=== PATIENT | female | born 1955 | race Caucasian/White ===

== ENCOUNTER 2016-04-08 19:39 | Inpatient (IN) | payer OTHER ==
[~2016-04-08] VITALS: Ht 157.5 cm; Wt 72.6 kg
[~2016-04-08 19:39] MED LIST: ACETAMINOPHEN325 M1 GT; ACETAMINOPHEN500 M5 PO; ALBUTEROL2.5 MG/3 M INH; AMBIEN5 MG ORAL; AMIKACIN S1000 MG/4 IJ; ARGININE GT; ASPIRIN81 MG GT; ATIVAN2 MG/1 ML GT; ATORVASTATIN CA80 MG GT; CATAPRES0.1 MG GT; CEFEPIME-D1 GM/50 ML IVPB; CEPHALEXIN500 MG GT; COLACE100 MG GT; COREG25 MG GT; DEPAKENE L250 MG/5 M GT; DEPAKOTE SPRIN125 MG GT; DIVALPROEX SOD125 M1 GT; DIVALPROEX SOD125 MG GT; DUONEB 0.5-3(2.53 ML HHN; FLUCONAZOLE100 MG GT; HEPARIN SO5000 UNIT2 SUBQ; HUMULIN R100 UNIT/1 SUBQ; INVANZ1 GM IVPB; KEFLEX PED250 MG/5 M PEG; KEFLEX500 M1 GT; KEPPRA LIQ100 MG/1 M GT; KEPPRA1000 MG GT; KEPPRA1000 MG ORAL; LACTULOSE20 GM/301 GT; LANTUS SOL100 UNIT/1 SUBQ; LEVAQUIN500 MG GT; LEVETIRACE100 MG/1 M GT; LIPITOR80 MG GT; LORAZEPAM0.5 GM MC; LORAZEPAM2 MG IV; LOVENOX10 M1 SUBQ; METRONIDAZOLE500 MG ORAL; MIRALAX17 G2 ORAL; MIRTAZAPINE15 MG GT; MORPHINE SU4 MG/1 M1 IV; MORPHINE SU4 MG/1 ML IV; MYLANTA II30 ML GT; NITROGLYCERIN0.4 MG SL; NOVOLOG100 UNIT/3 SUBQ; NOVOLOG100 UNIT/4 SQ; OMEPRAZOLE20 M3 GT; ONDANSETRON HCL4 M1 ORAL; PANTOPRAZOLE SO20 MG GT; POTASSIUM30 MEQ/22. GT; PRILOSEC20 MG GT; PRILOSEC20 MG ORAL; PROMETH-CODEIN 65 ML GT; PROMETHAZINE-C118 M1 ORAL; PROTONIX40 M2 GT; SANTYL30 GM TP; SULFAMETHOXAZO480 ML ORAL; TEMAZEPAM15 MG GT; TRILEPTAL150 MG GT; UNOBMED; VALPROIC A500 MG/10 ORAL; VANCOMYCIN1 GM/2502 IVPB; VITAMIN C500 M1 GT; VITAMIN C500 M7 GT; ZANTAC150 MG GT; ZINC SULFATE220 M1 GT; ZINC SULFATE220 M2 GT; ZOFRAN 4 MG4 MG/2 ML IV; ZOLPIDEM TARTRAT5 MG ORAL; ZYVOX600 MG GT; ZYVOX600 MG ORAL; [UNRECOGNIZED DRUG - OTHER]
[2016-04-08 19:44] VITALS: BP 87/51
[2016-04-08] MEDS ORDERED: Vancomycin 1 GM in NS 275 ML IV ONE (19:45)
--- NOTE | 2016-04-08 19:46 | Emergency Room Report ---
History of Present Illness General Chief Complaint: Fever Source: EMS Present Illness HPI Patient is a 60-year-old female sent in from shelter after increased fever and desaturation. Patient prior history of chronic debilitation do to heart attack as well as the CVA. The patient is bedridden and nonverbal at baseline. Patient was noted to have had increased fever to 103. The patient was sent in the hospital for further evaluation. The patient was noted to be DO NOT RESUSCITATE. The patient's paperwork states that the patient is okay for IV treatment as well as antibiotics Allergies: Coded Allergies: NO KNOWN DRUG ALLERGIES (Unverified Allergy, Unknown, 06/01/14) Patient History Now: No Reviewed Nursing Documentation: PMH: Agreed, PSxH: Agreed Nursing Documentation-PMH Past Medical History: No History, Except For Hx Cardiac Problems: Yes Hx Hypertension: Yes Hx Pacemaker: No Hx COPD: Yes Hx Diabetes: Yes Hx Cancer: No Hx Gastrointestinal Problems: Yes Hx Dialysis: No Hx Neurological Problems: Yes - Paraplegia Hx Seizures: Yes Hx Epilepsy: Yes Hx Tremors: Yes Hx Dysphasia: Yes Hx Weakness: Yes Procedures Critical Care Time Critical Care Time Patient had a critical medical condition which untreated could potentially result in life or limb threatening injury. Total critical care time excluding procedures approximately 45 minutes. Central Line Central Line : Consent: Emergent Central Line Lumen: triple Maximal Sterile Barrier Tech: yes cap, yes mask, yes sterile gown, yes sterile gloves, yes large sterile sheet, yes hand hygiene, yes chlorhexidine prep Central Line Postion: subclavian (R) Anesthesia: Lidocaine cc's of anesthesia: 3 Complications: none Central Line Post Position: sutured, good blood return, position confirmed w / CXR Attempts: Other - two Patient Tolerated: Well Complications: None Medical Decision Making Diagnostic Impression: Primary Impression: Septic shock ER Course Patient presented for fever. Differential diagnosis included was not limited to sepsis, neurologic fever, pneumonia, urinary tract infection, decubitus ulcers among others. Patient noted have history of multiple prior infectionsBecause of complexity of patient's case laboratory testing and imaging studies were ordered. IV access was unable to be established and the patient subsequently had emergent central venous catheter placement. The patient was given IV fluids and IV antibiotics. The patient was started on BiPAP. Dr. ah was contacted for inpatient management EKG Diagnostic Results Rate: tachycardiac Rhythm: NSR - 114 ST Segments: no acute changes ASA given to the pt in ED: No Rhythm Strip Diag. Results EP Interpretation: yes Rhythm: no PVC's, no ectopy Status: unchanged Disposition: ADMITTED INPATIENT Condition: Critical EvaristoPool Apr 08, 2016 19:46
[2016-04-08 19:57] VITALS: BP 87/51
[2016-04-08 20:24] LABS: BASOPHILS % (AUTO) 0.7 % (0.0-2.0); LYMPHOCYTES % (AUTO) 22.5 % (20.0-45.0); MEAN CORPUSCULAR HEMOGLOBIN 31.1 PG (27.0-31.0); MEAN CORPUSCULAR HGB CONC 31.3 G/DL (32.0-36.0); MEAN CORPUSCULAR VOLUME 99 FL (80-99); MEAN PLATELET VOLUME 10.5 FL (6.5-10.1); MONOCYTES % (AUTO) 4.4 % (1.0-10.0); NEUTROPHILS % (AUTO) 72.4 % (45.0-75.0); PLATELET COUNT 200 K/UL (150-450); RED BLOOD COUNT 3.57 M/UL (4.20-5.40); RED CELL DISTRIBUTION WIDTH 16.4 % (11.6-14.8); WHITE BLOOD COUNT 8.9 K/UL (4.8-10.8)
[2016-04-08 20:42] LABS: TROPONIN I < 0.30 ng/mL (<=0.30)
[2016-04-08 20:45] LABS: ALANINE AMINOTRANSFERASE 14 U/L (3-33); ASPARTATE AMINO TRANSFERASE 19 U/L (5-40); CALCIUM 8.6 mg/dL (8.6-10.2); CARBON DIOXIDE 32 mEQ/L (20-30); CREATININE 0.8 mg/dL (0.5-0.9); GLOMERULAR FILTRATION RATE > 60 mL/min (>60)
[2016-04-08 20:46] LABS: ALBUMIN/GLOBULIN RATIO 0.7 (1.0-2.7); ANION GAP 11 (5-15); CHLORIDE 104 mEQ/L (98-107); HEMOLYSIS 9; SODIUM 147 mEQ/L (135-145); TOTAL PROTEIN 6.2 g/dL (6.6-8.7)
[2016-04-08 20:49] LABS: REFLEX LACTIC ACID YES OR NO YES
[2016-04-08 20:56] LABS: CKMB < 1.5 ng/mL (< 3.8)
[2016-04-08] MEDS ORDERED: Lidocaine 1% MPF 10mg/ml 5ml ONE (21:08)
[2016-04-08] MEDS ORDERED: Cefepime 1gm vial ONE (22:14)
[2016-04-08] MEDS: Cefepime HCl 1 GM in NS 55 ML IV SCH (22:14)
[2016-04-08] MEDS: metroNIDAZOLE 500mg 100 ML IV SCH (22:48)
[2016-04-08 22:58] VITALS: BP 120/98
[2016-04-08] MEDS ORDERED: Miralax 17gm pkt ORAL PRN (23:00)
[2016-04-08] MEDS ORDERED: DuoNeb 0.5-3(2.5)mg/3ml neb HHN PRN (23:00)
[2016-04-08] MEDS ORDERED: LORazepam Inj 2mg/ml 1ml IV PRN (23:00)
[2016-04-08] MEDS ORDERED: Morphine Sulfate 4mg/ml Inj IVP PRN (23:00)
[2016-04-08] MEDS ORDERED: Vancomycin 1 GM in D5W 275 ML IV SCH (23:00)
[2016-04-08 23:15] VITALS: BP 92/55
[2016-04-08 23:41] LABS: APPEARANCE,URINE CLEAR; KETONES,URINE NEGATIVE (NEGATIVE); LEUKOCYTE ESTERASE ,URINE 3+ (NEGATIVE); NITRITE,URINE NEGATIVE (NEGATIVE); PH,URINE 6 (4.5-8.0); PROTEIN,URINE 2+ (NEGATIVE); UROBILINOGEN,URINE 1 MG/DL (0.0-1.0)
[2016-04-09] VITALS (10 sets, daily range): BP systolic 80–99; BP diastolic 50–66
[2016-04-09] MEDS ORDERED: Vancomycin 1gm inj IVPB ONE (00:15)
[2016-04-09 00:19] LABS: WBC,URINE 40-60 /HPF (0 - 2)
[2016-04-09 00:20] LABS: BACTERIA,URINE MODERATE /HPF; SQUAMOUS EPITHELIAL CELL,UR FEW /LPF (NONE/OCC)
[2016-04-09] MEDS: metroNIDAZOLE 500mg 100 ML IV SCH (03:45)
[2016-04-09 05:28] LABS: BASOPHILS % (AUTO) 0.9 % (0.0-2.0); LYMPHOCYTES % (AUTO) 17.8 % (20.0-45.0); MEAN CORPUSCULAR HEMOGLOBIN 31.8 PG (27.0-31.0); MEAN CORPUSCULAR HGB CONC 32.2 G/DL (32.0-36.0); MEAN CORPUSCULAR VOLUME 99 FL (80-99); MEAN PLATELET VOLUME 10.4 FL (6.5-10.1); MONOCYTES % (AUTO) 3.3 % (1.0-10.0); PLATELET COUNT 122 K/UL (150-450); RED BLOOD COUNT 2.71 M/UL (4.20-5.40); RED CELL DISTRIBUTION WIDTH 16.4 % (11.6-14.8); WHITE BLOOD COUNT 6.1 K/UL (4.8-10.8)
[2016-04-09 06:55] LABS: ANION GAP 8 (5-15); CALCIUM 7.4 mg/dL (8.6-10.2); CARBON DIOXIDE 30 mEQ/L (20-30); CHLORIDE 113 mEQ/L (98-107); CREATININE 0.5 mg/dL (0.5-0.9); GLOMERULAR FILTRATION RATE > 60 mL/min (>60); HEMOLYSIS 4; PHOSPHORUS 3.2 mg/dL (2.5-4.8); POTASSIUM 3.9 mEQ/L (3.4-4.9); SODIUM 151 mEQ/L (135-145)
[2016-04-09] MEDS ORDERED: Cefepime 1gm vial ONE (07:37)
[2016-04-09] MEDS: Cefepime HCl 1 GM in NS 55 ML IV SCH (07:37)
[2016-04-09] MEDS ORDERED: Carvedilol 25mg Tab GT SCH (09:00)
[2016-04-09] MEDS: Heparin 5000 units/ml inj SUBQ SCH ×2 (09:43→22:44)
--- NOTE | 2016-04-09 11:49 | History and Physical ---
History of Present Illness General Date patient seen: Apr 09, 2016 Reason for Hospitalization: Fever Present Illness HPI 60-year-old female with PMHx of Dementia, Gtube, bed bound, intermediate resident was sent in from intermediate after increased fever and desaturation. Patient was noted to have had increased fever to 103. The patient was sent in the hospital for further evaluation. Pt had respiratory failure and was put on BIPAP to help with saturation. Currently she looks comfortable. Allergies: Coded Allergies: NO KNOWN DRUG ALLERGIES (Unverified Allergy, Unknown, 06/01/14) Medication History Scheduled Acetaminophen (Acetaminophen), 650 MG PO Q4HR, (Reported) Carvedilol (Coreg), 25 MG GT EVERY 12 HOURS, (Reported) Collagenase Clostridium Hist. (Santyl), 1 APPLIC TP DAILY, (Reported) Divalproex Sodium (Depakote Sprinkle), 500 MG GT Q8HR, (Reported) Heparin Sod (Porcine) (Heparin Sodium*), 5,000 UNITS SUBQ EVERY 12 HOURS, ( Reported) Insulin Aspart (Novolog), 100 UNIT SQ Q6HR, (Reported) Levetiracetam (Keppra), 1,500 MG ORAL Q12HR, (Reported) Zinc Sulfate (Zinc Sulfate), 220 MG GT DAILY, (Reported) Scheduled PRN Clonidine Hcl* (Catapres*), 0.1 MG GT EVERY 6 HOURS PRN for For High Blood Pressure, (Reported) Lorazepam* (Ativan*), 2 MG IV Q1HR PRN for seizure, (Reported) Ondansetron* (Zofran*), 4 MG IV Q6H PRN for Nausea & Vomiting, (Reported) Polyethylene Glycol 3350* (Miralax*), 17 GM ORAL HS PRN for Constipation, ( Reported) Zolpidem Tartrate* (Ambien*), 5 MG ORAL BEDTIME PRN for Insomnia, (Reported) Miscellaneous Medications Unable to Obtain Medications (Unable To Obtain Meds), (Reported) Patient History Healthcare decision maker Resuscitation status Advanced Directive on File Past Medical/Surgical History Past Medical/Surgical History: (1) Decubitus ulcer of sacral area (2) Cerebral vascular disease (3) Seizure disorder (4) Anoxic encephalopathy Review of Systems All Other Systems: negative except mentioned in HPI Physical Exam General Appearance: cachetic Lines, tubes and drains: peripheral, central line HEENT: normocephalic, atraumatic Neck: non-tender, normal alignment Respiratory/Chest: chest wall non-tender, lungs clear Cardiovascular/Chest: normal peripheral pulses, normal rate Abdomen: normal bowel sounds, non tender Genitourinary/Rectal: normal genital exam Skin Exam: normal pigmentation Neurologic: electronic news gathering editor II-XII grossly normal Last 24 Hour Vital Signs Date Time Temp Pulse Resp B/P Pulse Ox O2 Delivery O2 Flow Rate FiO2 04/09/16 11:42 98.9 93 24 85/55 99 Bi-pap 15.0 35 04/09/16 11:12 98.9 93 24 85/55 99 Bi-pap 15.0 35 04/09/16 10:00 90 16 84/52 99 Bi-pap 15.0 35 04/09/16 09:00 98 16 80/50 98 Bi-pap 15.0 35 04/09/16 09:00 90 84/52 04/09/16 08:48 97 18 98 Facial 35 04/09/16 08:30 99.6 94 18 82/54 98 Bi-pap 15.0 35 04/09/16 07:14 90 15 99 Facial 35 04/09/16 06:18 99.6 91 14 83/53 98 Bi-pap 15.0 35 04/09/16 05:22 94 18 98 Facial 35 04/09/16 04:18 98.9 96 19 84/56 100 15.0 35 04/09/16 02:34 94 16 100 Facial 35 04/09/16 01:20 96 24 94/60 100 Bi-pap 35 04/09/16 00:35 96 16 100 Facial 35 04/08/16 23:50 35 04/08/16 23:15 101 20 92/55 100 Bi-pap 35 04/08/16 22:58 103.0 100 20 120/98 98 15.0 35 04/08/16 22:43 100 20 99 Facial 35 04/08/16 20:57 115 22 100 Facial 35 04/08/16 20:57 115 22 Bi-pap 35 04/08/16 19:57 103.0 113 17 87/51 94 Non-Rebreather 15.0 04/08/16 19:44 113 17 87/51 94 Non-Rebreather 15.0 04/08/16 19:38 108 20 91/60 100 Non-Rebreather 15.0 Intake and Output 04/08/16 04/09/16 19:00 07:00 Intake Total 2530 ml Output Total 120 ml Balance 2410 ml Intake IV Total 2530 ml Output Stool Total 120 ml # Voids 1 # Bowel Movements 1 Laboratory Tests Test 04/08/16 20:10 04/08/16 21:05 04/08/16 23:29 04/09/16 05:00 White Blood Count 8.9 K/UL (4.8-10.8) 6.1 K/UL (4.8-10.8) Red Blood Count 3.57 M/UL (4.20-5.40) L 2.71 M/UL (4.20-5.40) L Hemoglobin 11.1 G/DL (12.0-16.0) L 8.6 G/DL (12.0-16.0) L Hematocrit 35.4 % (37.0-47.0) L 26.8 % (37.0-47.0) L Mean Corpuscular Volume 99 FL (80-99) 99 FL (80-99) Mean Corpuscular Hemoglobin 31.1 PG (27.0-31.0) H 31.8 PG (27.0-31.0) H Mean Corpuscular Hemoglobin Concent 31.3 G/DL (32.0-36.0) L 32.2 G/DL (32.0-36.0) Red Cell Distribution Width 16.4 % (11.6-14.8) H 16.4 % (11.6-14.8) H Platelet Count 200 K/UL (150-450) 122 K/UL (150-450) L Mean Platelet Volume 10.5 FL (6.5-10.1) H 10.4 FL (6.5-10.1) H Neutrophils (%) (Auto) 72.4 % (45.0-75.0) 78.0 % (45.0-75.0) H Lymphocytes (%) (Auto) 22.5 % (20.0-45.0) 17.8 % (20.0-45.0) L Monocytes (%) (Auto) 4.4 % (1.0-10.0) 3.3 % (1.0-10.0) Eosinophils (%) (Auto) 0.0 % (0.0-3.0) 0.0 % (0.0-3.0) Basophils (%) (Auto) 0.7 % (0.0-2.0) 0.9 % (0.0-2.0) Sodium Level 147 mEQ/L (135-145) H 151 mEQ/L (135-145) H Potassium Level 4.0 mEQ/L (3.4-4.9) 3.9 mEQ/L (3.4-4.9) Chloride Level 104 mEQ/L (98-107) 113 mEQ/L (98-107) H Carbon Dioxide Level 32 mEQ/L (20-30) H 30 mEQ/L (20-30) Anion Gap 11 (5-15) 8 (5-15) Blood Urea Nitrogen 43 mg/dL (7-23) H 37 mg/dL (7-23) H Creatinine 0.8 mg/dL (0.5-0.9) 0.5 mg/dL (0.5-0.9) Estimat Glomerular Filtration Rate > 60 mL/min (>60) > 60 mL/min (>60) Glucose Level 170 mg/dL (74-106) H 162 mg/dL (74-106) H Lactic Acid Level 3.00 mmol/L (0.66-2.22) H 2.70 mmol/L (0.66-2.22) H Calcium Level 8.6 mg/dL (8.6-10.2) 7.4 mg/dL (8.6-10.2) L Total Bilirubin 0.3 mg/dL (0.0-1.2) Aspartate Amino Transf (AST/SGOT) 19 U/L (5-40) Alanine Aminotransferase (ALT/SGPT) 14 U/L (3-33) Alkaline Phosphatase 48 U/L (35-104) Total Creatine Kinase 31 U/L (26-140) Creatine Kinase MB < 1.5 ng/mL (< 3.8) Creatine Kinase MB Relative Index Troponin I < 0.30 ng/mL (<=0.30) Total Protein 6.2 g/dL (6.6-8.7) L Albumin 2.7 g/dL (3.5-5.2) L 2.1 g/dL (3.5-5.2) L Globulin 3.5 g/dL Albumin/Globulin Ratio 0.7 (1.0-2.7) L Urine Color Yellow Urine Appearance Clear Urine pH 6 (4.5-8.0) Urine Specific [place] 1.025 (1.005-1.035) Urine Protein 2+ (NEGATIVE) H Urine Glucose (UA) Negative (NEGATIVE) Urine Ketones Negative (NEGATIVE) Urine Occult Blood 3+ (NEGATIVE) H Urine Nitrite Negative (NEGATIVE) Urine Bilirubin Negative (NEGATIVE) Urine Urobilinogen 1 MG/DL (0.0-1.0) H Urine Leukocyte Esterase 3+ (NEGATIVE) H Urine RBC 5-10 /HPF (0 - 2) H Urine WBC 40-60 /HPF (0 - 2) H Urine Squamous Epithelial Cells Few /LPF (NONE/OCC) Urine Bacteria Moderate /HPF (NONE) H Phosphorus Level 3.2 mg/dL (2.5-4.8) Microbiology Date/Time Source Procedure Growth Status 04/09/16 00:17 Nasal Nares Influenza Types A,B Antigen (RENA) - Final Complete Height (Feet): 5 Height (Inches): 2.00 Weight (Pounds): 152 Medications Current Medications Medications (Trade) Dose Ordered Sig/Kimo Route PRN Reason Start Time Stop Time Status Last Admin Dose Admin Acetaminophen (Tylenol) 650 mg Q4H PRN ORAL FEVER 04/08/16 23:00 05/08/16 22:59 Albuterol/ Ipratropium 3 ml 3 ml Q4H PRN HHN Shortness of Breath 04/08/16 23:00 04/13/16 22:59 Carvedilol (Coreg) 25 mg EVERY 12 HOURS GT 04/09/16 09:00 05/09/16 08:59 Cefepime HCl 2 gm/ Dextrose 110 ml @ 220 mls/hr EVERY 12 HOURS IV 04/09/16 09:00 04/16/16 08:59 UNV Clonidine HCl (Catapres) 0.1 mg Q6H PRN GT For High Blood Pressure 04/08/16 23:00 05/08/16 22:59 Dextrose STAT PRN IV Hypoglycemia 04/08/16 23:00 05/08/16 22:59 Divalproex Sodium (Depakote Sprinkles) 500 mg Q8HR GT 04/09/16 06:00 05/09/16 05:59 UNV Heparin Sodium (Porcine) (Heparin 5000 units/ml) 5,000 units EVERY 12 HOURS SUBQ 04/09/16 09:00 05/09/16 08:59 04/09/16 09:43 Levetiracetam 1500 mg 1,500 mg Q12HR ORAL 04/09/16 09:00 05/09/16 08:59 04/09/16 09:42 Lorazepam (Ativan 2mg/ml 1ml) 2 mg Q2H PRN IV For Anxiety 04/08/16 23:00 04/15/16 22:59 Morphine Sulfate (Morphine Sulfate) 4 mg Q4H PRN IVP Severe Pain (Pain Scale 7-10) 04/08/16 23:00 04/15/16 22:59 Ondansetron HCl (Zofran) 4 mg Q6H PRN IVP Nausea & Vomiting 04/08/16 23:00 05/08/16 22:59 Polyethylene Glycol (Miralax) 17 gm DAILYPRN PRN ORAL Constipation 04/08/16 23:00 05/08/16 22:59 Sodium Chloride (0.45% NS 1000ml) 1,000 ml @ 50 mls/hr Q20H IV 04/09/16 09:00 05/09/16 08:59 Sodium Chloride (Sodium Chloride 1000ml bag) 1,000 ml @ 200 mls/hr Q5H IV 04/09/16 08:45 05/09/16 08:44 04/09/16 08:45 Vancomycin HCl/ Dextrose (Vancomycin/D5W) 275 ml @ 183.3 mls/ hr Q24H IV 04/08/16 23:00 04/13/16 22:59 UNV Assessment/Plan Problem List: (1) Septic shock ICD Codes: A41.9 - Septic shock; R65.21 - Severe sepsis with septic shock SNOMED: 23193960 (2) Acute respiratory failure ICD Codes: J96.00 - Acute respiratory failure, unspecified whether with hypoxia or hypercapnia SNOMED: 39185629 (3) Anoxic encephalopathy ICD Codes: G93.1 - Anoxic encephalopathy SNOMED: 747175307 (4) Decubitus ulcer of sacral area ICD Codes: L89.159 - Pressure ulcer of sacral region, unspecified stage SNOMED: 931273752 (5) Cerebral vascular disease ICD Codes: I67.9 - Cerebrovascular disease, unspecified SNOMED: 54959810 (6) Seizure disorder ICD Codes: G40.909 - Epilepsy, unspecified, not intractable, without status epilepticus SNOMED: 260859567 Respiratory: monitor respiratory rate, adjust FIO2 Cardiac: continue to monitor HR/BP Renal: F/U I&O, check electrolytes Infectious Disease: check cultures, add antibiotics Gastrointestinal: hold feedings Endocrine: monitor blood sugar Hematologic: monitor H/H, transfuse if hgb<8.5 Neurologic: PRN Ativan, PRN Morphine, keep patient comfortable Notes Reviewed: pv design and installation technician BISHOP PENA Apr 09, 2016 11:49
[2016-04-09] MEDS ORDERED: Vancomycin 1.5 GM in D5W 325 ML IVPB SCH (14:00)
[2016-04-09] MEDS: Depakote 125mg Sprinkles GT SCH ×2 (15:24→22:34)
[2016-04-09] MEDS: Vancomycin 1.5 GM in D5W 325 ML IVPB SCH (17:41)
--- NOTE | 2016-04-09 20:44 | Wound Care Consultation ---
Wound Assessment Wound Assessment #1: Wound Present on Admission: Yes New Wound: No Status Change of Wound: No Wound Location Body Site Modif: mid Wound Location Body Site: sacral Wound Type: pressure ulcer Angelo Test: Does not Angelo Pressure Ulcer Stage: IV/unstageable Wound Thickness: Full Thickness Wound Length: 1.0 Wound Width: 1.0 Wound Depth: 1.0 Percent of Wound [place]/Red: 100 Wound Drainage Description: Serosanguineous Wound Drainage Amount: Moderate Wound Drainage Odor: None/Absent Tissue Surrounding Wound: Macerated Wound General Appearance: Reddened, Draining Wound Assessment #2: Wound Number: #2 Wound Present on Admission: Yes New Wound: No Status Change of Wound: No Wound Location Body Site Modif: right Wound Location Body Site: metatarsal head - 3rd Wound Type: pressure ulcer Angelo Test: Does not Angelo Pressure Ulcer Stage: IV/unstageable Wound Thickness: Full Thickness Wound Length: 3.0 Wound Width: 2.5 Wound Depth: utd Percent of Wound Black/Brown: 100 Wound Drainage Amount: None Wound Drainage Odor: None/Absent Tissue Surrounding Wound: Indurated Wound General Appearance: Blackened Wound Assessment #3: Wound Number: #3 Wound Present on Admission: Yes New Wound: No Status Change of Wound: No Wound Location Body Site Modif: right Wound Location Body Site: metatarsal head - 1st Wound Type: pressure ulcer Angelo Test: Does not Angelo Pressure Ulcer Stage: III Wound Thickness: Full Thickness Wound Length: 3.0 Wound Width: 3.0 Wound Depth: 0.3 Percent of Wound [place]/Red: 100 Wound Drainage Description: Serosanguineous Wound Drainage Amount: Moderate Wound Drainage Odor: None/Absent Tissue Surrounding Wound: Erythemic Wound General Appearance: Reddened, Draining Wound Assessment #4: Wound Number: #4 Wound Present on Admission: Yes New Wound: No Status Change of Wound: No Wound Location Body Site Modif: right, lateral Wound Location Body Site: malleolus/ankle Wound Type: pressure ulcer Angelo Test: Does not Angelo Pressure Ulcer Stage: IV/unstageable Wound Thickness: Full Thickness Wound Length: 4.0 Wound Width: 2.5 Wound Depth: 0.3 Percent of Wound [place]/Red: 70 Percent of Wound Black/Brown: 30 Wound Drainage Description: Serosanguineous Wound Drainage Amount: Moderate Wound Drainage Odor: None/Absent Tissue Surrounding Wound: Macerated Wound General Appearance: Reddened, Bleeding Wound Assessment #5: Wound Number: #5 Wound Present on Admission: Yes New Wound: No Status Change of Wound: No Wound Location Body Site Modif: left Wound Location Body Site: malleolus/ankle Wound Type: pressure ulcer Angelo Test: Does not Angelo Wound Thickness: Full Thickness Wound Length: 2.5 Wound Width: 3.5 Wound Depth: utd Percent of Wound Black/Brown: 100 Wound Drainage Description: Serosanguineous Wound Drainage Amount: Scant Wound Drainage Odor: None/Absent Tissue Surrounding Wound: Erythemic Wound General Appearance: Blackened Wound Assessment #6: Wound Number: #6 Wound Present on Admission: Yes New Wound: No Status Change of Wound: No Wound Location Body Site Modif: left, mid, lateral Wound Location Body Site: foot Wound Type: pressure ulcer Angelo Test: Does not Angelo Pressure Ulcer Stage: IV/unstageable Wound Thickness: Full Thickness Wound Length: 4.0 Wound Width: 2.5 Wound Depth: 0.3 Percent of Wound [place]/Red: 100 Wound Drainage Description: Serosanguineous Wound Drainage Amount: Scant Wound Drainage Odor: None/Absent Tissue Surrounding Wound: Macerated Wound General Appearance: Reddened, Well Approximated, Draining Wound Assessment #7: Wound Number: #7 Wound Present on Admission: Yes New Wound: No Status Change of Wound: No Wound Location Body Site Modif: left Wound Location Body Site: heel Wound Type: pressure ulcer Angelo Test: Does not Angelo Pressure Ulcer Stage: IV/unstageable Wound Thickness: Full Thickness Wound Length: 1.0 Wound Width: 1.0 Wound Depth: utd Percent of Wound Black/Brown: 100 Wound Drainage Amount: None Wound Drainage Odor: None/Absent Tissue Surrounding Wound: Intact Wound General Appearance: Asymptomatic, Blackened Wound Assessment #8: Wound Number: #8 Wound Present on Admission: Yes New Wound: No Status Change of Wound: No Wound Location Body Site Modif: right, posterior Wound Location Body Site: toe - 4th Wound Type: pressure ulcer Angelo Test: Does not Angelo Pressure Ulcer Stage: IV/unstageable Wound Thickness: Full Thickness Wound Length: 0.5 Wound Width: 1.0 Wound Depth: utd Percent of Wound Black/Brown: 100 Wound Drainage Amount: None Wound Drainage Odor: None/Absent Tissue Surrounding Wound: Intact Wound General Appearance: Asymptomatic, Blackened Wound Comment #1 Sacral stage IV/unstageable pressure ulcer #2 Right foot 3rd metatarsal head stage IV/unstageable pressure ulcer with black eschar adhered to the wound bed #3 Right foot 1st metatarsal head stage III pressure ulcer #4 Right malleolus stage IV/unstageable pressure ulcer #5 Right posterior 4th toe stage IV/unstageable pressure ulcer with black eschar adhered to the wound bed #6 Left malleolus stage IV/unstageable pressure ulcer #7 Left heel stage IV/unstageable pressure ulcer with black eschar adhered to the wound bed #8 Left mid lateral foot stage IV pressure ulcer Recommendation -Local wound care as ordered -Turn and reposition -Keep clean and dry -Optimize nutrition -Low air loss overlay mattress -Offload both heels -Heel protector on both heels -Assess and f/u accordingly for any changes CARMELITA DE SOUZA RN Apr 09, 2016 20:44
--- NOTE | 2016-04-09 22:08 | Consultation ---
Consult Note Assessment/Plan ID Dic # [id number] A: The patient is a 60-year-old female with Sepsis aspiration pneumonia Probable UTI UCx : :P Respiratory distress, CVA. SP PEG placement. History of anoxic brain damage. History of paraplegia. Seizure disorder. anemia. History of myocardial infarction. Hyperlipidemia. Hypertension. COPD. GERD DM Depression PLAN: Cont IV cefepime and IV vancomycin d# 2 Monitor cultures (blood, sputum, and urine). CBC. Monitor BMP. Monitor chest x-ray Thank you DEIDRA RAMOS M.D. Apr 09, 2016 22:08
[2016-04-09] MEDS: Cefepime HCl 2 GM in D5W 110 ML IV SCH (22:32)
[2016-04-10] VITALS: BP 100/71
[2016-04-10 04:00] VITALS: BP 99/66
--- NOTE | 2016-04-10 04:07 | Consultation ---
DATE OF CONSULTATION: 04/09/2016 INFECTIOUS DISEASE CONSULTATION CONSULTING PHYSICIAN: Jonatan Lee M.D. REQUESTING PHYSICIAN: Aida Lopez M.D. REASON FOR CONSULTATION: Evaluation of the patient for pneumonia, fever, and antibiotic management. HISTORY OF PRESENT ILLNESS: The patient is a 60-year-old female with multiple medical problems as listed below, was [facility] to [facility] center due to fever and respiratory distress. The patient is on BiPAP, was found to have fever of 103. Infectious Disease consultation has been requested for further evaluation of the patient's antibiotic management. The patient is unable to provide information. Most of the information was gathered through the chart and speaking to the staff. PAST MEDICAL HISTORY: 1. History of sepsis. 2. History of aspiration pneumonia. 3. History of urinary tract infection. 4. History of CVA. 5. Status post PEG placement. 6. Anoxic brain damage. 7. Quadriplegia. 8. Seizure disorder. 9. Anemia. 10. Coronary artery disease/myocardial infarction. 11. Hyperlipidemia. 12. Hypertension. 13. COPD. 14. GERD. 15. Diabetes. 16. Depression. ALLERGIES: No known drug allergies. MEDICATIONS: Cefepime and vancomycin. SOCIAL HISTORY: The patient lives in [facility]. FAMILY HISTORY: Unavailable. REVIEW OF SYSTEMS: Unobtainable. PHYSICAL EXAMINATION: VITAL SIGNS: Temperature 98.4 degrees, pulse 86, respiratory rate 18, and T-max 103. HEENT: Mild pale conjunctivae. No icterus. NECK: No lymphadenopathy. CHEST: Coarse breathing sounds. HEART: S1 and S2. ABDOMEN: Soft. G-tube in place. EXTREMITIES: No cyanosis. NEUROLOGIC: Nonverbal. LABORATORY AND DIAGNOSTIC DATA: White blood cells 6, hemoglobin 8.6, and platelets 122,000. UA shows 40 to 60 white blood cells. BUN 37 and creatinine 0.5. ALT, AST, and alkaline phosphatase are unremarkable. Influenza test is negative. Hip x-ray, no fracture. Chest x-ray is pending. ASSESSMENT: The patient is a 60-year-old female with multiple medical problems as listed below who came to the hospital. The patient has pyuria, respiratory distress, probable underlying pneumonia, and healthcare-associated pneumonia with possibility bacteremia. PLAN: 1. We will continue the patient on IV vancomycin and cefepime. 2. Monitor cultures of blood, urine, and sputum. 3. Monitor chest x-ray. 4. Monitor cultures. Based on clinical course and laboratories, we will do further recommendation. Thank you, Dr. Lopez, for allowing me to participate in the care of this patient. I will follow the patient with you during this hospitalization. Jonatan Lee M.D. DR: HIMA JOB#: [id number] CC:
[2016-04-10 05:31] LABS: BASOPHILS % (AUTO) 0.5 % (0.0-2.0); LYMPHOCYTES % (AUTO) 17.8 % (20.0-45.0); MEAN CORPUSCULAR VOLUME 100 FL (80-99); MEAN PLATELET VOLUME 11.6 FL (6.5-10.1); MONOCYTES % (AUTO) 3.5 % (1.0-10.0); NEUTROPHILS % (AUTO) 78.2 % (45.0-75.0); PLATELET COUNT 120 K/UL (150-450); RED BLOOD COUNT 2.58 M/UL (4.20-5.40); RED CELL DISTRIBUTION WIDTH 16.7 % (11.6-14.8); WHITE BLOOD COUNT 4.4 K/UL (4.8-10.8)
[2016-04-10 05:52] LABS: ALANINE AMINOTRANSFERASE 11 U/L (3-33); ALBUMIN/GLOBULIN RATIO 0.7 (1.0-2.7); ANION GAP 11 (5-15); ASPARTATE AMINO TRANSFERASE 17 U/L (5-40); CALCIUM 7.7 mg/dL (8.6-10.2); CARBON DIOXIDE 28 mEQ/L (20-30); CHLORIDE 111 mEQ/L (98-107); CREATININE 0.4 mg/dL (0.5-0.9); GLOMERULAR FILTRATION RATE > 60 mL/min (>60); HEMOLYSIS 2; POTASSIUM 3.7 mEQ/L (3.4-4.9); SODIUM 150 mEQ/L (135-145)
[2016-04-10] MEDS: Depakote 125mg Sprinkles GT SCH ×3 (07:01→21:50)
[2016-04-10 08:00] VITALS: BP 131/61
[2016-04-10] MEDS: Cefepime HCl 2 GM in D5W 110 ML IV SCH ×2 (08:37→20:34)
--- NOTE | 2016-04-10 08:37 | Pulmonolgy Critical Care Note ---
Critical Care - Asmt/Plan Problems: (1) Septic shock (2) Acute respiratory failure (3) Sacral decubitus ulcer (4) Cerebral vascular disease (5) Seizure disorder (6) Anoxic encephalopathy Respiratory: monitor respiratory rate, adjust FIO2, CXR Cardiac: continue to monitor HR/BP Renal: F/U I&O, keep IV fluid Infectious Disease: check cultures Gastrointestinal: continue feedings/current rate Endocrine: check TSH, continue sliding scale insulin Hematologic: monitor H/H, transfuse if hgb<8.5 Neurologic: PRN Ativan, PRN Morphine, keep patient comfortable Affect: PRN ativan Prophylaxis: Heparin Notes Reviewed: administrative office manager, cardio, renal Discussed with: nurses, consultants, correctional counselor/case managertelegraph office manager - Objective Last 24 Hour Vital Signs Date Time Temp Pulse Resp B/P Pulse Ox O2 Delivery O2 Flow Rate FiO2 04/10/16 07:03 93 18 99 Facial 40 04/10/16 05:16 88 27 100 Facial 40 04/10/16 04:00 99.1 88 22 99/66 100 Bi-pap 40 04/10/16 04:00 40 04/10/16 03:32 94 04/10/16 02:51 95 18 100 Facial 40 04/10/16 01:02 96 20 100 Facial 40 04/10/16 00:00 98.9 98 18 100/71 100 Bi-pap 40 04/10/16 00:00 40 04/09/16 22:50 99 22 99 Facial 40 04/09/16 21:00 100 17 98 Facial 40 04/09/16 20:00 99.1 104 25 99/60 98 Bi-pap 40 04/09/16 20:00 35 04/09/16 20:00 102 04/09/16 19:15 101 21 97 Facial 40 04/09/16 17:20 99 20 95 Facial 40 04/09/16 16:12 98.4 102 20 99/66 100 Bi-pap 40 04/09/16 16:00 35 04/09/16 16:00 102 04/09/16 14:59 101 14 94 Facial 40 04/09/16 13:25 104 20 95 Facial 40 04/09/16 12:30 35 04/09/16 12:00 98.2 100 20 90/63 100 Bi-pap 35 04/09/16 11:42 98.9 93 24 85/55 99 Bi-pap 15.0 35 04/09/16 11:29 95 20 99 Facial 35 04/09/16 11:12 98.9 93 24 85/55 99 Bi-pap 15.0 35 04/09/16 10:00 90 16 84/52 99 Bi-pap 15.0 35 04/09/16 09:00 98 16 80/50 98 Bi-pap 15.0 35 04/09/16 09:00 90 84/52 04/09/16 08:48 97 18 98 Facial 35 Status: awake Condition: critical HEENT: atraumatic, normocephalic Lungs: clear Heart: HR/BP stable, regular Abdomen: soft Extremities: no C/C/E, edema Decubiti: location Micro: Microbiology Date/Time Source Procedure Growth Status 04/08/16 20:15 Blood Blood Culture - Preliminary NO GROWTH AFTER 24 HOURS Resulted 04/08/16 20:10 Blood Blood Culture - Preliminary NO GROWTH AFTER 24 HOURS Resulted 04/09/16 00:17 Nasal Nares Influenza Types A,B Antigen (RENA) - Final Complete Accucheck: 185 Critical Care - Subjective ROS Limited/Unobtainable: Yes Interval Events: still on BIPAP EKG Rhythm: Sinus Rhythm FI02: 40 Vent Support Breath Rate: 18 Vent Support Mode: BiLevel Sputum Amount: None Fluids: 1/2 NS 50 cc.hour I&O: Intake and Output 04/09/16 04/10/16 18:59 06:59 Intake Total 525 ml 1035.0 ml Output Total 200 ml 1350 ml Balance 325 ml -315.0 ml Intake Free Water 50 ml IV Total 475 ml 1035.0 ml Output Urine Total 200 ml 1350 ml # Bowel Movements 2 2 CXR: RML atelectasis Labs: Laboratory Tests Test 04/10/16 04:30 White Blood Count 4.4 K/UL (4.8-10.8) L Red Blood Count 2.58 M/UL (4.20-5.40) L Hemoglobin 8.2 G/DL (12.0-16.0) L Hematocrit 25.7 % (37.0-47.0) L Mean Corpuscular Volume 100 FL (80-99) H Mean Corpuscular Hemoglobin 32.0 PG (27.0-31.0) H Mean Corpuscular Hemoglobin Concent 32.0 G/DL (32.0-36.0) Red Cell Distribution Width 16.7 % (11.6-14.8) H Platelet Count 120 K/UL (150-450) L Mean Platelet Volume 11.6 FL (6.5-10.1) H Neutrophils (%) (Auto) 78.2 % (45.0-75.0) H Lymphocytes (%) (Auto) 17.8 % (20.0-45.0) L Monocytes (%) (Auto) 3.5 % (1.0-10.0) Eosinophils (%) (Auto) 0.0 % (0.0-3.0) Basophils (%) (Auto) 0.5 % (0.0-2.0) Sodium Level 150 mEQ/L (135-145) H Potassium Level 3.7 mEQ/L (3.4-4.9) Chloride Level 111 mEQ/L (98-107) H Carbon Dioxide Level 28 mEQ/L (20-30) Anion Gap 11 (5-15) Blood Urea Nitrogen 25 mg/dL (7-23) H Creatinine 0.4 mg/dL (0.5-0.9) L Estimat Glomerular Filtration Rate > 60 mL/min (>60) Glucose Level 157 mg/dL (74-106) H Calcium Level 7.7 mg/dL (8.6-10.2) L Total Bilirubin 0.3 mg/dL (0.0-1.2) Aspartate Amino Transf (AST/SGOT) 17 U/L (5-40) Alanine Aminotransferase (ALT/SGPT) 11 U/L (3-33) Alkaline Phosphatase 35 U/L (35-104) Total Protein 5.0 g/dL (6.6-8.7) L Albumin 2.1 g/dL (3.5-5.2) L Globulin 2.9 g/dL Albumin/Globulin Ratio 0.7 (1.0-2.7) L BISHOP PENA Apr 10, 2016 08:37
[2016-04-10] MEDS: Heparin 5000 units/ml inj SUBQ SCH ×2 (09:00→20:29)
[2016-04-10 10:51] LABS: ANISOCYTOSIS 1+; BAND NEUTROPHILS % (MANUAL) 6 % (0-8); BASOPHILS % (MANUAL) 0 % (0-2); EOSINOPHILS % (MANUAL) 0 % (0-3); HYPOCHROMASIA 1+; LYMPHOCYTES % (MANUAL) 15 % (20-45); MACROCYTES 1+; NEUTROPHILS % (MANUAL) 75 % (45-75); PLATELET ESTIMATE DECREASED; PLATELET MORPHOLOGY NORMAL; TOTAL CELLS COUNTED 100
[2016-04-10 10:55] LABS: POLYCHROMASIA OCCASIONAL
[2016-04-10 10:58] LABS: PATH BLOOD SMEAR/OMC SENT TO PATHOLOGIST
[2016-04-10 11:08] LABS: RETICULOCYTE COUNT 1.2 % (0.0-2.0)
[2016-04-10 12:00] VITALS: BP 110/66
[2016-04-10 12:09] LABS: INR 1.1 (0.9-1.1); PROTHROMBIN TIME 11.5 SEC (9.30-11.50)
--- NOTE | 2016-04-10 12:38 | Cardiology Report ---
APPROVED REPORT EKG Measurement Heart [id number] Sinus tachycardia Low voltage QRS Borderline ECG
[2016-04-10 16:00] VITALS: BP 111/85
[2016-04-10] MEDS: Vancomycin 1.5 GM in D5W 325 ML IVPB SCH (18:00)
--- NOTE | 2016-04-10 18:54 | Infectious Diseases Prog Note ---
Assessment/Plan Assessment/Plan A: The patient is a 60-year-old female with Fever Sepsis aspiration pneumonia Probable UTI UCx : : Staph A Flu neg Respiratory distress, CVA. SP PEG placement. History of anoxic brain damage. History of paraplegia. Seizure disorder. anemia. History of myocardial infarction. Hyperlipidemia. Hypertension. COPD. GERD DM Depression PLAN: Cont IV cefepime and IV vancomycin d# 3 Monitor cultures (blood, sputum, and urine). CBC. Monitor BMP. Monitor chest x-ray Subjective Constitutional: Denies: anorexia, chills, drenching sweats, fatigue, fever, no symptoms, other Allergies: Coded Allergies: NO KNOWN DRUG ALLERGIES (Unverified Allergy, Unknown, 06/01/14) Objective Vital Signs Last 24 Hour Vital Signs Date Time Temp Pulse Resp B/P Pulse Ox O2 Delivery O2 Flow Rate FiO2 04/10/16 17:07 100.6 04/10/16 16:00 101.1 105 22 111/85 100 04/10/16 16:00 40 04/10/16 16:00 102 04/10/16 12:00 40 04/10/16 12:00 98.1 100 24 110/66 96 Venturi Mask 40 04/10/16 08:45 Venturi Mask 8.0 40 04/10/16 08:43 97 Venturi Mask 5.0 40 04/10/16 08:00 40 04/10/16 08:00 102 04/10/16 08:00 99.9 94 20 131/61 96 Bi-pap 04/10/16 07:03 93 18 99 Facial 40 04/10/16 05:16 88 27 100 Facial 40 04/10/16 04:00 99.1 88 22 99/66 100 Bi-pap 40 04/10/16 04:00 40 04/10/16 03:32 94 04/10/16 02:51 95 18 100 Facial 40 04/10/16 01:02 96 20 100 Facial 40 04/10/16 00:00 98.9 98 18 100/71 100 Bi-pap 40 04/10/16 00:00 40 04/09/16 22:50 99 22 99 Facial 40 04/09/16 21:00 100 17 98 Facial 40 04/09/16 20:00 99.1 104 25 99/60 98 Bi-pap 40 04/09/16 20:00 35 04/09/16 20:00 102 04/09/16 19:15 101 21 97 Facial 40 Height (Feet): 5 Height (Inches): 2.00 Weight (Pounds): 160 HEENT: mucous membranes moist Respiratory/Chest: normal breath sounds Cardiovascular: regular rhythm Abdomen: no organomegaly Microbiology Date/Time Source Procedure Growth Status 04/08/16 20:15 Blood Blood Culture - Preliminary NO GROWTH AFTER 24 HOURS Resulted 04/08/16 20:10 Blood Blood Culture - Preliminary NO GROWTH AFTER 24 HOURS Resulted 04/09/16 00:17 Nasal Nares Influenza Types A,B Antigen (RENA) - Final Complete 04/08/16 23:29 Urine,Clean Catch Urine Culture - Preliminary Staphylococcus Aureus Resulted 04/09/16 12:00 Sacral Drainage Gram Stain - Final Resulted 04/09/16 12:00 Sacral Drainage Wound Culture Pending Resulted Laboratory Tests Test 04/10/16 04:30 04/10/16 10:00 04/10/16 11:45 White Blood Count 4.4 K/UL (4.8-10.8) L Red Blood Count 2.58 M/UL (4.20-5.40) L Hemoglobin 8.2 G/DL (12.0-16.0) L Hematocrit 25.7 % (37.0-47.0) L Mean Corpuscular Volume 100 FL (80-99) H Mean Corpuscular Hemoglobin 32.0 PG (27.0-31.0) H Mean Corpuscular Hemoglobin Concent 32.0 G/DL (32.0-36.0) Red Cell Distribution Width 16.7 % (11.6-14.8) H Platelet Count 120 K/UL (150-450) L Mean Platelet Volume 11.6 FL (6.5-10.1) H Neutrophils (%) (Auto) 78.2 % (45.0-75.0) H Lymphocytes (%) (Auto) 17.8 % (20.0-45.0) L Monocytes (%) (Auto) 3.5 % (1.0-10.0) Eosinophils (%) (Auto) 0.0 % (0.0-3.0) Basophils (%) (Auto) 0.5 % (0.0-2.0) Differential Total Cells Counted 100 Neutrophils % (Manual) 75 % (45-75) Lymphocytes % (Manual) 15 % (20-45) L Monocytes % (Manual) 4 % (1-10) Eosinophils % (Manual) 0 % (0-3) Basophils % (Manual) 0 % (0-2) Band Neutrophils 6 % (0-8) Platelet Estimate Decreased L Platelet Morphology Normal Polychromasia Occasional Hypochromasia 1+ Anisocytosis 1+ Macrocytosis 1+ Sodium Level 150 mEQ/L (135-145) H Potassium Level 3.7 mEQ/L (3.4-4.9) Chloride Level 111 mEQ/L (98-107) H Carbon Dioxide Level 28 mEQ/L (20-30) Anion Gap 11 (5-15) Blood Urea Nitrogen 25 mg/dL (7-23) H Creatinine 0.4 mg/dL (0.5-0.9) L Estimat Glomerular Filtration Rate > 60 mL/min (>60) Glucose Level 157 mg/dL (74-106) H Calcium Level 7.7 mg/dL (8.6-10.2) L Total Bilirubin 0.3 mg/dL (0.0-1.2) Aspartate Amino Transf (AST/SGOT) 17 U/L (5-40) Alanine Aminotransferase (ALT/SGPT) 11 U/L (3-33) Alkaline Phosphatase 35 U/L (35-104) Total Protein 5.0 g/dL (6.6-8.7) L Albumin 2.1 g/dL (3.5-5.2) L Globulin 2.9 g/dL Albumin/Globulin Ratio 0.7 (1.0-2.7) L Erythrocyte Sedimentation Rate 83 MM/HR (0-30) H Reticulocyte Count 1.2 % (0.0-2.0) Iron Level 36 ug/dL (37-145) L Total Iron Binding Capacity 138 ug/dL (250-400) L Percent Iron Saturation 26 % (15-50) Unsaturated Iron Binding 102 ug/dL (112-346) L Lactate Dehydrogenase 266 U/L (135-230) H Carcinoembryonic Antigen 8.8 ng/mL H Vitamin B12 Level 1091 pg/mL (211-946) H Folate Pending Prothrombin Time 11.5 SEC (9.30-11.50) Prothromb Time International Ratio 1.1 (0.9-1.1) Activated Partial Thromboplast Time 27 SEC (23-33) Current Medications Medications (Trade) Dose Ordered Sig/Kimo Route PRN Reason Start Time Stop Time Status Last Admin Dose Admin Acetaminophen (Tylenol) 650 mg Q4H PRN ORAL FEVER 04/08/16 23:00 05/08/16 22:59 04/10/16 16:08 Albuterol/ Ipratropium 3 ml 3 ml Q4H PRN HHN Shortness of Breath 04/08/16 23:00 04/13/16 22:59 Cefepime HCl/ Dextrose (Maxipime/D5W) 110 ml @ 220 mls/hr EVERY 12 HOURS IV 04/09/16 21:00 04/16/16 20:59 04/10/16 08:37 Clonidine HCl (Catapres) 0.1 mg Q6H PRN GT For High Blood Pressure 04/08/16 23:00 05/08/16 22:59 Dextrose (Dextrose 50%) STAT PRN IV Hypoglycemia 04/08/16 23:00 05/08/16 22:59 Divalproex Sodium (Depakote Sprinkles) 500 mg Q8HR GT 04/09/16 14:00 05/09/16 13:59 04/10/16 14:29 Heparin Sodium (Porcine) (Heparin 5000 units/ml) 5,000 units EVERY 12 HOURS SUBQ 04/09/16 09:00 05/09/16 08:59 04/09/16 22:44 Levetiracetam (Keppra) 1,500 mg Q12HR ORAL 04/09/16 09:00 05/09/16 08:59 04/10/16 08:33 Lorazepam (Ativan 2mg/ml 1ml) 2 mg Q2H PRN IV For Anxiety 04/08/16 23:00 04/15/16 22:59 Morphine Sulfate (Morphine Sulfate) 4 mg Q4H PRN IVP Severe Pain (Pain Scale 7-10) 04/08/16 23:00 04/15/16 22:59 Ondansetron HCl (Zofran) 4 mg Q6H PRN IVP Nausea & Vomiting 04/08/16 23:00 05/08/16 22:59 Polyethylene Glycol (Miralax) 17 gm DAILYPRN PRN ORAL Constipation 04/08/16 23:00 05/08/16 22:59 Sodium Chloride 1,000 ml @ 50 mls/hr Q20H IV 04/09/16 16:00 05/09/16 15:59 04/10/16 14:32 Vancomycin HCl 1 ea 1 ea DAILY PRN MISC . 04/09/16 12:30 05/09/16 12:29 Vancomycin HCl/ Dextrose (Vancomycin/D5W) 325 ml @ 162.5 mls/ hr Q24H IVPB 04/09/16 18:00 04/14/16 17:59 04/09/16 17:41 DEIDRA RAMOS M.D. Apr 10, 2016 18:54
[2016-04-10 20:00] VITALS: BP 114/79
[2016-04-11] VITALS: BP 111/68
[2016-04-11 04:00] VITALS: BP 121/71
[2016-04-11 06:25] LABS: MEAN CORPUSCULAR HEMOGLOBIN 31.9 PG (27.0-31.0); MEAN CORPUSCULAR HGB CONC 32.2 G/DL (32.0-36.0); MEAN CORPUSCULAR VOLUME 99 FL (80-99); MEAN PLATELET VOLUME 10.6 FL (6.5-10.1); PLATELET COUNT 113 K/UL (150-450); RED BLOOD COUNT 2.49 M/UL (4.20-5.40); WHITE BLOOD COUNT 2.6 K/UL (4.8-10.8)
[2016-04-11 06:46] LABS: ALANINE AMINOTRANSFERASE 12 U/L (3-33); ALBUMIN/GLOBULIN RATIO 0.6 (1.0-2.7); ANION GAP 8 (5-15); ASPARTATE AMINO TRANSFERASE 22 U/L (5-40); CALCIUM 7.6 mg/dL (8.6-10.2); CARBON DIOXIDE 28 mEQ/L (20-30); CHLORIDE 112 mEQ/L (98-107); CREATININE 0.3 mg/dL (0.5-0.9); GLOMERULAR FILTRATION RATE > 60 mL/min (>60); HEMOLYSIS 8; POTASSIUM 3.7 mEQ/L (3.4-4.9); SODIUM 148 mEQ/L (135-145); TOTAL PROTEIN 4.9 g/dL (6.6-8.7)
[2016-04-11] MEDS: Depakote 125mg Sprinkles GT SCH ×2 (06:46→13:10)
[2016-04-11 07:35] LABS: BAND NEUTROPHILS % (MANUAL) 1 % (0-8); BASOPHILS % (MANUAL) 0 % (0-2); EOSINOPHILS % (MANUAL) 0 % (0-3); LYMPHOCYTES % (MANUAL) 29 % (20-45); NEUTROPHILS % (MANUAL) 64 % (45-75); PLATELET ESTIMATE DECREASED; PLATELET MORPHOLOGY NORMAL; TOTAL CELLS COUNTED 100
[2016-04-11 07:37] LABS: ANISOCYTOSIS 1+; MACROCYTES 1+
[2016-04-11 08:00] VITALS: BP 112/66
[2016-04-11] MEDS: Cefepime HCl 2 GM in D5W 110 ML IV SCH ×2 (08:17→20:07)
[2016-04-11] MEDS: Heparin 5000 units/ml inj SUBQ SCH ×2 (08:17→20:59)
--- NOTE | 2016-04-11 11:32 | Infectious Diseases Prog Note ---
Assessment/Plan Assessment/Plan A: The patient is a 60-year-old female with Fever improving Sepsis, SP aspiration pneumonia Probable UTI UCx : : MRSA Flu neg Wnd cx :GNR ( Colonizer ) Respiratory distress, CVA. SP PEG placement. History of anoxic brain damage. History of paraplegia. Seizure disorder. anemia. History of myocardial infarction. Hyperlipidemia. Hypertension. COPD. GERD DM Depression PLAN: Cont IV cefepime and IV vancomycin d# 4 Monitor cultures (blood, sputum). CBC Monitor BMP. Monitor chest x-ray Subjective Constitutional: Reports: fever Allergies: Coded Allergies: NO KNOWN DRUG ALLERGIES (Unverified Allergy, Unknown, 06/01/14) Objective Vital Signs Last 24 Hour Vital Signs Date Time Temp Pulse Resp B/P Pulse Ox O2 Delivery O2 Flow Rate FiO2 04/11/16 08:00 40 04/11/16 08:00 97 04/11/16 08:00 97.7 93 18 112/66 100 Venturi Mask 40 04/11/16 07:40 Venturi Mask 8.0 40 04/11/16 07:40 100 Venturi Mask 8.0 40 04/11/16 04:00 98.8 97 20 121/71 100 04/11/16 04:00 40 04/11/16 03:49 97 04/11/16 01:25 98.8 04/11/16 00:00 40 04/11/16 00:00 100.6 97 24 111/68 100 04/10/16 23:55 97 04/10/16 22:34 100.2 04/10/16 20:00 97 04/10/16 20:00 40 04/10/16 20:00 101.1 99 20 114/79 100 04/10/16 19:30 Venturi Mask 8.0 40 04/10/16 19:30 98 Venturi Mask 8.0 40 04/10/16 16:00 101.1 105 22 111/85 100 04/10/16 16:00 40 04/10/16 16:00 102 04/10/16 12:00 40 04/10/16 12:00 98.1 100 24 110/66 96 Venturi Mask 40 Height (Feet): 5 Height (Inches): 2.00 Weight (Pounds): 160 HEENT: anicteric Respiratory/Chest: no accessory muscle use Cardiovascular: regular rhythm Abdomen: no organomegaly Microbiology Date/Time Source Procedure Growth Status 04/08/16 20:15 Blood Blood Culture - Preliminary NO GROWTH AFTER 48 HOURS Resulted 04/08/16 20:10 Blood Blood Culture - Preliminary NO GROWTH AFTER 48 HOURS Resulted 04/09/16 00:17 Nasal Nares Influenza Types A,B Antigen (RENA) - Final Complete 04/08/16 23:29 Urine,Clean Catch Urine Culture - Final Staphylococcus Aureus - Mrsa Complete 04/09/16 12:00 Sacral Drainage Gram Stain - Final Resulted 04/09/16 12:00 Wound Culture - Preliminary Gram Negative Bacillus 1 Resulted Laboratory Tests Test 04/10/16 11:45 04/11/16 05:00 Prothrombin Time 11.5 SEC (9.30-11.50) Prothromb Time International Ratio 1.1 (0.9-1.1) Activated Partial Thromboplast Time 27 SEC (23-33) White Blood Count 2.6 K/UL (4.8-10.8) L Red Blood Count 2.49 M/UL (4.20-5.40) L Hemoglobin 8.0 G/DL (12.0-16.0) L Hematocrit 24.7 % (37.0-47.0) L Mean Corpuscular Volume 99 FL (80-99) Mean Corpuscular Hemoglobin 31.9 PG (27.0-31.0) H Mean Corpuscular Hemoglobin Concent 32.2 G/DL (32.0-36.0) Red Cell Distribution Width 17.0 % (11.6-14.8) H Platelet Count 113 K/UL (150-450) L Mean Platelet Volume 10.6 FL (6.5-10.1) H Neutrophils (%) (Auto) % (45.0-75.0) Lymphocytes (%) (Auto) % (20.0-45.0) Monocytes (%) (Auto) % (1.0-10.0) Eosinophils (%) (Auto) % (0.0-3.0) Basophils (%) (Auto) % (0.0-2.0) Differential Total Cells Counted 100 Neutrophils % (Manual) 64 % (45-75) Lymphocytes % (Manual) 29 % (20-45) Monocytes % (Manual) 6 % (1-10) Eosinophils % (Manual) 0 % (0-3) Basophils % (Manual) 0 % (0-2) Band Neutrophils 1 % (0-8) Platelet Estimate Decreased L Platelet Morphology Normal Anisocytosis 1+ Macrocytosis 1+ Sodium Level 148 mEQ/L (135-145) H Potassium Level 3.7 mEQ/L (3.4-4.9) Chloride Level 112 mEQ/L (98-107) H Carbon Dioxide Level 28 mEQ/L (20-30) Anion Gap 8 (5-15) Blood Urea Nitrogen 16 mg/dL (7-23) Creatinine 0.3 mg/dL (0.5-0.9) L Estimat Glomerular Filtration Rate > 60 mL/min (>60) Glucose Level 127 mg/dL (74-106) H Calcium Level 7.6 mg/dL (8.6-10.2) L Total Bilirubin 0.3 mg/dL (0.0-1.2) Aspartate Amino Transf (AST/SGOT) 22 U/L (5-40) Alanine Aminotransferase (ALT/SGPT) 12 U/L (3-33) Alkaline Phosphatase 37 U/L (35-104) Total Protein 4.9 g/dL (6.6-8.7) L Albumin 2.0 g/dL (3.5-5.2) L Globulin 2.9 g/dL Albumin/Globulin Ratio 0.6 (1.0-2.7) L Current Medications Medications (Trade) Dose Ordered Sig/Kimo Route PRN Reason Start Time Stop Time Status Last Admin Dose Admin Acetaminophen (Tylenol) 650 mg Q4H PRN ORAL FEVER 04/08/16 23:00 05/08/16 22:59 04/11/16 00:26 Albuterol/ Ipratropium 3 ml 3 ml Q4H PRN HHN Shortness of Breath 04/08/16 23:00 04/13/16 22:59 Cefepime HCl/ Dextrose (Maxipime/D5W) 110 ml @ 220 mls/hr EVERY 12 HOURS IV 04/09/16 21:00 04/16/16 20:59 04/10/16 08:37 Clonidine HCl (Catapres) 0.1 mg Q6H PRN GT For High Blood Pressure 04/08/16 23:00 05/08/16 22:59 Dextrose (Dextrose 50%) STAT PRN IV Hypoglycemia 04/08/16 23:00 05/08/16 22:59 Divalproex Sodium (Depakote Sprinkles) 500 mg Q8HR GT 04/09/16 14:00 05/09/16 13:59 04/11/16 06:46 Heparin Sodium (Porcine) (Heparin 5000 units/ml) 5,000 units EVERY 12 HOURS SUBQ 04/09/16 09:00 05/09/16 08:59 04/09/16 22:44 Heparin Sodium (Porcine) 1000 unit 1,000 unit ONCE ONCE INJ 04/11/16 12:00 04/11/16 12:01 Levetiracetam (Keppra) 1,500 mg Q12HR ORAL 04/09/16 09:00 05/09/16 08:59 04/11/16 08:17 Lidocaine/ Epinephrine (Xylocaine 1%/ Epi MPF) 20 ml ONCE ONCE INJ 04/11/16 12:00 04/11/16 12:01 Lorazepam (Ativan 2mg/ml 1ml) 2 mg Q2H PRN IV For Anxiety 04/08/16 23:00 04/15/16 22:59 Morphine Sulfate (Morphine Sulfate) 4 mg Q4H PRN IVP Severe Pain (Pain Scale 7-10) 04/08/16 23:00 04/15/16 22:59 Ondansetron HCl (Zofran) 4 mg Q6H PRN IVP Nausea & Vomiting 04/08/16 23:00 05/08/16 22:59 Polyethylene Glycol (Miralax) 17 gm DAILYPRN PRN ORAL Constipation 04/08/16 23:00 05/08/16 22:59 Sodium Chloride 1,000 ml @ 50 mls/hr Q20H IV 04/09/16 16:00 05/09/16 15:59 04/10/16 14:32 Sodium Chloride (Sodium Chloride 1000ml bag) 1,000 ml @ 999 mls/hr Q1H1M ONCE IV 04/11/16 12:00 04/11/16 13:00 Vancomycin HCl 1 ea 1 ea DAILY PRN MISC . 04/09/16 12:30 05/09/16 12:29 Vancomycin HCl/ Dextrose (Vancomycin/D5W) 325 ml @ 162.5 mls/ hr Q24H IVPB 04/09/16 18:00 04/14/16 17:59 04/09/16 17:41 DEIDRA RAMOS M.D. Apr 11, 2016 11:32
[2016-04-11 12:00] VITALS: BP 122/72
[2016-04-11] MEDS ORDERED: Heparin Sod 1000 units/ml 10ml INJ ONE (12:00)
[2016-04-11] MEDS ORDERED: Lidocaine 1% 10mg/ml/Epi 0.005mg/ml 30ml vial INJ ONE (12:00)
--- NOTE | 2016-04-11 12:28 | Diagnostic Imaging Report ---
Indication: DYSPNEA Technique: One view of the chest Comparison: And 3216 Findings: Interim removal of previously demonstrated central venous catheter. Lungs and pleural spaces remain clear, with low lung volumes. Heart size is borderline enlarged. Impression: Interim right central venous catheter removal. Otherwise little bladder changer one day
--- NOTE | 2016-04-11 13:48 | GI Initial Consult Note ---
History of Present Illness General Date patient seen: Apr 11, 2016 Time patient seen: 11:00 Reason for Hospitalization: Fever Referring physician: BISHOP SIMMONS Reason for Consultation: ANEMIA Present Illness HPI Patient is a 60-year-old female [facility] after increased fever and desaturation. Patient prior history of chronic debilitation do to heart attack as well as the CVA. The patient is bedridden and nonverbal at baseline. Patient was noted to have had increased fever to 103. The patient was sent in the hospital for further evaluation. The patient was noted to be DO NOT RESUSCITATE. The patient's paperwork states that the patient is okay for IV treatment as well as antibiotics. GI CONSULT: HPI as noted above. GI consulted for anemia. Pt seen on floor, unable to obtain any history. Pt presents today with pancytopenia, hypoalbuminemia and elevated CEA. Iron panel reviewed and within normal limits. The patient is a 59-year-old female with past medical history of CVA, seizure disorder, cardiac disease, COPD, asthma, PEG feeding tube, aspiration, diabetes , and depression. Home Meds Reported Medications Insulin Aspart (NOVOLOG) 100 Unit/1 Ml Cartridge, 100 UNIT SQ Q6HR 02/25/16 Collagenase Clostridium Hist. (Santyl) 30 Gm Oint...g., 1 APPLIC TP DAILY, #15 GM 0 Refills 02/25/16 Unable to Obtain Medications (UNABLE TO OBTAIN MEDS) 1 Ea Ea 02/23/16 Zolpidem Tartrate* (AMBIEN*) 5 Mg Tablet, 5 MG ORAL BEDTIME Y for Insomnia, TAB 01/04/16 Zinc Sulfate (ZINC SULFATE) 220 Mg Tablet, 220 MG GT DAILY, #30 TAB 0 Refills 01/04/16 Polyethylene Glycol 3350* (MIRALAX*) 17 Gm Powd.pack, 17 GM ORAL HS Y for Constipation, PACKET 01/04/16 Ondansetron* (ZOFRAN*) 4 Mg/2 Ml Vial, 4 MG IV Q6H Y for Nausea & Vomiting, VIAL 01/04/16 Lorazepam* (ATIVAN*) 2 Mg/1 Ml Vial, 2 MG IV Q1HR Y for seizure, VIAL 01/04/16 Levetiracetam (KEPPRA) 1,000 Mg Tablet, 1500 MG ORAL Q12HR, #30 TAB 0 Refills 01/04/16 Heparin Sod (Porcine) (HEPARIN SODIUM*) 5 000/1 Ml Vial, 5000 UNITS SUBQ EVERY 12 HOURS, VIAL 01/04/16 Divalproex Sodium (DEPAKOTE SPRINKLE) 125 Mg Cap.sprink, 500 MG GT Q8HR, CAP 01/04/16 Acetaminophen (Acetaminophen) 500 Mg Tablet, 650 MG PO Q4HR, TAB 10/03/15 Clonidine Hcl* (CATAPRES*) 0.1 Mg Tablet, 0.1 MG GT EVERY 6 HOURS Y for For High Blood Pressure, TAB 06/02/14 Carvedilol (Coreg) 25 Mg Tab, 25 MG GT EVERY 12 HOURS, TAB 06/02/14 Med list reviewed/reconciled: Yes Allergies: Coded Allergies: NO KNOWN DRUG ALLERGIES (Unverified Allergy, Unknown, 06/01/14) Patient History Limited by: medical condition History Provided By: Medical Record [facility] Narrative Past Medical History: No History, Except For Hx Cardiac Problems: Yes Hx Hypertension: Yes Hx Pacemaker: No Hx COPD: Yes Hx Diabetes: Yes Hx Cancer: No Hx Gastrointestinal Problems: Yes Hx Dialysis: No Hx Neurological Problems: Yes - Paraplegia Hx Seizures: Yes Hx Epilepsy: Yes Hx Tremors: Yes Hx Dysphasia: Yes Hx Weakness: Yes Review of Systems All Other Systems: negative except mentioned in HPI Physical Exam Vital Signs Date Time Temp Pulse Resp B/P Pulse Ox O2 Delivery O2 Flow Rate FiO2 04/08/16 19:38 108 20 91/60 100 Non-Rebreather 15.0 04/08/16 19:57 103.0 04/08/16 20:57 35 Sp02 EP Interpretation: reviewed Labs Laboratory Tests Test 04/11/16 05:00 White Blood Count 2.6 K/UL (4.8-10.8) L Red Blood Count 2.49 M/UL (4.20-5.40) L Hemoglobin 8.0 G/DL (12.0-16.0) L Hematocrit 24.7 % (37.0-47.0) L Mean Corpuscular Volume 99 FL (80-99) Mean Corpuscular Hemoglobin 31.9 PG (27.0-31.0) H Mean Corpuscular Hemoglobin Concent 32.2 G/DL (32.0-36.0) Red Cell Distribution Width 17.0 % (11.6-14.8) H Platelet Count 113 K/UL (150-450) L Mean Platelet Volume 10.6 FL (6.5-10.1) H Neutrophils (%) (Auto) % (45.0-75.0) Lymphocytes (%) (Auto) % (20.0-45.0) Monocytes (%) (Auto) % (1.0-10.0) Eosinophils (%) (Auto) % (0.0-3.0) Basophils (%) (Auto) % (0.0-2.0) Differential Total Cells Counted 100 Neutrophils % (Manual) 64 % (45-75) Lymphocytes % (Manual) 29 % (20-45) Monocytes % (Manual) 6 % (1-10) Eosinophils % (Manual) 0 % (0-3) Basophils % (Manual) 0 % (0-2) Band Neutrophils 1 % (0-8) Platelet Estimate Decreased L Platelet Morphology Normal Anisocytosis 1+ Macrocytosis 1+ Sodium Level 148 mEQ/L (135-145) H Potassium Level 3.7 mEQ/L (3.4-4.9) Chloride Level 112 mEQ/L (98-107) H Carbon Dioxide Level 28 mEQ/L (20-30) Anion Gap 8 (5-15) Blood Urea Nitrogen 16 mg/dL (7-23) Creatinine 0.3 mg/dL (0.5-0.9) L Estimat Glomerular Filtration Rate > 60 mL/min (>60) Glucose Level 127 mg/dL (74-106) H Calcium Level 7.6 mg/dL (8.6-10.2) L Total Bilirubin 0.3 mg/dL (0.0-1.2) Aspartate Amino Transf (AST/SGOT) 22 U/L (5-40) Alanine Aminotransferase (ALT/SGPT) 12 U/L (3-33) Alkaline Phosphatase 37 U/L (35-104) Total Protein 4.9 g/dL (6.6-8.7) L Albumin 2.0 g/dL (3.5-5.2) L Globulin 2.9 g/dL Albumin/Globulin Ratio 0.6 (1.0-2.7) L General Appearance: no apparent distress Head: normocephalic Neck: supple Respiratory: other - non rebreather Cardiovascular: normal rate Gastrointestinal: normal inspection, non tender, soft, gt - c/d/i Rectal: deferred Genitourinary: no CVA tenderness Skin: normal color, no rash, warm/dry Lymphatic: normal inspection, no adenopathy Current Medications Current Medications Medications (Trade) Dose Ordered Sig/Kimo Route PRN Reason Start Time Stop Time Status Last Admin Dose Admin Acetaminophen (Tylenol) 650 mg Q4H PRN ORAL FEVER 04/08/16 23:00 05/08/16 22:59 04/11/16 00:26 Albuterol/ Ipratropium 3 ml 3 ml Q4H PRN HHN Shortness of Breath 04/08/16 23:00 04/13/16 22:59 Cefepime HCl/ Dextrose (Maxipime/D5W) 110 ml @ 220 mls/hr EVERY 12 HOURS IV 04/09/16 21:00 04/16/16 20:59 04/10/16 08:37 Clonidine HCl (Catapres) 0.1 mg Q6H PRN GT For High Blood Pressure 04/08/16 23:00 05/08/16 22:59 Dextrose (Dextrose 50%) STAT PRN IV Hypoglycemia 04/08/16 23:00 05/08/16 22:59 Divalproex Sodium (Depakote Sprinkles) 500 mg Q8HR GT 04/09/16 14:00 05/09/16 13:59 04/11/16 13:10 Heparin Sodium (Porcine) (Heparin 5000 units/ml) 5,000 units EVERY 12 HOURS SUBQ 04/09/16 09:00 05/09/16 08:59 04/09/16 22:44 Levetiracetam (Keppra) 1,500 mg Q12HR ORAL 04/09/16 09:00 05/09/16 08:59 04/11/16 08:17 Lidocaine HCl (Xylocaine 1% 30ml) 30 ml ONCE ONCE INJ 04/11/16 13:45 04/11/16 13:46 UNV Lorazepam (Ativan 2mg/ml 1ml) 2 mg Q2H PRN IV For Anxiety 04/08/16 23:00 04/15/16 22:59 Morphine Sulfate (Morphine Sulfate) 4 mg Q4H PRN IVP Severe Pain (Pain Scale 7-10) 04/08/16 23:00 2/4/17 22:59 Ondansetron HCl (Zofran) 4 mg Q6H PRN IVP Nausea & Vomiting 04/08/16 23:00 05/08/16 22:59 Polyethylene Glycol (Miralax) 17 gm DAILYPRN PRN ORAL Constipation 04/08/16 23:00 05/08/16 22:59 Sodium Chloride 1,000 ml @ 50 mls/hr Q20H IV 04/09/16 16:00 05/09/16 15:59 04/10/16 14:32 Vancomycin HCl 1 ea 1 ea DAILY PRN MISC . 04/09/16 12:30 05/09/16 12:29 Vancomycin HCl/ Dextrose (Vancomycin/D5W) 325 ml @ 162.5 mls/ hr Q24H IVPB 04/09/16 18:00 04/14/16 17:59 04/09/16 17:41 GI: Plan Problems: (1) G tube feedings (2) Pancytopenia (3) Anemia (4) Hypoalbuminemia (5) Dysphagia Plan elevated CEA >> 8.8 iron panel reviewed, unremarkable anemia work up ordered AP CT given pancytopenia OB stool uncollected monitor H&H, transfuse prn ppi dietary consult, start GTFs GT site care/prn fu labs Discussed with Dr. Blanca. Thank you for referring this patient, we will follow. Cora Negrete N.P. Apr 11, 2016 13:48
[2016-04-11] MEDS ORDERED: Lidocaine 1% Plain 30 ml INJ ONE (14:00)
--- NOTE | 2016-04-11 14:06 | Diagnostic Imaging Report ---
Indication: Dyspnea Comparison: 02/08/16 A single view chest radiograph was obtained. Findings: Platelike atelectasis demonstrated in the right middle lobe. Heart size is normal. Minimal left basal atelectasis also present. A right subclavian line is noted in good position with the tip in the right atrium. There is no pneumothorax. Bones are osteopenic. Impression: Subclavian Line in good position. Basilar atelectasis as described above
--- NOTE | 2016-04-11 14:19 | Diagnostic Imaging Report ---
APPROVED REPORT CPT Code: 06444 Present Symptoms Lower Extremity Pain: BILATERAL: Imaging reveals a patent deep venous system bilaterally. There is no evidence of thrombus within the femoral, popliteal or tibial segments. The greater saphenous veins are also within normal limits. Doppler indicates normal spontaneous flow within these segments.
[2016-04-11 16:00] VITALS: BP 99/66
[2016-04-11] MEDS: Vancomycin 1.5 GM in D5W 325 ML IVPB SCH (17:52)
[2016-04-11 19:54] VITALS: BP 100/72
[2016-04-11] MEDS ORDERED: LORazepam Inj 2mg/ml 1ml IV PRN (23:00)
[2016-04-11] MEDS ORDERED: Morphine Sulfate 4mg/ml Inj IVP PRN (23:00)
[2016-04-11] MEDS ORDERED: Miralax 17gm pkt ORAL PRN (23:00)
[2016-04-11] MEDS ORDERED: DuoNeb 0.5-3(2.5)mg/3ml neb HHN PRN (23:00)
[2016-04-12] VITALS: BP 100/62
[2016-04-12 04:00] VITALS: BP 107/66
[2016-04-12] MEDS: Depakote 125mg Sprinkles GT SCH ×3 (05:50→21:47)
[2016-04-12 08:15] VITALS: BP 114/93
[2016-04-12] MEDS: Cefepime HCl 2 GM in D5W 110 ML IV SCH ×2 (08:43→21:50)
[2016-04-12] MEDS: Pantoprazole Inj IVP SCH (08:43)
[2016-04-12] MEDS: Heparin 5000 units/ml inj SUBQ SCH ×2 (08:53→21:00)
[2016-04-12] MEDS ORDERED: Pantoprazole Inj IVP SCH (09:00)
--- NOTE | 2016-04-12 09:22 | Infectious Diseases Prog Note ---
Assessment/Plan Assessment/Plan A: The patient is a 60-year-old female with Fever improving Sepsis, SP aspiration pneumonia Probable UTI UCx : : MRSA Flu neg Wnd cx :GNR ( Colonizer ) Respiratory distress, CVA. SP PEG placement. History of anoxic brain damage. History of paraplegia. Seizure disorder. anemia. History of myocardial infarction. Hyperlipidemia. Hypertension. COPD. GERD DM Depression PLAN: Cont IV cefepime and IV vancomycin d# 5 / 7 Monitor cultures (blood, sputum). CBC Monitor BMP. Monitor chest x-ray Subjective Constitutional: Denies: anorexia, chills, drenching sweats, fatigue, fever, no symptoms, other Allergies: Coded Allergies: NO KNOWN DRUG ALLERGIES (Unverified Allergy, Unknown, 06/01/14) Objective Vital Signs Last 24 Hour Vital Signs Date Time Temp Pulse Resp B/P Pulse Ox O2 Delivery O2 Flow Rate FiO2 04/12/16 08:15 97.7 93 20 114/93 97 04/12/16 07:50 100 Venturi Mask 8.0 40 04/12/16 07:50 Venturi Mask 8.0 40 04/12/16 04:00 98.0 89 20 107/66 98 Simple Mask 5.0 04/12/16 00:00 98.1 96 20 100/62 98 Room Air 04/11/16 20:00 40 04/11/16 20:00 98 04/11/16 19:54 97.8 91 18 100/72 100 Mechanical Ventilator 04/11/16 19:23 Venturi Mask 8.0 40 04/11/16 19:23 100 Venturi Mask 8.0 40 04/11/16 16:00 98.1 97 19 99/66 100 Venturi Mask 40 04/11/16 16:00 94 04/11/16 16:00 40 04/11/16 12:00 90 04/11/16 12:00 40 04/11/16 12:00 98.2 93 18 122/72 98 Venturi Mask 40 Height (Feet): 5 Height (Inches): 2.00 Weight (Pounds): 160 HEENT: atraumatic Respiratory/Chest: normal breath sounds Cardiovascular: normal rate Abdomen: soft, non tender, no organomegaly Microbiology Date/Time Source Procedure Growth Status 04/09/16 12:00 Nasal Nares MRSA Culture - Final NO METHICILLIN RESISTANT STAPH AUREUS... Complete 04/09/16 12:00 Rectum VRE Culture - Final Enterococcus Faecalis - Vre Complete 04/09/16 12:00 Sacral Drainage Gram Stain - Final Resulted 04/09/16 12:00 Wound Culture - Preliminary Gram Negative Bacillus 1 Resulted Laboratory Tests Test 04/11/16 16:50 Vancomycin Level Trough 2.9 ug/mL (5.0-12.0) L Current Medications Medications (Trade) Dose Ordered Sig/Kimo Route PRN Reason Start Time Stop Time Status Last Admin Dose Admin Acetaminophen (Tylenol) 650 mg Q4H PRN ORAL FEVER 04/11/16 23:00 05/11/16 22:59 Albuterol/ Ipratropium (DuoNeb 0.5-3(2.5)mg/3ml) 3 ml Q4H PRN HHN Shortness of Breath 04/11/16 23:00 04/16/16 22:59 Cefepime HCl 2 gm/ Dextrose 110 ml @ 220 mls/hr EVERY 12 HOURS IV 04/12/16 09:00 04/19/16 08:59 04/12/16 08:43 Clonidine HCl (Catapres) 0.1 mg Q6H PRN GT For High Blood Pressure 04/11/16 23:00 05/11/16 22:59 Dextrose (Dextrose 50%) STAT PRN IV Hypoglycemia 04/11/16 23:00 05/11/16 22:59 Divalproex Sodium (Depakote Sprinkles) 500 mg Q8HR GT 04/12/16 06:00 05/12/16 05:59 04/12/16 05:50 Heparin Sodium (Porcine) (Heparin 5000 units/ml) 5,000 units EVERY 12 HOURS SUBQ 04/12/16 09:00 05/12/16 08:59 Levetiracetam (Keppra) 1,500 mg Q12HR ORAL 04/12/16 09:00 05/12/16 08:59 04/12/16 08:43 Lorazepam (Ativan 2mg/ml 1ml) 2 mg Q2H PRN IV For Anxiety 04/11/16 23:00 04/18/16 22:59 Morphine Sulfate (Morphine Sulfate) 4 mg Q4H PRN IVP Severe Pain (Pain Scale 7-10) 04/11/16 23:00 04/18/16 22:59 Ondansetron HCl (Zofran) 4 mg Q6H PRN IVP Nausea & Vomiting 04/11/16 23:00 05/11/16 22:59 Pantoprazole (Protonix) 40 mg DAILY IVP 04/12/16 09:00 05/12/16 08:59 04/12/16 08:43 Polyethylene Glycol (Miralax) 17 gm DAILYPRN PRN ORAL Constipation 04/11/16 23:00 05/11/16 22:59 Sodium Chloride 1,000 ml @ 50 mls/hr Q20H IV 04/11/16 23:00 05/11/16 22:59 Vancomycin HCl (Vanco rx to dose) 1 ea DAILY PRN MISC . 04/12/16 09:00 05/12/16 08:59 Vancomycin HCl/ Dextrose (Vancomycin/D5W) 325 ml @ 162.5 mls/ hr Q24H IVPB 04/12/16 18:00 04/17/16 17:59 DEIDRA RAMOS M.D. Apr 12, 2016 09:22
--- NOTE | 2016-04-12 09:35 | Diagnostic Imaging Report ---
Indication: DYSPNEA Technique: One view of the chest Comparison: 04/08/2016 Findings: There is decreased but persistent atelectasis at the right lung base. There is minimal left basilar atelectasis. Upper lung martins are clear. Pleural spaces are clear. The heart size is normal. Central venous catheter is again demonstrated Impression: Improving bibasilar atelectasis. Otherwise little change advisor 2 days
[2016-04-12 11:36] LABS: MEAN CORPUSCULAR HEMOGLOBIN 31.4 PG (27.0-31.0); MEAN CORPUSCULAR HGB CONC 32.9 G/DL (32.0-36.0); MEAN CORPUSCULAR VOLUME 95 FL (80-99); MEAN PLATELET VOLUME 10.4 FL (6.5-10.1); PLATELET COUNT 101 K/UL (150-450); RED BLOOD COUNT 3.05 M/UL (4.20-5.40); RED CELL DISTRIBUTION WIDTH 16.2 % (11.6-14.8); WHITE BLOOD COUNT 2.5 K/UL (4.8-10.8)
--- NOTE | 2016-04-12 11:47 | GI Progress Note ---
Assessment/Plan Problems: (1) G tube feedings ICD Codes: Z93.1 - Gastrostomy status SNOMED: 906050797, 625316280 (2) Hypoalbuminemia ICD Codes: E88.09 - Other disorders of plasma-protein metabolism, not elsewhere classified SNOMED: 534847041 (3) Pancytopenia ICD Codes: D61.818 - Other pancytopenia SNOMED: 997248211 (4) Dysphagia ICD Codes: R13.10 - Dysphagia, unspecified SNOMED: 27294379, 568607692 (5) Anemia ICD Codes: D64.9 - Anemia SNOMED: 384425739 Status: stable, unchanged Status Narrative Discussed with Dr. Blanca. Assessment/Plan elevated CEA >> 8.8 iron panel reviewed, unremarkable consider EGD/colonoscopy Sunday if still inpatient fu AP CT OB stool uncollected monitor H&H, transfuse prn ppi dietary consult, start GTFs GT site care/prn fu labs Subjective Subjective limited Objective Last 24 Hour Vital Signs Date Time Temp Pulse Resp B/P Pulse Ox O2 Delivery O2 Flow Rate FiO2 04/12/16 08:15 97.7 93 20 114/93 97 04/12/16 07:50 100 Venturi Mask 8.0 40 04/12/16 07:50 Venturi Mask 8.0 40 04/12/16 04:00 98.0 89 20 107/66 98 Simple Mask 5.0 04/12/16 00:00 98.1 96 20 100/62 98 Room Air 04/11/16 20:00 40 04/11/16 20:00 98 04/11/16 19:54 97.8 91 18 100/72 100 Mechanical Ventilator 04/11/16 19:23 Venturi Mask 8.0 40 04/11/16 19:23 100 Venturi Mask 8.0 40 04/11/16 16:00 98.1 97 19 99/66 100 Venturi Mask 40 04/11/16 16:00 94 04/11/16 16:00 40 04/11/16 12:00 90 04/11/16 12:00 40 04/11/16 12:00 98.2 93 18 122/72 98 Venturi Mask 40 Intake and Output 04/11/16 04/12/16 19:00 07:00 Intake Total 162.5 ml 322.5 ml Output Total 250 ml 900 ml Balance -87.5 ml -577.5 ml IV Total 162.5 ml 272.5 ml Other 50 ml Output Urine Total 250 ml 900 ml # Bowel Movements 1 Laboratory Tests Test 04/11/16 16:50 04/12/16 11:25 Vancomycin Level Trough 2.9 ug/mL (5.0-12.0) L White Blood Count Pending Red Blood Count Pending Hemoglobin Pending Hematocrit Pending Mean Corpuscular Volume Pending Mean Corpuscular Hemoglobin Pending Mean Corpuscular Hemoglobin Concent Pending Red Cell Distribution Width Pending Platelet Count Pending Mean Platelet Volume Pending Neutrophils (%) (Auto) Pending Lymphocytes (%) (Auto) Pending Monocytes (%) (Auto) Pending Eosinophils (%) (Auto) Pending Basophils (%) (Auto) Pending Prothrombin Time Pending Prothromb Time International Ratio Pending Activated Partial Thromboplast Time Pending Sodium Level Pending Potassium Level Pending Chloride Level Pending Carbon Dioxide Level Pending Blood Urea Nitrogen Pending Creatinine Pending Estimat Glomerular Filtration Rate Pending Glucose Level Pending Calcium Level Pending Phosphorus Level Pending Magnesium Level Pending Total Bilirubin Pending Aspartate Amino Transf (AST/SGOT) Pending Alanine Aminotransferase (ALT/SGPT) Pending Alkaline Phosphatase Pending Total Protein Pending Albumin Pending Globulin Pending Height (Feet): 5 Height (Inches): 2.00 Weight (Pounds): 160 General Appearance: no apparent distress Cardiovascular: normal rate Respiratory/Chest: no respiratory distress Abdominal Exam: site - c/d/i Cora Negrete N.P. Apr 12, 2016 11:47
[2016-04-12 11:53] LABS: INR 1.3 (0.9-1.1); PROTHROMBIN TIME 13.6 SEC (9.30-11.50)
[2016-04-12 11:59] VITALS: BP 104/76
[2016-04-12 12:01] LABS: ALANINE AMINOTRANSFERASE 21 U/L (3-33); ALBUMIN/GLOBULIN RATIO 0.8 (1.0-2.7); ANION GAP 8 (5-15); ASPARTATE AMINO TRANSFERASE 37 U/L (5-40); CALCIUM 7.5 mg/dL (8.6-10.2); CARBON DIOXIDE 29 mEQ/L (20-30); CHLORIDE 106 mEQ/L (98-107); CREATININE 0.2 mg/dL (0.5-0.9); GLOMERULAR FILTRATION RATE > 60 mL/min (>60); HEMOLYSIS 1; POTASSIUM 3.3 mEQ/L (3.4-4.9); SODIUM 143 mEQ/L (135-145); TOTAL PROTEIN 4.5 g/dL (6.6-8.7)
[2016-04-12 12:28] LABS: LYMPHOCYTES % (MANUAL) 24 % (20-45); NEUTROPHILS % (MANUAL) 73 % (45-75); TOTAL CELLS COUNTED 100
[2016-04-12 12:29] LABS: ANISOCYTOSIS 1+; BAND NEUTROPHILS % (MANUAL) 0 % (0-8); BASOPHILS % (MANUAL) 0 % (0-2); EOSINOPHILS % (MANUAL) 0 % (0-3); PLATELET ESTIMATE DECREASED; PLATELET MORPHOLOGY NORMAL
[2016-04-12 16:00] VITALS: BP 132/69
--- NOTE | 2016-04-12 16:24 | Diagnostic Imaging Report ---
Clinical Indication: Abdominal pain, improving fever, sepsis Technique: Patient given oral contrast. IV administration nonionic contrast. Venous phase spiral acquisition obtained through the abdomen and pelvis. Multiplanar reconstructions were generated. Total dose length product mGycm. CTDIvol(s) mGy Comparison: Findings: The appendix is not clearly evident, but there are no findings to suggest acute appendicitis. No evidence of diverticulosis or diverticulitis. The descending and sigmoid colon are collapsed, making it impossible to exclude mural thickening. No small bowel distention or small bowel wall thickening. There is a gastrostomy in good position. The distal esophagus and stomach and duodenum are otherwise unremarkable. There is soft tissue edema of the bilateral flanks. There is consolidation of much of the visualized right lower lobe. There is a small right-sided pleural effusion. There is some dependent atelectasis and trace pleural fluid at the left lung base. The gallbladder is distended, but no stones or wall thickening. The liver, bile ducts, pancreas, spleen, adrenals, right kidney are unremarkable. Left kidney demonstrates minimal cortical scarring. No renal or ureteral calculi, hydronephrosis, hydroureter. No retroperitoneum or mesenteric mass or adenopathy. No pelvic mass or adenopathy. There is a Belle catheter within the bladder. Small amount of air within the bladder presumably relates to the Belle catheterization. Small calcification is seen within the uterine myometrium. There is an old healed fracture deformity of the left hip. There is extensive soft tissue thickening surrounding both hips, and extensive degenerative changes of both hips. There is some heterotopic ossification posterior to the right acetabulum. Impression: No definite acute abdominal process Chronic appearing left hip fracture deformity. Extensive soft tissue thickening surrounding both hip joints, with degenerative change. Probably all chronic but acute inflammatory process cannot be completely ruled out. Correlate with clinical findings Bilateral flank edema Consolidation of much of the visualized right lower lobe and tiny right-sided pleural effusion Left basilar pulmonary dependent atelectasis and trace pleural fluid The catheter within the bladder The CT scanner at [facility] is accredited by the [employer] and the scans are performed using protocols designed to limit radiation exposure to as low as reasonably achievable to attain images of sufficient resolution adequate for diagnostic evaluation.
--- NOTE | 2016-04-12 17:04 | Pulmonology Progress Note ---
Assessment/Plan Problems: (1) Septic shock (2) Acute respiratory failure (3) Anoxic encephalopathy (4) Decubitus ulcer of sacral area (5) Cerebral vascular disease (6) Seizure disorder Assessment/Plan off bipap improving afebrile dvt prophylaxis respiratory treatment Subjective ROS Limited/Unobtainable: No Interval Events: comfortable Allergies: Coded Allergies: NO KNOWN DRUG ALLERGIES (Unverified Allergy, Unknown, 06/01/14) Objective Last 24 Hour Vital Signs Date Time Temp Pulse Resp B/P Pulse Ox O2 Delivery O2 Flow Rate FiO2 04/12/16 11:59 98.4 77 18 104/76 99 10.0 04/12/16 08:15 97.7 93 20 114/93 97 04/12/16 07:50 100 Venturi Mask 8.0 40 04/12/16 07:50 Venturi Mask 8.0 40 04/12/16 04:00 98.0 89 20 107/66 98 Simple Mask 5.0 04/12/16 00:00 98.1 96 20 100/62 98 Room Air 04/11/16 20:00 40 04/11/16 20:00 98 04/11/16 19:54 97.8 91 18 100/72 100 Mechanical Ventilator 04/11/16 19:23 Venturi Mask 8.0 40 04/11/16 19:23 100 Venturi Mask 8.0 40 Intake and Output 04/11/16 04/12/16 19:00 07:00 Intake Total 162.5 ml 322.5 ml Output Total 250 ml 900 ml Balance -87.5 ml -577.5 ml IV Total 162.5 ml 272.5 ml Other 50 ml Output Urine Total 250 ml 900 ml # Bowel Movements 1 General Appearance: WD/WN HEENT: normocephalic, atraumatic Respiratory/Chest: chest wall non-tender, lungs clear Cardiovascular: normal peripheral pulses, normal rate, no JVD Abdomen: no organomegaly Genitourinary: normal external genitalia Skin: no lesions Laboratory Tests 04/12/16 11:25: White Blood Count 2.5L, Red Blood Count 3.05L, Hemoglobin 9.6L, Hematocrit 29.1L , Mean Corpuscular Volume 95, Mean Corpuscular Hemoglobin 31.4H, Mean Corpuscular Hemoglobin Concent 32.9, Red Cell Distribution Width 16.2H, Platelet Count 101L, Mean Platelet Volume 10.4H, Neutrophils (%) (Auto) , Lymphocytes (%) (Auto) , Monocytes (%) (Auto) , Eosinophils (%) (Auto) , Basophils (%) (Auto) , Differential Total Cells Counted 100, Neutrophils % ( Manual) 73, Lymphocytes % (Manual) 24, Monocytes % (Manual) 3, Eosinophils % ( Manual) 0, Basophils % (Manual) 0, Band Neutrophils 0, Platelet Estimate DecreasedL, Platelet Morphology Normal, Anisocytosis 1+, Prothrombin Time 13.6H , Prothromb Time International Ratio 1.3H, Activated Partial Thromboplast Time 29, Sodium Level 143, Potassium Level 3.3L, Chloride Level 106, Carbon Dioxide Level 29, Anion Gap 8, Blood Urea Nitrogen 9, Creatinine 0.2L, Estimat Glomerular Filtration Rate > 60, Glucose Level 147H, Calcium Level 7.5L, Phosphorus Level 2.0L, Magnesium Level 2.0, Total Bilirubin 0.5, Aspartate Amino Transf (AST/SGOT) 37, Alanine Aminotransferase (ALT/SGPT) 21, Alkaline Phosphatase 41, Total Protein 4.5L, Albumin 2.1L, Globulin 2.4, Albumin/ Globulin Ratio 0.8L Current Medications Medications (Trade) Dose Ordered Sig/Kimo Route PRN Reason Start Time Stop Time Status Last Admin Dose Admin Acetaminophen (Tylenol) 650 mg Q4H PRN ORAL FEVER 04/11/16 23:00 05/11/16 22:59 Albuterol/ Ipratropium (DuoNeb 0.5-3(2.5)mg/3ml) 3 ml Q4H PRN HHN Shortness of Breath 04/11/16 23:00 04/16/16 22:59 Cefepime HCl 2 gm/ Dextrose 110 ml @ 220 mls/hr EVERY 12 HOURS IV 04/12/16 09:00 04/19/16 08:59 04/12/16 08:43 Clonidine HCl (Catapres) 0.1 mg Q6H PRN GT For High Blood Pressure 04/11/16 23:00 05/11/16 22:59 Dextrose (Dextrose 50%) STAT PRN IV Hypoglycemia 04/11/16 23:00 05/11/16 22:59 Divalproex Sodium (Depakote Sprinkles) 500 mg Q8HR GT 04/12/16 06:00 05/12/16 05:59 04/12/16 13:21 Heparin Sodium (Porcine) (Heparin 5000 units/ml) 5,000 units EVERY 12 HOURS SUBQ 04/12/16 09:00 05/12/16 08:59 Levetiracetam (Keppra) 1,500 mg Q12HR GT 04/12/16 21:00 05/12/16 08:59 Lorazepam (Ativan 2mg/ml 1ml) 2 mg Q2H PRN IV For Anxiety 04/11/16 23:00 04/18/16 22:59 Morphine Sulfate (Morphine Sulfate) 4 mg Q4H PRN IVP Severe Pain (Pain Scale 7-10) 04/11/16 23:00 04/18/16 22:59 Ondansetron HCl (Zofran) 4 mg Q6H PRN IVP Nausea & Vomiting 04/11/16 23:00 05/11/16 22:59 Pantoprazole (Protonix) 40 mg DAILY IVP 04/12/16 09:00 05/12/16 08:59 04/12/16 08:43 Polyethylene Glycol (Miralax) 17 gm DAILYPRN PRN ORAL Constipation 04/11/16 23:00 05/11/16 22:59 Sodium Chloride 1,000 ml @ 50 mls/hr Q20H IV 04/11/16 23:00 05/11/16 22:59 Vancomycin HCl (Vanco rx to dose) 1 ea DAILY PRN MISC . 04/12/16 09:00 05/12/16 08:59 Vancomycin HCl/ Dextrose (Vancomycin/D5W) 325 ml @ 162.5 mls/ hr Q24H IVPB 04/12/16 18:00 04/17/16 17:59 BISHOP PENA Apr 12, 2016 17:04
[2016-04-12] MEDS ORDERED: Vancomycin 1.5 GM in D5W 325 ML IVPB SCH (18:00)
[2016-04-12 20:00] VITALS: BP 121/67
[2016-04-12] MEDS: levETIRAcetam 500mg/5ml Liquid GT SCH (21:50)
[2016-04-13] VITALS: BP 101/66
[2016-04-13 04:00] VITALS: BP 96/67
[2016-04-13] MEDS: Depakote 125mg Sprinkles GT SCH ×3 (05:17→21:06)
[2016-04-13 08:11] VITALS: BP 113/72
--- NOTE | 2016-04-13 08:38 | General Progress Note ---
Assessment/Plan Problem List: (1) Sacral decubitus ulcer ICD Codes: L89.159 - Pressure ulcer of sacral region, unspecified stage SNOMED: 035863486 (2) Septic shock ICD Codes: A41.9 - Septic shock; R65.21 - Severe sepsis with septic shock SNOMED: 87451709 (3) Cerebral vascular disease ICD Codes: I67.9 - Cerebrovascular disease, unspecified SNOMED: 78073016 (4) Seizure disorder ICD Codes: G40.909 - Epilepsy, unspecified, not intractable, without status epilepticus SNOMED: 496029667 Status: stable Assessment/Plan wean fio2 resp care iv abx gt feeds consider adding reglan if residuals high Subjective ROS Limited/Unobtainable: No Constitutional: Reports: malaise, weakness HEENT: Reports: no symptoms Cardiovascular: Reports: no symptoms Respiratory: Reports: cough, shortness of breath Gastrointestinal/Abdominal: Reports: difficulty swallowing Genitourinary: Reports: no symptoms Neurologic/Psychiatric: Reports: pre-existing deficit, seizure Endocrine: Reports: no symptoms Hematologic/Lymphatic: Reports: anemia Allergies: Coded Allergies: NO KNOWN DRUG ALLERGIES (Unverified Allergy, Unknown, 06/01/14) All Systems: reviewed and negative except above Subjective no events. of bipap. GT residual >120cc. poorly responsive. d/w rn and . Objective Last 24 Hour Vital Signs Date Time Temp Pulse Resp B/P Pulse Ox O2 Delivery O2 Flow Rate FiO2 04/13/16 08:11 98.1 93 18 113/72 92 10.0 04/13/16 04:00 97.0 107 20 96/67 100 Venturi Mask 04/13/16 00:00 97.3 98 20 101/66 100 04/12/16 20:00 97.2 96 16 121/67 96 Room Air 04/12/16 19:46 69 22 Venturi Mask 8.0 40 04/12/16 19:45 Venturi Mask 8.0 40 04/12/16 19:45 98 Venturi Mask 8.0 40 04/12/16 16:00 98.2 57 16 132/69 95 10.0 04/12/16 16:00 98.2 57 16 132/69 94 Room Air 04/12/16 11:59 98.4 77 18 104/76 99 10.0 Intake and Output 04/12/16 04/13/16 19:00 07:00 Intake Total 360 ml 200 ml Output Total 400 ml 640 ml Balance -40 ml -440 ml Intake Free Water 100 ml IV Total 160 ml 200 ml Tube Feeding 100 ml Output Urine Total 400 ml 640 ml Laboratory Tests 04/12/16 11:25: White Blood Count 2.5L, Red Blood Count 3.05L, Hemoglobin 9.6L, Hematocrit 29.1L , Mean Corpuscular Volume 95, Mean Corpuscular Hemoglobin 31.4H, Mean Corpuscular Hemoglobin Concent 32.9, Red Cell Distribution Width 16.2H, Platelet Count 101L, Mean Platelet Volume 10.4H, Neutrophils (%) (Auto) , Lymphocytes (%) (Auto) , Monocytes (%) (Auto) , Eosinophils (%) (Auto) , Basophils (%) (Auto) , Differential Total Cells Counted 100, Neutrophils % ( Manual) 73, Lymphocytes % (Manual) 24, Monocytes % (Manual) 3, Eosinophils % ( Manual) 0, Basophils % (Manual) 0, Band Neutrophils 0, Platelet Estimate DecreasedL, Platelet Morphology Normal, Anisocytosis 1+, Prothrombin Time 13.6H , Prothromb Time International Ratio 1.3H, Activated Partial Thromboplast Time 29, Sodium Level 143, Potassium Level 3.3L, Chloride Level 106, Carbon Dioxide Level 29, Anion Gap 8, Blood Urea Nitrogen 9, Creatinine 0.2L, Estimat Glomerular Filtration Rate > 60, Glucose Level 147H, Calcium Level 7.5L, Phosphorus Level 2.0L, Magnesium Level 2.0, Total Bilirubin 0.5, Aspartate Amino Transf (AST/SGOT) 37, Alanine Aminotransferase (ALT/SGPT) 21, Alkaline Phosphatase 41, Total Protein 4.5L, Albumin 2.1L, Globulin 2.4, Albumin/ Globulin Ratio 0.8L 04/12/16 22:30: Stool Occult Blood Negative Height (Feet): 5 Height (Inches): 2.00 Weight (Pounds): 160 General Appearance: WD/WN, lethargic Neck: supple Cardiovascular: regular rhythm Respiratory/Chest: normal breath sounds Abdomen: normal bowel sounds, non tender, soft, no organomegaly Edema: trace edema Neurologic: unresponsive, aphasia IRASEMA YU Apr 13, 2016 08:38
--- NOTE | 2016-04-13 08:40 | Infectious Diseases Prog Note ---
Assessment/Plan Assessment/Plan A: The patient is a 60-year-old female with Leukopenia Fever SP Sepsis, SP aspiration pneumonia CT: Consolidation of much of the visualized right lower lobe and tiny right- sided pleural effusion Probable UTI UCx : : MRSA Flu neg Wnd cx :GNR ( Colonizer ) Chronic Lt hip fracture deformity elevated CEA >> 8.8 Respiratory distress, SP CVA. SP PEG placement. History of anoxic brain damage. History of paraplegia. Seizure disorder. anemia. History of myocardial infarction. Hyperlipidemia. Hypertension. COPD. GERD DM Depression PLAN: Cont IV cefepime and IV vancomycin d# 6 / 7 Monitor cultures (blood, sputum). CBC Monitor BMP. Monitor chest x-ray EGD/colonoscopy Sunday if still inpatient Subjective Constitutional: Denies: anorexia, chills, drenching sweats, fatigue, fever, no symptoms, other Allergies: Coded Allergies: NO KNOWN DRUG ALLERGIES (Unverified Allergy, Unknown, 06/01/14) Objective Vital Signs Last 24 Hour Vital Signs Date Time Temp Pulse Resp B/P Pulse Ox O2 Delivery O2 Flow Rate FiO2 04/13/16 08:11 98.1 93 18 113/72 92 10.0 04/13/16 04:00 97.0 107 20 96/67 100 Venturi Mask 04/13/16 00:00 97.3 98 20 101/66 100 04/12/16 20:00 97.2 96 16 121/67 96 Room Air 04/12/16 19:46 69 22 Venturi Mask 8.0 40 04/12/16 19:45 Venturi Mask 8.0 40 04/12/16 19:45 98 Venturi Mask 8.0 40 04/12/16 16:00 98.2 57 16 132/69 95 10.0 04/12/16 16:00 98.2 57 16 132/69 94 Room Air 04/12/16 11:59 98.4 77 18 104/76 99 10.0 Height (Feet): 5 Height (Inches): 2.00 Weight (Pounds): 160 HEENT: anicteric Respiratory/Chest: normal breath sounds Cardiovascular: regular rhythm Abdomen: no organomegaly Laboratory Tests Test 04/12/16 11:25 04/12/16 22:30 White Blood Count 2.5 K/UL (4.8-10.8) L Red Blood Count 3.05 M/UL (4.20-5.40) L Hemoglobin 9.6 G/DL (12.0-16.0) L Hematocrit 29.1 % (37.0-47.0) L Mean Corpuscular Volume 95 FL (80-99) Mean Corpuscular Hemoglobin 31.4 PG (27.0-31.0) H Mean Corpuscular Hemoglobin Concent 32.9 G/DL (32.0-36.0) Red Cell Distribution Width 16.2 % (11.6-14.8) H Platelet Count 101 K/UL (150-450) L Mean Platelet Volume 10.4 FL (6.5-10.1) H Neutrophils (%) (Auto) % (45.0-75.0) Lymphocytes (%) (Auto) % (20.0-45.0) Monocytes (%) (Auto) % (1.0-10.0) Eosinophils (%) (Auto) % (0.0-3.0) Basophils (%) (Auto) % (0.0-2.0) Differential Total Cells Counted 100 Neutrophils % (Manual) 73 % (45-75) Lymphocytes % (Manual) 24 % (20-45) Monocytes % (Manual) 3 % (1-10) Eosinophils % (Manual) 0 % (0-3) Basophils % (Manual) 0 % (0-2) Band Neutrophils 0 % (0-8) Platelet Estimate Decreased L Platelet Morphology Normal Anisocytosis 1+ Prothrombin Time 13.6 SEC (9.30-11.50) H Prothromb Time International Ratio 1.3 (0.9-1.1) H Activated Partial Thromboplast Time 29 SEC (23-33) Sodium Level 143 mEQ/L (135-145) Potassium Level 3.3 mEQ/L (3.4-4.9) L Chloride Level 106 mEQ/L (98-107) Carbon Dioxide Level 29 mEQ/L (20-30) Anion Gap 8 (5-15) Blood Urea Nitrogen 9 mg/dL (7-23) Creatinine 0.2 mg/dL (0.5-0.9) L Estimat Glomerular Filtration Rate > 60 mL/min (>60) Glucose Level 147 mg/dL (74-106) H Calcium Level 7.5 mg/dL (8.6-10.2) L Phosphorus Level 2.0 mg/dL (2.5-4.8) L Magnesium Level 2.0 mg/dL (1.7-2.5) Total Bilirubin 0.5 mg/dL (0.0-1.2) Aspartate Amino Transf (AST/SGOT) 37 U/L (5-40) Alanine Aminotransferase (ALT/SGPT) 21 U/L (3-33) Alkaline Phosphatase 41 U/L (35-104) Total Protein 4.5 g/dL (6.6-8.7) L Albumin 2.1 g/dL (3.5-5.2) L Globulin 2.4 g/dL Albumin/Globulin Ratio 0.8 (1.0-2.7) L Stool Occult Blood Negative (NEGATIVE) Current Medications Medications (Trade) Dose Ordered Sig/Kimo Route PRN Reason Start Time Stop Time Status Last Admin Dose Admin Acetaminophen (Tylenol) 650 mg Q4H PRN ORAL FEVER 04/11/16 23:00 05/11/16 22:59 Albuterol/ Ipratropium (DuoNeb 0.5-3(2.5)mg/3ml) 3 ml Q4H PRN HHN Shortness of Breath 04/11/16 23:00 04/16/16 22:59 Cefepime HCl 2 gm/ Dextrose 110 ml @ 220 mls/hr EVERY 12 HOURS IV 04/12/16 09:00 04/19/16 08:59 04/12/16 21:50 Clonidine HCl (Catapres) 0.1 mg Q6H PRN GT For High Blood Pressure 04/11/16 23:00 05/11/16 22:59 Dextrose (Dextrose 50%) STAT PRN IV Hypoglycemia 04/11/16 23:00 05/11/16 22:59 Divalproex Sodium (Depakote Sprinkles) 500 mg Q8HR GT 04/12/16 06:00 05/12/16 05:59 04/13/16 05:17 Heparin Sodium (Porcine) (Heparin 5000 units/ml) 5,000 units EVERY 12 HOURS SUBQ 04/12/16 09:00 05/12/16 08:59 Levetiracetam (Keppra) 1,500 mg Q12HR GT 04/12/16 21:00 05/12/16 08:59 04/12/16 21:50 Lorazepam (Ativan 2mg/ml 1ml) 2 mg Q2H PRN IV For Anxiety 04/11/16 23:00 04/18/16 22:59 Morphine Sulfate (Morphine Sulfate) 4 mg Q4H PRN IVP Severe Pain (Pain Scale 7-10) 04/11/16 23:00 04/18/16 22:59 Ondansetron HCl (Zofran) 4 mg Q6H PRN IVP Nausea & Vomiting 04/11/16 23:00 05/11/16 22:59 Pantoprazole (Protonix) 40 mg DAILY IVP 04/12/16 09:00 05/12/16 08:59 04/12/16 08:43 Polyethylene Glycol (Miralax) 17 gm DAILYPRN PRN ORAL Constipation 04/11/16 23:00 05/11/16 22:59 Sodium Chloride 1,000 ml @ 50 mls/hr Q20H IV 04/11/16 23:00 05/11/16 22:59 04/12/16 18:00 Vancomycin HCl (Vanco rx to dose) 1 ea DAILY PRN MISC . 04/12/16 09:00 05/12/16 08:59 Vancomycin HCl/ Dextrose (Vancomycin/D5W) 325 ml @ 162.5 mls/ hr Q24H IVPB 04/12/16 18:00 04/17/16 17:59 04/12/16 17:59 DEIDRA RAMOS M.D. Apr 13, 2016 08:40
[2016-04-13] MEDS: Heparin 5000 units/ml inj SUBQ SCH ×2 (09:00→21:00)
[2016-04-13] MEDS: levETIRAcetam 500mg/5ml Liquid GT SCH ×2 (10:01→21:05)
[2016-04-13] MEDS: Pantoprazole Inj IVP SCH (10:02)
[2016-04-13] MEDS: Cefepime HCl 2 GM in D5W 110 ML IV SCH ×2 (10:02→22:09)
[2016-04-13] MEDS ORDERED: CEFEPIME 11 GM/50 ML IV (11:21)
[2016-04-13] MEDS ORDERED: VANCOMYCIN1 GM/2502 IVPB (11:23)
[2016-04-13 11:45] VITALS: BP 120/79
--- NOTE | 2016-04-13 13:38 | GI Progress Note ---
Assessment/Plan Problems: (1) G tube feedings ICD Codes: Z93.1 - Gastrostomy status SNOMED: 641603162, 767021318 (2) Hypoalbuminemia ICD Codes: E88.09 - Other disorders of plasma-protein metabolism, not elsewhere classified SNOMED: 581394480 (3) Pancytopenia ICD Codes: D61.818 - Other pancytopenia SNOMED: 587736625 (4) Dysphagia ICD Codes: R13.10 - Dysphagia, unspecified SNOMED: 12860610, 129161092 (5) Anemia ICD Codes: D64.9 - Anemia SNOMED: 566845246 Status: unchanged Status Narrative Discussed with Dr. Blanca. Assessment/Plan elevated CEA >> 8.8 iron panel reviewed, unremarkable AP CT reviewed >> No definite acute abdominal process OB stool negative hold EGD/colonoscopy, pt not stable ordered additional OB stool monitor H&H, transfuse prn ppi GTFs GT site care/prn fu labs recommend heme/onc to evaluate pancytopenia Subjective Subjective limited Objective Last 24 Hour Vital Signs Date Time Temp Pulse Resp B/P Pulse Ox O2 Delivery O2 Flow Rate FiO2 04/13/16 11:45 97.3 104 21 120/79 93 Venturi Mask 10.0 04/13/16 08:11 98.1 93 18 113/72 92 10.0 04/13/16 07:38 98 Venturi Mask 8.0 40 04/13/16 07:38 Venturi Mask 8.0 40 04/13/16 07:38 95 22 Venturi Mask 8.0 40 04/13/16 04:00 97.0 107 20 96/67 100 Venturi Mask 04/13/16 00:00 97.3 98 20 101/66 100 04/12/16 20:00 97.2 96 16 121/67 96 Room Air 04/12/16 19:46 69 22 Venturi Mask 8.0 40 04/12/16 19:45 Venturi Mask 8.0 40 04/12/16 19:45 98 Venturi Mask 8.0 40 04/12/16 16:00 98.2 57 16 132/69 95 10.0 04/12/16 16:00 98.2 57 16 132/69 94 Room Air Intake and Output 04/12/16 04/13/16 19:00 07:00 Intake Total 360 ml 200 ml Output Total 400 ml 640 ml Balance -40 ml -440 ml Intake Free Water 100 ml IV Total 160 ml 200 ml Tube Feeding 100 ml Output Urine Total 400 ml 640 ml Laboratory Tests Test 04/12/16 22:30 Stool Occult Blood Negative (NEGATIVE) Height (Feet): 5 Height (Inches): 2.00 Weight (Pounds): 160 General Appearance: mild distress, obese Cardiovascular: normal rate Respiratory/Chest: other - venturi mask Abdominal Exam: site - c/d/i Cora Negrete N.P. Apr 13, 2016 13:38
[2016-04-13 16:00] VITALS: BP 106/70
[2016-04-13] MEDS ORDERED: Sodium Phosphate 30 MM in NS 275 ML IVPB ONE (16:00)
--- NOTE | 2016-04-13 16:07 | Pulmonology Progress Note ---
Assessment/Plan Problems: (1) Septic shock (2) Acute respiratory failure (3) Anoxic encephalopathy (4) Decubitus ulcer of sacral area (5) Cerebral vascular disease (6) Seizure disorder Assessment/Plan afebrile cxr reviewed improving afebrile dvt prophylaxis respiratory treatment might go to correction to finish her antibiotics Subjective Interval Events: looks comfortable Allergies: Coded Allergies: NO KNOWN DRUG ALLERGIES (Unverified Allergy, Unknown, 06/01/14) Objective Last 24 Hour Vital Signs Date Time Temp Pulse Resp B/P Pulse Ox O2 Delivery O2 Flow Rate FiO2 04/13/16 11:45 97.3 104 21 120/79 93 Venturi Mask 10.0 04/13/16 08:11 98.1 93 18 113/72 92 10.0 04/13/16 07:38 98 Venturi Mask 8.0 40 04/13/16 07:38 Venturi Mask 8.0 40 04/13/16 07:38 95 22 Venturi Mask 8.0 40 04/13/16 04:00 97.0 107 20 96/67 100 Venturi Mask 04/13/16 00:00 97.3 98 20 101/66 100 04/12/16 20:00 97.2 96 16 121/67 96 Room Air 04/12/16 19:46 69 22 Venturi Mask 8.0 40 04/12/16 19:45 Venturi Mask 8.0 40 04/12/16 19:45 98 Venturi Mask 8.0 40 Intake and Output 04/12/16 04/13/16 19:00 07:00 Intake Total 360 ml 250 ml Output Total 400 ml 640 ml Balance -40 ml -390 ml Intake Free Water 100 ml IV Total 160 ml 250 ml Tube Feeding 100 ml Output Urine Total 400 ml 640 ml General Appearance: WD/WN HEENT: normocephalic, anicteric Respiratory/Chest: chest wall non-tender, lungs clear Cardiovascular: normal peripheral pulses, normal rate Abdomen: normal bowel sounds, soft, non tender Genitourinary: normal external genitalia Extremities: no clubbing Laboratory Tests 04/12/16 22:30: Stool Occult Blood Negative Current Medications Medications (Trade) Dose Ordered Sig/Kimo Route PRN Reason Start Time Stop Time Status Last Admin Dose Admin Acetaminophen (Tylenol) 650 mg Q4H PRN ORAL FEVER 04/11/16 23:00 05/11/16 22:59 Albuterol/ Ipratropium (DuoNeb 0.5-3(2.5)mg/3ml) 3 ml Q4H PRN HHN Shortness of Breath 04/11/16 23:00 04/16/16 22:59 Cefepime HCl 2 gm/ Dextrose 110 ml @ 220 mls/hr EVERY 12 HOURS IV 04/12/16 09:00 04/19/16 08:59 04/13/16 10:02 Clonidine HCl (Catapres) 0.1 mg Q6H PRN GT For High Blood Pressure 04/11/16 23:00 05/11/16 22:59 Dextrose (Dextrose 50%) STAT PRN IV Hypoglycemia 04/11/16 23:00 05/11/16 22:59 Divalproex Sodium (Depakote Sprinkles) 500 mg Q8HR GT 04/12/16 06:00 05/12/16 05:59 04/13/16 14:16 Heparin Sodium (Porcine) (Heparin 5000 units/ml) 5,000 units EVERY 12 HOURS SUBQ 04/12/16 09:00 05/12/16 08:59 Levetiracetam 1500 mg 1,500 mg Q12HR GT 04/12/16 21:00 05/12/16 08:59 04/13/16 10:01 Lorazepam (Ativan 2mg/ml 1ml) 2 mg Q2H PRN IV For Anxiety 04/11/16 23:00 04/18/16 22:59 Morphine Sulfate (Morphine Sulfate) 4 mg Q4H PRN IVP Severe Pain (Pain Scale 7-10) 04/11/16 23:00 04/18/16 22:59 Ondansetron HCl (Zofran) 4 mg Q6H PRN IVP Nausea & Vomiting 04/11/16 23:00 05/11/16 22:59 Pantoprazole (Protonix) 40 mg DAILY IVP 04/12/16 09:00 05/12/16 08:59 04/13/16 10:02 Polyethylene Glycol (Miralax) 17 gm DAILYPRN PRN ORAL Constipation 04/11/16 23:00 05/11/16 22:59 Sodium Chloride 1,000 ml @ 50 mls/hr Q20H IV 04/11/16 23:00 05/11/16 22:59 04/13/16 14:17 Sodium Phosphate/ Sodium Chloride (NaPO4/Sodium Chloride) 285 ml @ 47.5 mls/hr ONCE ONCE IVPB 04/13/16 16:00 04/13/16 21:59 Vancomycin HCl (Vanco rx to dose) 1 ea DAILY PRN MISC . 04/12/16 09:00 05/12/16 08:59 Vancomycin HCl/ Dextrose (Vancomycin/D5W) 325 ml @ 162.5 mls/ hr Q24H IVPB 04/12/16 18:00 04/17/16 17:59 04/12/16 17:59 BISHOP PENA Apr 13, 2016 16:07
[2016-04-13 19:00] VITALS: BP 119/87
[2016-04-13] MEDS: Vancomycin 750mg/D5W 275ml IVPB SCH ×2 (21:03)
[2016-04-14] VITALS: BP 116/73
[2016-04-14 04:00] VITALS: BP 112/82
[2016-04-14] MEDS: Depakote 125mg Sprinkles GT SCH ×2 (05:13→15:03)
[2016-04-14 06:43] LABS: MEAN CORPUSCULAR HEMOGLOBIN 31.7 PG (27.0-31.0); MEAN CORPUSCULAR HGB CONC 33.1 G/DL (32.0-36.0); MEAN CORPUSCULAR VOLUME 96 FL (80-99); MEAN PLATELET VOLUME 9.8 FL (6.5-10.1); PLATELET COUNT 136 K/UL (150-450); RED BLOOD COUNT 3.11 M/UL (4.20-5.40); RED CELL DISTRIBUTION WIDTH 16.5 % (11.6-14.8); WHITE BLOOD COUNT 2.6 K/UL (4.8-10.8)
[2016-04-14 07:14] LABS: ANION GAP 10 (5-15); CALCIUM 7.7 mg/dL (8.6-10.2); CARBON DIOXIDE 29 mEQ/L (20-30); CHLORIDE 105 mEQ/L (98-107); CREATININE 0.3 mg/dL (0.5-0.9); GLOMERULAR FILTRATION RATE > 60 mL/min (>60); HEMOLYSIS 2; PHOSPHORUS 3.1 mg/dL (2.5-4.8); POTASSIUM 3.2 mEQ/L (3.4-4.9); SODIUM 144 mEQ/L (135-145)
[2016-04-14] MEDS: Vancomycin 750mg/D5W 275ml IVPB SCH ×2 (07:42)
--- NOTE | 2016-04-14 07:51 | General Progress Note ---
Assessment/Plan Problem List: (1) Sacral decubitus ulcer ICD Codes: L89.159 - Pressure ulcer of sacral region, unspecified stage SNOMED: 811751691 (2) Septic shock ICD Codes: A41.9 - Septic shock; R65.21 - Severe sepsis with septic shock SNOMED: 47540155 (3) Cerebral vascular disease ICD Codes: I67.9 - Cerebrovascular disease, unspecified SNOMED: 96988276 (4) Seizure disorder ICD Codes: G40.909 - Epilepsy, unspecified, not intractable, without status epilepticus SNOMED: 821453449 Status: stable Assessment/Plan wean fio2 resp care iv abx at [facility] gt feeds dc today complete abx at [facility] Subjective ROS Limited/Unobtainable: Yes Constitutional: Reports: malaise, weakness HEENT: Reports: no symptoms Cardiovascular: Reports: no symptoms Respiratory: Reports: cough Gastrointestinal/Abdominal: Reports: difficulty swallowing Genitourinary: Reports: no symptoms Neurologic/Psychiatric: Reports: no symptoms Endocrine: Reports: no symptoms Hematologic/Lymphatic: Reports: no symptoms Allergies: Coded Allergies: NO KNOWN DRUG ALLERGIES (Unverified Allergy, Unknown, 06/01/14) All Systems: reviewed and negative except above Subjective tolerating feeds. wean venti mask. on iv abx. no fever or chills. more alert but does not follow commands Objective Last 24 Hour Vital Signs Date Time Temp Pulse Resp B/P Pulse Ox O2 Delivery O2 Flow Rate FiO2 04/14/16 04:00 97.5 102 20 112/82 99 Venturi Mask 4.0 30 04/14/16 00:00 96.6 98 20 116/73 99 Venturi Mask 4.0 30 04/13/16 19:08 98 Venturi Mask 8.0 40 04/13/16 19:08 Venturi Mask 8.0 40 04/13/16 19:08 82 22 Venturi Mask 8.0 40 04/13/16 19:00 96.8 98 20 119/87 100 Nasal Cannula 5.0 04/13/16 16:00 97.0 96 20 106/70 100 Nasal Cannula 5.0 04/13/16 11:45 97.3 104 21 120/79 93 Venturi Mask 10.0 04/13/16 08:11 98.1 93 18 113/72 92 10.0 Intake and Output 04/13/16 04/14/16 19:00 07:00 Intake Total 895 ml 1211 ml Output Total 550 ml 200 ml Balance 345 ml 1011 ml Intake Free Water 100 ml 200 ml IV Total 720 ml 600 ml Tube Feeding 75 ml 411 ml Output Urine Total 550 ml 200 ml Laboratory Tests 04/13/16 17:38: Vancomycin Level Trough 9.3 04/14/16 05:00: White Blood Count 2.6L, Red Blood Count 3.11L, Hemoglobin 9.9L, Hematocrit 29.9L , Mean Corpuscular Volume 96, Mean Corpuscular Hemoglobin 31.7H, Mean Corpuscular Hemoglobin Concent 33.1, Red Cell Distribution Width 16.5H, Platelet Count 136L, Mean Platelet Volume 9.8, Neutrophils (%) (Auto) , Lymphocytes (%) (Auto) , Monocytes (%) (Auto) , Eosinophils (%) (Auto) , Basophils (%) (Auto) , Neutrophils % (Manual) [Pending], Lymphocytes % (Manual) [Pending], Platelet Estimate [Pending], Platelet Morphology [Pending], Sodium Level 144, Potassium Level 3.2L, Chloride Level 105, Carbon Dioxide Level 29, Anion Gap 10, Blood Urea Nitrogen 6L, Creatinine 0.3L, Estimat Glomerular Filtration Rate > 60, Glucose Level 144H, Calcium Level 7.7L, Phosphorus Level 3.1 Height (Feet): 5 Height (Inches): 2.00 Weight (Pounds): 160 General Appearance: WD/WN, alert, confused Neck: supple Cardiovascular: regular rhythm Respiratory/Chest: lungs clear, normal breath sounds, no respiratory distress Abdomen: normal bowel sounds, non tender, soft, no organomegaly Edema: no edema noted Arm (L), no edema noted Arm (R), no edema noted Leg (L), no edema noted Leg (R), no edema noted Pedal (L), no edema noted Pedal (R), no edema noted Generalized Neurologic: alert, aphasia IRASEMA YU Apr 14, 2016 07:51
[2016-04-14 08:30] VITALS: BP 105/76
[2016-04-14] MEDS: Heparin 5000 units/ml inj SUBQ SCH (09:00)
[2016-04-14] MEDS ORDERED: KCl 10% 40mEq/30ml liquid NG ONE (09:30)
[2016-04-14] MEDS: Cefepime HCl 2 GM in D5W 110 ML IV SCH (09:47)
[2016-04-14] MEDS: Pantoprazole Inj IVP SCH (09:48)
[2016-04-14] MEDS: levETIRAcetam 500mg/5ml Liquid GT SCH (09:48)
[2016-04-14 09:49] LABS: ANISOCYTOSIS 1+; BAND NEUTROPHILS % (MANUAL) 0 % (0-8); BASOPHILS % (MANUAL) 0 % (0-2); EOSINOPHILS % (MANUAL) 0 % (0-3); HYPOCHROMASIA 1+; LYMPHOCYTES % (MANUAL) 43 % (20-45); NEUTROPHILS % (MANUAL) 53 % (45-75); PLATELET ESTIMATE DECREASED; PLATELET MORPHOLOGY NORMAL; TOTAL CELLS COUNTED 100
--- NOTE | 2016-04-14 11:08 | GI Progress Note ---
Assessment/Plan Problems: (1) G tube feedings ICD Codes: Z93.1 - Gastrostomy status SNOMED: 961837550, 652256990 (2) Hypoalbuminemia ICD Codes: E88.09 - Other disorders of plasma-protein metabolism, not elsewhere classified SNOMED: 847592331 (3) Pancytopenia ICD Codes: D61.818 - Other pancytopenia SNOMED: 850780675 (4) Dysphagia ICD Codes: R13.10 - Dysphagia, unspecified SNOMED: 81889318, 092019568 (5) Anemia ICD Codes: D64.9 - Anemia SNOMED: 397247356 Status: stable Status Narrative Discussed with . Assessment/Plan elevated CEA >> 8.8 iron panel reviewed, unremarkable AP CT reviewed >> No definite acute abdominal process OB stool negative ok for DC per GI standpoint outpatient GI procedures OB stool uncollected monitor H&H, transfuse prn ppi GTFs GT site care/prn fu labs recommend heme/onc to evaluate pancytopenia Subjective Subjective limited Objective Last 24 Hour Vital Signs Date Time Temp Pulse Resp B/P Pulse Ox O2 Delivery O2 Flow Rate FiO2 04/14/16 08:38 93 Nasal Cannula 4.0 36 04/14/16 08:38 Room Air 4.0 36 04/14/16 08:34 112 20 Nasal Cannula 4.0 04/14/16 08:30 97.0 114 20 105/76 96 Room Air 04/14/16 04:00 97.5 102 20 112/82 99 Venturi Mask 4.0 30 04/14/16 00:00 96.6 98 20 116/73 99 Venturi Mask 4.0 30 04/13/16 19:08 98 Venturi Mask 8.0 40 04/13/16 19:08 Venturi Mask 8.0 40 04/13/16 19:08 82 22 Venturi Mask 8.0 40 04/13/16 19:00 96.8 98 20 119/87 100 Nasal Cannula 5.0 04/13/16 16:00 97.0 96 20 106/70 100 Nasal Cannula 5.0 04/13/16 11:45 97.3 104 21 120/79 93 Venturi Mask 10.0 Intake and Output 04/13/16 04/14/16 19:00 07:00 Intake Total 895 ml 1211 ml Output Total 550 ml 200 ml Balance 345 ml 1011 ml Intake Free Water 100 ml 200 ml IV Total 720 ml 600 ml Tube Feeding 75 ml 411 ml Output Urine Total 550 ml 200 ml Laboratory Tests Test 04/13/16 17:38 04/14/16 05:00 Vancomycin Level Trough 9.3 ug/mL (5.0-12.0) White Blood Count 2.6 K/UL (4.8-10.8) L Red Blood Count 3.11 M/UL (4.20-5.40) L Hemoglobin 9.9 G/DL (12.0-16.0) L Hematocrit 29.9 % (37.0-47.0) L Mean Corpuscular Volume 96 FL (80-99) Mean Corpuscular Hemoglobin 31.7 PG (27.0-31.0) H Mean Corpuscular Hemoglobin Concent 33.1 G/DL (32.0-36.0) Red Cell Distribution Width 16.5 % (11.6-14.8) H Platelet Count 136 K/UL (150-450) L Mean Platelet Volume 9.8 FL (6.5-10.1) Neutrophils (%) (Auto) % (45.0-75.0) Lymphocytes (%) (Auto) % (20.0-45.0) Monocytes (%) (Auto) % (1.0-10.0) Eosinophils (%) (Auto) % (0.0-3.0) Basophils (%) (Auto) % (0.0-2.0) Differential Total Cells Counted 100 Neutrophils % (Manual) 53 % (45-75) Lymphocytes % (Manual) 43 % (20-45) Monocytes % (Manual) 4 % (1-10) Eosinophils % (Manual) 0 % (0-3) Basophils % (Manual) 0 % (0-2) Band Neutrophils 0 % (0-8) Platelet Estimate Decreased L Platelet Morphology Normal Hypochromasia 1+ Anisocytosis 1+ Sodium Level 144 mEQ/L (135-145) Potassium Level 3.2 mEQ/L (3.4-4.9) L Chloride Level 105 mEQ/L (98-107) Carbon Dioxide Level 29 mEQ/L (20-30) Anion Gap 10 (5-15) Blood Urea Nitrogen 6 mg/dL (7-23) L Creatinine 0.3 mg/dL (0.5-0.9) L Estimat Glomerular Filtration Rate > 60 mL/min (>60) Glucose Level 144 mg/dL (74-106) H Calcium Level 7.7 mg/dL (8.6-10.2) L Phosphorus Level 3.1 mg/dL (2.5-4.8) Height (Feet): 5 Height (Inches): 2.00 Weight (Pounds): 160 General Appearance: no apparent distress, alert Cardiovascular: normal rate Respiratory/Chest: normal breath sounds, other - 2LNC Abdominal Exam: GT site - c/d/i Cora Negrete N.P. Apr 14, 2016 11:08
[2016-04-14 11:45] VITALS: BP 145/98
--- NOTE | 2016-04-14 13:32 | Pulmonology Progress Note ---
Assessment/Plan Assessment/Plan ASSESSMENT septic shock sepsis aspiration PNA UTI acute respiratory failure, requiring BiPAP-resolved dementia hx of CVA dysphagia, G tube seizure disorder anoxic encephalopathy sacral decub -POA anemia functional paraplegia COPD PLAN OF CARE [facility] floor off BiPAP O2, HHN, titrate to keep sat above 92% stable respiratory status CXR negative abx, ID follows BP stable Venous Duplex BLE negative CTA/P no definite acute abdominal pathology , but with evidence,of consolidation in RLL blood cx negative, urine cx + MRSA, influenza screen negative, wound cx + MRSA, E coli ( colonized as per ID) abx on dc as oer ID recommendation gentle IVF monitor renal parameters, lytes DVT, GI prophylaxis seizure precautions, continue Keppra and Depakote strict aspiration precautions, GT feeding, monitor tolerance Bowel regimen pain management wound care DNR status ok for dc today to SNF on IV abx as outlined by ID case discussed and evaluated by supervising physician Subjective Allergies: Coded Allergies: NO KNOWN DRUG ALLERGIES (Unverified Allergy, Unknown, 06/01/14) Subjective off Bipap, on O2 via NC sat stable no signs of respiratory distress BP stable Objective Last 24 Hour Vital Signs Date Time Temp Pulse Resp B/P Pulse Ox O2 Delivery O2 Flow Rate FiO2 04/14/16 11:45 97.7 117 16 145/98 96 Nasal Cannula 04/14/16 08:38 93 Nasal Cannula 4.0 36 04/14/16 08:38 Room Air 4.0 36 04/14/16 08:34 112 20 Nasal Cannula 4.0 04/14/16 08:30 97.0 114 20 105/76 96 Room Air 04/14/16 04:00 97.5 102 20 112/82 99 Venturi Mask 4.0 30 04/14/16 00:00 96.6 98 20 116/73 99 Venturi Mask 4.0 30 04/13/16 19:08 98 Venturi Mask 8.0 40 04/13/16 19:08 Venturi Mask 8.0 40 04/13/16 19:08 82 22 Venturi Mask 8.0 40 04/13/16 19:00 96.8 98 20 119/87 100 Nasal Cannula 5.0 04/13/16 16:00 97.0 96 20 106/70 100 Nasal Cannula 5.0 Intake and Output 04/13/16 04/14/16 19:00 07:00 Intake Total 895 ml 1211 ml Output Total 550 ml 200 ml Balance 345 ml 1011 ml Intake Free Water 100 ml 200 ml IV Total 720 ml 600 ml Tube Feeding 75 ml 411 ml Output Urine Total 550 ml 200 ml General Appearance: other - [id number], nonverbal, awake, not responsive to verbal stimuli, only to deep tactile HEENT: normocephalic, atraumatic, PERRL, other - O2 via NC Respiratory/Chest: chest wall non-tender, no accessory muscle use, decreased breath sounds Cardiovascular: normal peripheral pulses, normal rate, no JVD Abdomen: normal bowel sounds, soft, non tender, other - G tube Extremities: no edema Skin: other - sacral decub Neurologic/Psychiatric: abnormal gait - bedridden, other - nonverbal, responds to tactile stimuli only, contracted Laboratory Tests 04/13/16 17:38: Vancomycin Level Trough 9.3 04/14/16 05:00: White Blood Count 2.6L, Red Blood Count 3.11L, Hemoglobin 9.9L, Hematocrit 29.9L , Mean Corpuscular Volume 96, Mean Corpuscular Hemoglobin 31.7H, Mean Corpuscular Hemoglobin Concent 33.1, Red Cell Distribution Width 16.5H, Platelet Count 136L, Mean Platelet Volume 9.8, Neutrophils (%) (Auto) , Lymphocytes (%) (Auto) , Monocytes (%) (Auto) , Eosinophils (%) (Auto) , Basophils (%) (Auto) , Differential Total Cells Counted 100, Neutrophils % ( Manual) 53, Lymphocytes % (Manual) 43, Monocytes % (Manual) 4, Eosinophils % ( Manual) 0, Basophils % (Manual) 0, Band Neutrophils 0, Platelet Estimate DecreasedL, Platelet Morphology Normal, Hypochromasia 1+, Anisocytosis 1+, Sodium Level 144, Potassium Level 3.2L, Chloride Level 105, Carbon Dioxide Level 29, Anion Gap 10, Blood Urea Nitrogen 6L, Creatinine 0.3L, Estimat Glomerular Filtration Rate > 60, Glucose Level 144H, Calcium Level 7.7L, Phosphorus Level 3.1 Current Medications Medications (Trade) Dose Ordered Sig/Kimo Route PRN Reason Start Time Stop Time Status Last Admin Dose Admin Acetaminophen (Tylenol) 650 mg Q4H PRN ORAL FEVER 04/11/16 23:00 05/11/16 22:59 Albuterol/ Ipratropium (DuoNeb 0.5-3(2.5)mg/3ml) 3 ml Q4H PRN HHN Shortness of Breath 04/11/16 23:00 04/16/16 22:59 Cefepime HCl/ Dextrose (Maxipime/D5W) 110 ml @ 220 mls/hr EVERY 12 HOURS IV 04/12/16 09:00 04/14/16 23:59 04/14/16 09:47 Clonidine HCl (Catapres) 0.1 mg Q6H PRN GT For High Blood Pressure 04/11/16 23:00 05/11/16 22:59 Dextrose (Dextrose 50%) STAT PRN IV Hypoglycemia 04/11/16 23:00 05/11/16 22:59 Divalproex Sodium (Depakote Sprinkles) 500 mg Q8HR GT 04/12/16 06:00 05/12/16 05:59 04/14/16 05:13 Heparin Sodium (Porcine) (Heparin 5000 units/ml) 5,000 units EVERY 12 HOURS SUBQ 04/12/16 09:00 05/12/16 08:59 Levetiracetam 1500 mg 1,500 mg Q12HR GT 04/12/16 21:00 05/12/16 08:59 04/14/16 09:48 Lorazepam (Ativan 2mg/ml 1ml) 2 mg Q2H PRN IV For Anxiety 04/11/16 23:00 04/18/16 22:59 Morphine Sulfate (Morphine Sulfate) 4 mg Q4H PRN IVP Severe Pain (Pain Scale 7-10) 04/11/16 23:00 04/18/16 22:59 Ondansetron HCl (Zofran) 4 mg Q6H PRN IVP Nausea & Vomiting 04/11/16 23:00 05/11/16 22:59 Pantoprazole (Protonix) 40 mg DAILY IVP 04/12/16 09:00 05/12/16 08:59 04/14/16 09:48 Polyethylene Glycol (Miralax) 17 gm DAILYPRN PRN ORAL Constipation 04/11/16 23:00 05/11/16 22:59 Sodium Chloride 1,000 ml @ 50 mls/hr Q20H IV 04/11/16 23:00 05/11/16 22:59 04/14/16 11:22 Vancomycin HCl (Vanco rx to dose) 1 ea DAILY PRN MISC . 04/12/16 09:00 05/12/16 08:59 Vancomycin HCl/ Dextrose (Vancomycin/D5W) 275 ml @ 183.708 mls/hr Q12H IVPB 04/13/16 20:00 04/14/16 23:59 04/14/16 07:42 Rodriguez (Isma)Susie NP Apr 14, 2016 13:32
[2016-04-14 16:00] VITALS: BP 100/64
[2016-04-14] MEDS ORDERED: Tubing IV Secondary IV ONE ×2 (17:04)
[2016-04-14] MEDS ORDERED: NS 275ml ONE (17:04)
[2016-04-14] MEDS ORDERED: 1/2 NS 1000ml IV ONE ×2 (17:04)
[2016-04-14] MEDS ORDERED: Sterile Water Irrig 1000ml IRRIG ONE ×2 (17:04)
[2016-04-14] MEDS ORDERED: Tubing Blood Filter IV ONE (17:04)
--- NOTE | 2016-04-14 17:21 | Pulmonology Progress Note ---
Subjective Allergies: Coded Allergies: NO KNOWN DRUG ALLERGIES (Unverified Allergy, Unknown, 06/01/14) Objective Last 24 Hour Vital Signs Date Time Temp Pulse Resp B/P Pulse Ox O2 Delivery O2 Flow Rate FiO2 04/14/16 16:00 97.8 109 17 100/64 95 Nasal Cannula 2.0 04/14/16 11:45 97.7 117 16 145/98 96 Nasal Cannula 04/14/16 08:38 93 Nasal Cannula 4.0 36 04/14/16 08:38 Room Air 4.0 36 04/14/16 08:34 112 20 Nasal Cannula 4.0 04/14/16 08:30 97.0 114 20 105/76 96 Room Air 04/14/16 04:00 97.5 102 20 112/82 99 Venturi Mask 4.0 30 04/14/16 00:00 96.6 98 20 116/73 99 Venturi Mask 4.0 30 04/13/16 19:08 98 Venturi Mask 8.0 40 04/13/16 19:08 Venturi Mask 8.0 40 04/13/16 19:08 82 22 Venturi Mask 8.0 40 04/13/16 19:00 96.8 98 20 119/87 100 Nasal Cannula 5.0 Intake and Output 04/13/16 04/14/16 19:00 07:00 Intake Total 895 ml 1211 ml Output Total 550 ml 200 ml Balance 345 ml 1011 ml Intake Free Water 100 ml 200 ml IV Total 720 ml 600 ml Tube Feeding 75 ml 411 ml Output Urine Total 550 ml 200 ml Laboratory Tests 04/13/16 17:38: Vancomycin Level Trough 9.3 04/14/16 05:00: White Blood Count 2.6L, Red Blood Count 3.11L, Hemoglobin 9.9L, Hematocrit 29.9L , Mean Corpuscular Volume 96, Mean Corpuscular Hemoglobin 31.7H, Mean Corpuscular Hemoglobin Concent 33.1, Red Cell Distribution Width 16.5H, Platelet Count 136L, Mean Platelet Volume 9.8, Neutrophils (%) (Auto) , Lymphocytes (%) (Auto) , Monocytes (%) (Auto) , Eosinophils (%) (Auto) , Basophils (%) (Auto) , Differential Total Cells Counted 100, Neutrophils % ( Manual) 53, Lymphocytes % (Manual) 43, Monocytes % (Manual) 4, Eosinophils % ( Manual) 0, Basophils % (Manual) 0, Band Neutrophils 0, Platelet Estimate DecreasedL, Platelet Morphology Normal, Hypochromasia 1+, Anisocytosis 1+, Sodium Level 144, Potassium Level 3.2L, Chloride Level 105, Carbon Dioxide Level 29, Anion Gap 10, Blood Urea Nitrogen 6L, Creatinine 0.3L, Estimat Glomerular Filtration Rate > 60, Glucose Level 144H, Calcium Level 7.7L, Phosphorus Level 3.1 Current Medications Medications (Trade) Dose Ordered Sig/Kimo Route PRN Reason Start Time Stop Time Status Last Admin Dose Admin Acetaminophen (Tylenol) 650 mg Q4H PRN ORAL FEVER 04/11/16 23:00 05/11/16 22:59 Albuterol/ Ipratropium (DuoNeb 0.5-3(2.5)mg/3ml) 3 ml Q4H PRN HHN Shortness of Breath 04/11/16 23:00 04/16/16 22:59 Cefepime HCl/ Dextrose (Maxipime/D5W) 110 ml @ 220 mls/hr EVERY 12 HOURS IV 04/12/16 09:00 04/14/16 23:59 04/14/16 09:47 Clonidine HCl (Catapres) 0.1 mg Q6H PRN GT For High Blood Pressure 04/11/16 23:00 05/11/16 22:59 Dextrose (Dextrose 50%) STAT PRN IV Hypoglycemia 04/11/16 23:00 05/11/16 22:59 Divalproex Sodium (Depakote Sprinkles) 500 mg Q8HR GT 04/12/16 06:00 05/12/16 05:59 04/14/16 15:03 Heparin Sodium (Porcine) (Heparin 5000 units/ml) 5,000 units EVERY 12 HOURS SUBQ 04/12/16 09:00 05/12/16 08:59 Levetiracetam 1500 mg 1,500 mg Q12HR GT 04/12/16 21:00 05/12/16 08:59 04/14/16 09:48 Lorazepam (Ativan 2mg/ml 1ml) 2 mg Q2H PRN IV For Anxiety 04/11/16 23:00 04/18/16 22:59 Morphine Sulfate (Morphine Sulfate) 4 mg Q4H PRN IVP Severe Pain (Pain Scale 7-10) 1/31/17 23:00 04/18/16 22:59 Ondansetron HCl (Zofran) 4 mg Q6H PRN IVP Nausea & Vomiting 04/11/16 23:00 05/11/16 22:59 Pantoprazole (Protonix) 40 mg DAILY IVP 04/12/16 09:00 05/12/16 08:59 04/14/16 09:48 Polyethylene Glycol (Miralax) 17 gm DAILYPRN PRN ORAL Constipation 04/11/16 23:00 05/11/16 22:59 Sodium Chloride 1,000 ml @ 50 mls/hr Q20H IV 04/11/16 23:00 05/11/16 22:59 04/14/16 11:22 Vancomycin HCl (Vanco rx to dose) 1 ea DAILY PRN MISC . 04/12/16 09:00 05/12/16 08:59 Vancomycin HCl/ Dextrose (Vancomycin/D5W) 275 ml @ 183.708 mls/hr Q12H IVPB 04/13/16 20:00 04/14/16 23:59 04/14/16 07:42 Rodriguez (Isma)Susie NP Apr 14, 2016 17:20
--- NOTE | 2016-04-14 17:48 | Infectious Diseases Prog Note ---
Assessment/Plan Assessment/Plan A: The patient is a 60-year-old female with Leukopenia Fever SP Sepsis, SP aspiration pneumonia CT: Consolidation of much of the visualized right lower lobe and tiny right- sided pleural effusion Probable UTI UCx : : MRSA Flu neg Wnd cx :GNR ( Colonizer ) Chronic Lt hip fracture deformity elevated CEA >> 8.8 Respiratory distress, SP CVA. SP PEG placement. History of anoxic brain damage. History of paraplegia. Seizure disorder. anemia. History of myocardial infarction. Hyperlipidemia. Hypertension. COPD. GERD DM Depression PLAN: DC IV cefepime and IV vancomycin d# 7 / Monitor cultures (blood, sputum). CBC Monitor BMP. Monitor chest x-ray Subjective Constitutional: Denies: anorexia, chills, drenching sweats, fatigue, fever, no symptoms, other Allergies: Coded Allergies: NO KNOWN DRUG ALLERGIES (Unverified Allergy, Unknown, 06/01/14) Objective Vital Signs Last 24 Hour Vital Signs Date Time Temp Pulse Resp B/P Pulse Ox O2 Delivery O2 Flow Rate FiO2 04/14/16 16:00 97.8 109 17 100/64 95 Nasal Cannula 2.0 04/14/16 11:45 97.7 117 16 145/98 96 Nasal Cannula 04/14/16 08:38 93 Nasal Cannula 4.0 36 04/14/16 08:38 Room Air 4.0 36 04/14/16 08:34 112 20 Nasal Cannula 4.0 04/14/16 08:30 97.0 114 20 105/76 96 Room Air 04/14/16 04:00 97.5 102 20 112/82 99 Venturi Mask 4.0 30 04/14/16 00:00 96.6 98 20 116/73 99 Venturi Mask 4.0 30 04/13/16 19:08 98 Venturi Mask 8.0 40 04/13/16 19:08 Venturi Mask 8.0 40 04/13/16 19:08 82 22 Venturi Mask 8.0 40 04/13/16 19:00 96.8 98 20 119/87 100 Nasal Cannula 5.0 Height (Feet): 5 Height (Inches): 2.00 Weight (Pounds): 160 HEENT: anicteric Respiratory/Chest: normal breath sounds Cardiovascular: normal rate Abdomen: soft, non tender Laboratory Tests Test 04/14/16 05:00 White Blood Count 2.6 K/UL (4.8-10.8) L Red Blood Count 3.11 M/UL (4.20-5.40) L Hemoglobin 9.9 G/DL (12.0-16.0) L Hematocrit 29.9 % (37.0-47.0) L Mean Corpuscular Volume 96 FL (80-99) Mean Corpuscular Hemoglobin 31.7 PG (27.0-31.0) H Mean Corpuscular Hemoglobin Concent 33.1 G/DL (32.0-36.0) Red Cell Distribution Width 16.5 % (11.6-14.8) H Platelet Count 136 K/UL (150-450) L Mean Platelet Volume 9.8 FL (6.5-10.1) Neutrophils (%) (Auto) % (45.0-75.0) Lymphocytes (%) (Auto) % (20.0-45.0) Monocytes (%) (Auto) % (1.0-10.0) Eosinophils (%) (Auto) % (0.0-3.0) Basophils (%) (Auto) % (0.0-2.0) Differential Total Cells Counted 100 Neutrophils % (Manual) 53 % (45-75) Lymphocytes % (Manual) 43 % (20-45) Monocytes % (Manual) 4 % (1-10) Eosinophils % (Manual) 0 % (0-3) Basophils % (Manual) 0 % (0-2) Band Neutrophils 0 % (0-8) Platelet Estimate Decreased L Platelet Morphology Normal Hypochromasia 1+ Anisocytosis 1+ Sodium Level 144 mEQ/L (135-145) Potassium Level 3.2 mEQ/L (3.4-4.9) L Chloride Level 105 mEQ/L (98-107) Carbon Dioxide Level 29 mEQ/L (20-30) Anion Gap 10 (5-15) Blood Urea Nitrogen 6 mg/dL (7-23) L Creatinine 0.3 mg/dL (0.5-0.9) L Estimat Glomerular Filtration Rate > 60 mL/min (>60) Glucose Level 144 mg/dL (74-106) H Calcium Level 7.7 mg/dL (8.6-10.2) L Phosphorus Level 3.1 mg/dL (2.5-4.8) Current Medications Medications (Trade) Dose Ordered Sig/Kimo Route PRN Reason Start Time Stop Time Status Last Admin Dose Admin Acetaminophen (Tylenol) 650 mg Q4H PRN ORAL FEVER 04/11/16 23:00 05/11/16 22:59 Albuterol/ Ipratropium (DuoNeb 0.5-3(2.5)mg/3ml) 3 ml Q4H PRN HHN Shortness of Breath 04/11/16 23:00 04/16/16 22:59 Cefepime HCl/ Dextrose (Maxipime/D5W) 110 ml @ 220 mls/hr EVERY 12 HOURS IV 04/12/16 09:00 04/14/16 23:59 04/14/16 09:47 Clonidine HCl (Catapres) 0.1 mg Q6H PRN GT For High Blood Pressure 04/11/16 23:00 05/11/16 22:59 Dextrose (Dextrose 50%) STAT PRN IV Hypoglycemia 04/11/16 23:00 05/11/16 22:59 Divalproex Sodium (Depakote Sprinkles) 500 mg Q8HR GT 04/12/16 06:00 05/12/16 05:59 04/14/16 15:03 Heparin Sodium (Porcine) (Heparin 5000 units/ml) 5,000 units EVERY 12 HOURS SUBQ 04/12/16 09:00 05/12/16 08:59 Levetiracetam 1500 mg 1,500 mg Q12HR GT 04/12/16 21:00 05/12/16 08:59 04/14/16 09:48 Lorazepam (Ativan 2mg/ml 1ml) 2 mg Q2H PRN IV For Anxiety 04/11/16 23:00 04/18/16 22:59 Morphine Sulfate (Morphine Sulfate) 4 mg Q4H PRN IVP Severe Pain (Pain Scale 7-10) 04/11/16 23:00 04/18/16 22:59 Ondansetron HCl (Zofran) 4 mg Q6H PRN IVP Nausea & Vomiting 04/11/16 23:00 05/11/16 22:59 Pantoprazole (Protonix) 40 mg DAILY IVP 04/12/16 09:00 05/12/16 08:59 04/14/16 09:48 Polyethylene Glycol (Miralax) 17 gm DAILYPRN PRN ORAL Constipation 04/11/16 23:00 05/11/16 22:59 Sodium Chloride 1,000 ml @ 50 mls/hr Q20H IV 04/11/16 23:00 05/11/16 22:59 04/14/16 11:22 Vancomycin HCl (Vanco rx to dose) 1 ea DAILY PRN MISC . 04/12/16 09:00 05/12/16 08:59 Vancomycin HCl/ Dextrose (Vancomycin/D5W) 275 ml @ 183.708 mls/hr Q12H IVPB 04/13/16 20:00 04/14/16 23:59 04/14/16 07:42 DEIDRA RAMOS M.D. Apr 14, 2016 17:47
--- NOTE | 2016-04-17 09:29 | Discharge Summary ---
Discharge Summary Hospital Course Date of Admission Apr 09, 2016 at 11:19 Date of Discharge Apr 14, 2016 at 17:05 Admitting Diagnosis septic shock, pneumonia HPI Joselyn Galaviz is a 60 year old female who was admitted on Apr 09, 2016 at 11:19 for Septic,Shock,Pneumonia Hospital Course dc summary dictated # [id number] Discharge Medications New Medications: Cefepime Hcl/Dextrose, Iso-Osm (Cefepime 1 Gm Injection) 1 Gm/50 Ml Froz.piggy 1 GM IV DAILY for 3 Days, BAG Vancomycin Hcl/D5w (Vancomycin-D5w 1 G/250 Ml) 1 Gm/250 Ml Plast..bag 1 GM IVPB Q24H for 3 Days, BAG Continued Medications: Carvedilol (Coreg) 25 Mg Tab 25 MG GT EVERY 12 HOURS, TAB Clonidine Hcl* (Catapres*) 0.1 Mg Tablet 0.1 MG GT EVERY 6 HOURS PRN for For High Blood Pressure, TAB Divalproex Sodium (Depakote Sprinkle) 125 Mg Cap.sprink 500 MG GT Q8HR, CAP Heparin Sod (Porcine) (Heparin Sodium*) 5 000/1 Ml Vial 5000 UNITS SUBQ EVERY 12 HOURS, VIAL Insulin Aspart (Novolog) 100 Unit/1 Ml Cartridge 100 UNIT SQ Q6HR Levetiracetam (Keppra) 1,000 Mg Tablet 1500 MG ORAL Q12HR, #30 TAB 0 Refills Lorazepam* (Ativan*) 2 Mg/1 Ml Vial 2 MG IV Q1HR PRN for seizure, VIAL Ondansetron* (Zofran*) 4 Mg/2 Ml Vial 4 MG IV Q6H PRN for Nausea & Vomiting, VIAL Polyethylene Glycol 3350* (Miralax*) 17 Gm Powd.pack 17 GM ORAL HS PRN for Constipation, PACKET Zinc Sulfate (Zinc Sulfate) 220 Mg Tablet 220 MG GT DAILY, #30 TAB 0 Refills Zolpidem Tartrate* (Ambien*) 5 Mg Tablet 5 MG ORAL BEDTIME PRN for Insomnia, TAB Discharge Condition Upon Discharge: stable Discharge Disposition Patient was discharged to SNF Discharge Diagnoses: Rodriguez (Isma)Susie NP Apr 17, 2016 09:29
--- NOTE | 2016-04-17 22:39 | Discharge Summary 2 SIG ---
DATE OF ADMISSION: 04/09/2016 DATE OF DISCHARGE: 04/14/2016 REASON FOR ADMISSION: 60 years old chronically ill and debilitated female with multiple chronic comorbidities [facility] with [facility] and hypoxia. The patient with multiple medical comorbidities including COPD, hypertension, paraplegia, history of CVA, and heart attack. The patient at baseline debilitated, nonverbal and bedridden. The patient noted to have a fever of 103 degrees in the facility and was sent to the hospital for further evaluation. The patient DNR/DNI status with use of IV treatment and antibiotic. Workup in the emergency room, revealed EKG with sinus tachycardia. No PVC. No ectopy. The patient with critically low blood pressure on admission 87/51 and evidence of hypoxemia. The patient had no leukocytosis. Lactic acid was elevated at 3.0. The patient was tachycardic and tachypneic. Tachycardia -110 to 120 and respiratory rate up to 24. The patient initially was placed on 100% nonrebreathing mask and subsequently placed on the BiPAP, started on the IV fluids in the emergency department and transferred for further management to the hospital. ADMITTING DIAGNOSIS: 1.Septic shock 2.Severe sepsis HOSPITAL STAY: The patient admitted to [facility]. The patient was placed on the BiPAP. The patient continued on the IV fluids. Blood pressure responded to IV hydration and improved. There was no need for pressors. Septic workup initiated. The patient started on empiric antibiotics. Infectious Disease doctor followed. Blood culture negative. Urine culture grew MRSA. Influenza screen negative. Sacral decubitus wound grew MRSA, VRE, and E. coli. Infectious Disease doctor closely followed along with GI specialist. The patient eventually was able to be weaned from the BiPAP and placed on oxygen via nasal cannula. Stable respiratory status prior to discharge. Initial chest x-ray revealed basilar atelectasis. Subsequent chest x-ray revealed improvement in basilar atelectasis. The patient likely to have aspiration pneumonia. Sputum was not collected. The patient was empirically treated for it. Strict aspiration precautions were maintained. The patient was able to tolerate tube feeding. Initially high residual, improved with Reglan. Infectious Disease doctor recommended three more days of IV antibiotic at the skilled facility. GI specialist was also involved in the care of this patient. CT abdomen and pelvis revealed no definite acute abdominal pathology, but the CT of the abdomen and pelvis actually revealed evidence of consolidation in the right lower lung. DVT and GI prophylaxis provided. Seizure precautions were maintained. Keppra and Depakote were continued. No seizure activity while in the hospital. Bowel regimen instituted. Pain management provided. Wound care provided. Wound care as per the wound care nurse recommendations. Venous Duplex of bilateral lower extremities was negative. GI followed for elevated CEA. Iron panel was unremarkable. Due to the DNR/DNI status, no gastrointestinal procedure was planned, GI recommended outpatient GI procedure if family agreed to it. Stool OB on this admission uncollected. On previous admission stool OB was negative. The patient also noted to have mild pancytopenia: with WBC of 2.6 upon discharge, platelets of 136,000, hemoglobin 9.9, and hematocrit 29.9, possibly occult malignancy. GI specialist recommend outpatient workup with oncologist if durable power of civil rights attorney/son wants to proceed with it. DISCHARGE DIAGNOSES: 1. Septic shock,- resolved. 2. Sepsis. 3. Aspiration pneumonia. 4. Urinary tract infection. 5. Acute respiratory failure requiring BiPAP, -resolved. 6. Dementia. 7. History of cerebrovascular accident. 8. Dysphagia, gastrostomy tube status. 9. Seizure disorder. 10. Anoxic encephalopathy. 11. Sacral decubitus, present on admission. 12. Anemia. 13. Elevated CEA. 14. Pancytopenia. 15. Functional quadriplegia. 16. Chronic obstructive pulmonary disease. DISCHARGE MEDICATIONS: See medication reconciliation list. Continue antibiotics for 3 more days. DISCHARGE INSTRUCTIONS: [facility] As mentioned above, recommended outpatient GI procedure for elevated CEA and workup for anemia as well as Hematology/Oncology evaluation due to the leukopenia and pancytopenia. However, the patient DNR/DNI status with multiple medical comorbidities, all consultants recommended to consider symptomatic treatment and comfort measures. Aida Lopez M.D. I have been assigned to dictate discharge summary on this account and I was not involved in the patient's management. Susie LarsonGricelda zaldivar DR: Festus JOB#: [id number] CC: [email or web address]
--- NOTE | 2016-05-08 16:34 | Diagnostic Imaging Report ---
Indications: Long-term central IV access required for intravenous therapy Technique: Procedure performed by Dr. Brower. The procedure indications, risks, and alternatives were explained to the patient who understands and gives consent to proceed. Strict aseptic technique was utilized, including hand washing, use of hat and mask, use of sterile gown and gloves, sterile ultrasound gel and probe cover, prepping of right arm skin with 2% chlorhexidine solution, and application of full-body sterile barrier over this area. Skin and subcutaneous soft tissues were infiltrated with 1% lidocaine and sodium bicarbonate. A small dermatotomy was made, through which the larger of two patent, adequate size right brachial veins was punctured percutaneously under direct sonographic guidance with a 21-gauge needle. Exchange was made over a 0.018 inch guidewire for a 5 Serbian peel-away sheath. A T3 MOTION Power-PICC 5 Serbian dual lumen central venous catheter was cut to appropriate length, then advanced through the sheath over the guidewire under direct fluoroscopic guidance into the superior vena cava. Guidewire and sheath were removed. Both catheter ports were aspirated, then flushed with heparinized saline. Final image was obtained. Catheter was secured the skin with adhesive dressing. Patient tolerated procedure well without immediate complications. Total fluoroscopy time: 0.3 minutes. Dose-area product: 6.1 dGy-cm2 Findings: Final image demonstrates tip of the central venous catheter at the level of superior vena cava-right atrial junction, 36 cm in from the skin. Both ports aspirate and flush freely. IMPRESSION:? Placement by Dr. Brower of peripherally inserted central venous catheter via right brachial vein, working well.
== END 2016-04-14 17:05 | DRG 720 ==
LOC: EDBD 19:39 → EMR 20:00 → EDBEDREQ 22:12 → 2W 04-09 11:19 → EDBEDREQ 04-09 11:57 → 4E 04-11 23:12
PROC: 5A09457 Assistance with Respiratory Ventilation, 24-96 Consecutive Hours, Continuous Positive Airway Pressure (ICD-10-PCS; principal; 2016-04-09)
PROC: 30233N1 Transfusion of Nonautologous Red Blood Cells into Peripheral Vein, Percutaneous Approach (ICD-10-PCS; 2016-04-11)
DX: A41.9 Sepsis, unspecified organism (principal); J96.01 Acute respiratory failure with hypoxia; R65.21 Severe sepsis with septic shock; J69.0 Pneumonitis due to inhalation of food and vomit; G93.1 Anoxic brain damage, not elsewhere classified; L89.154 Pressure ulcer of sacral region, stage 4; L89.514 Pressure ulcer of right ankle, stage 4; D61.818 Other pancytopenia; R13.10 Dysphagia, unspecified; L89.894 Pressure ulcer of other site, stage 4; L89.524 Pressure ulcer of left ankle, stage 4; L89.624 Pressure ulcer of left heel, stage 4; G40.911 Epilepsy, unspecified, intractable, with status epilepticus; G82.20 Paraplegia, unspecified; E11.9 Type 2 diabetes mellitus without complications; F32.9 Major depressive disorder, single episode, unspecified; Z66 Do not resuscitate; Z43.1 Encounter for attention to gastrostomy; Z86.73 Personal history of transient ischemic attack (TIA), and cerebral infarction without residual deficits; N39.0 Urinary tract infection, site not specified; D64.9 Anemia, unspecified; R97.0 Elevated carcinoembryonic antigen [CEA]; R53.2 Functional quadriplegia; J44.9 Chronic obstructive pulmonary disease, unspecified; I25.2 Old myocardial infarction; E78.5 Hyperlipidemia, unspecified; K21.9 Gastro-esophageal reflux disease without esophagitis; E88.09 Other disorders of plasma-protein metabolism, not elsewhere classified; B95.62 Methicillin resistant Staphylococcus aureus infection as the cause of diseases classified elsewhere
CPT/HCPCS: 36415; 36569; 71010; 74177; 76937; 80048; 80053; 80069; 80202; 80299; 81003; 82270; 82378; 82550; 82553; 82607; 82746; 82962; 83540; 83550; 83605; 83615; 83735; 84100; 84484; 85007; 85025; 85044; 85060; 85610; 85651; 85730; 86710; 86850; 86900; 86901; 86920; 87040; 87070; 87081; 87086; 87181; 87205; 93005; 93970; 94660; 94664; 94760

== ENCOUNTER 2016-04-26 00:10 | Inpatient (IN) | payer OTHER ==
[~2016-04-26] VITALS: Ht 167.6 cm; Wt 69.4 kg
[2016-04-26] VITALS (8 sets, daily range): BP systolic 106–169; BP diastolic 50–95
[~2016-04-26 00:10] MED LIST changes: +CEFEPIME 11 GM/50 ML IV
[2016-04-26] MEDS ORDERED: Vancomycin 1.5gm/D5W 300ml 325 ML IVPB ONE (01:15)
[2016-04-26 02:06] LABS: APPEARANCE,URINE CLOUDY; KETONES,URINE NEGATIVE (NEGATIVE); NITRITE,URINE NEGATIVE (NEGATIVE); PH,URINE 9 (4.5-8.0); PROTEIN,URINE 2+ (NEGATIVE); UROBILINOGEN,URINE NORMAL MG/DL (0.0-1.0)
[2016-04-26 02:13] LABS: MEAN CORPUSCULAR HEMOGLOBIN 31.5 PG (27.0-31.0); MEAN CORPUSCULAR HGB CONC 32.2 G/DL (32.0-36.0); MEAN CORPUSCULAR VOLUME 98 FL (80-99); MEAN PLATELET VOLUME 6.9 FL (6.5-10.1); PLATELET COUNT 454 K/UL (150-450); RED BLOOD COUNT 4.96 M/UL (4.20-5.40); RED CELL DISTRIBUTION WIDTH 16.4 % (11.6-14.8)
[2016-04-26 02:14] LABS: WHITE BLOOD COUNT 24.4 K/UL (4.8-10.8)
[2016-04-26 02:16] LABS: LEUKOCYTE ESTERASE ,URINE 1+ (NEGATIVE)
[2016-04-26 02:17] LABS: BACTERIA,URINE FEW /HPF; RBC,URINE 0-2 /HPF (0 - 2); SQUAMOUS EPITHELIAL CELL,UR FEW /LPF (NONE/OCC)
[2016-04-26 02:18] LABS: AMORPHOUS SEDIMENT,UR MANY /LPF; TRIPLE PHOSPHATE CRYSTAL,UR MANY /LPF
[2016-04-26 02:19] LABS: ALANINE AMINOTRANSFERASE 6 U/L (3-33); ALBUMIN/GLOBULIN RATIO 0.6 (1.0-2.7); ANION GAP 17 (5-15); ASPARTATE AMINO TRANSFERASE 17 U/L (5-40); CALCIUM 9.7 mg/dL (8.6-10.2); CARBON DIOXIDE 25 mEQ/L (20-30); CHLORIDE 97 mEQ/L (98-107); CREATININE 0.7 mg/dL (0.5-0.9); GLOMERULAR FILTRATION RATE > 60 mL/min (>60); HEMOLYSIS 10; POTASSIUM 4.9 mEQ/L (3.4-4.9); SODIUM 139 mEQ/L (135-145); TOTAL PROTEIN 8.5 g/dL (6.6-8.7)
[2016-04-26 02:22] LABS: TROPONIN I < 0.30 ng/mL (<=0.30)
[2016-04-26 02:23] LABS: REFLEX LACTIC ACID YES OR NO YES
[2016-04-26 02:32] LABS: CKMB 1.7 ng/mL (< 3.8)
[2016-04-26] MEDS ORDERED: Azithromycin 500 MG in NS 275 ML IV ONE (02:45)
[2016-04-26] MEDS ORDERED: Cefepime HCl 1 GM in NS 55 ML IV ONE (02:45)
[2016-04-26] MEDS ORDERED: Cefepime 1gm vial ONE (02:52)
[2016-04-26 03:02] LABS: BAND NEUTROPHILS % (MANUAL) 25 % (0-8); BASOPHILS % (MANUAL) 0 % (0-2); EOSINOPHILS % (MANUAL) 0 % (0-3); LYMPHOCYTES % (MANUAL) 1 % (20-45); NEUTROPHILS % (MANUAL) 68 % (45-75); PLATELET ESTIMATE ADEQUATE; TOTAL CELLS COUNTED 100
[2016-04-26 03:03] LABS: PLATELET MORPHOLOGY NORMAL
--- NOTE | 2016-04-26 03:40 | Emergency Room Report ---
History of Present Illness General Chief Complaint: General Complaint Source: Family Member, EMS Present Illness HPI 60-year-old female sent to ER for evaluation. Per EMS patient was found to be tachycardic at her convalescent home today. Patient is DO NOT RESUSCITATE, selective treatment only. O2 saturations were in the 80s. Improved on bagging. Per EMS patient believed to have aspirated today. Patient is lethargic and unable to provide any additional history at this time. No reported fevers or chills. No reported chest pain. No other aggravating relieving factors. No other associated symptoms Allergies: Coded Allergies: NO KNOWN DRUG ALLERGIES (Unverified Allergy, Unknown, 06/01/14) Patient History Past Medical History: DM, HTN Past Surgical History: none Pertinent Family History: none Social History: Denies: alcohol use, drug use, smoking Last Menstrual Period: NONE Now: No Immunizations: UTD Reviewed Nursing Documentation: PMH: Agreed, PSxH: Agreed Nursing Documentation-PMH Hx Hypertension: Yes - HYPERLIPIDEMIA Hx Pacemaker: No Hx COPD: Yes - ARF Hx Diabetes: Yes Hx Cancer: No Hx Dialysis: No Hx Epilepsy: Yes Hx Tremors: Yes Hx Aphasia: Yes Hx Dysphasia: Yes Hx Weakness: Yes Review of Systems All Other Systems: negative except mentioned in HPI Physical Exam Vital Signs Date Time Temp Pulse Resp B/P Pulse Ox O2 Delivery O2 Flow Rate FiO2 04/26/16 00:14 170 22 160/96 100 Ambu-Bag 04/26/16 02:08 100 Sp02 EP Interpretation: reviewed, normal General Appearance: moderate distress, lethargic Head: normocephalic Eyes: bilateral eye PERRL, bilateral eye normal inspection ENT: normal ENT inspection Neck: normal inspection Respiratory: accessory muscle use, crackles Cardiovascular #1: tachycardia Gastrointestinal: normal inspection Rectal: deferred Genitourinary: no CVA tenderness Musculoskeletal: normal inspection Neurologic: other - altered Psychiatric: other - altered Skin: normal inspection Lymphatic: normal inspection Procedures Critical Care Time Critical Care Time i. I feel this is a highly complex case requiring extensive working including EKG/Rhythm strip, Xray/CT/US, Blood/urine lab work, repeat exams while in ED, and administration of strong opiates/narcotics for pain control, admission to hospital or close patient follow up. Total time: 30 min bedside evaluation and treatment excludes procedures (EKG). Reason for critical care: Hypoxic, tachycardic Possible complications: hypotension, hypertension, RI, shock, arrhythmias, metabolic acidosis, end organ damage, respiratory failure. Interventions: Labs, IV fluids, EKG, chest x-ray, antibiotics, central line Course: Patient brought in for respiratory distress, tachycardia. Possible aspiration. Labs show significant leukocytosis, lactic elevated. Patient placed on BiPAP. Patient has poor IV access, right femoral line started. Given fluids, antibiotics Consultations: nursing staff, EMS, family Performed by: Dr Plata Tolerated well condition = critical j. because of unstable vital signs this patient had a condition that could potentially threaten life or limb. I feel this is a critical patient who required my full attention while patient was considered critical. Total Critical Care Time excluding procedures was greater than 35 minutes Central Line Central Line : Consent: Verbal Central Line Lumen: triple Maximal Sterile Barrier Tech: yes cap, yes mask, yes sterile gown, yes sterile gloves, yes large sterile sheet, yes hand hygiene, yes chlorhexidine prep Central Line Postion: femoral (R) Anesthesia: Lidocaine Complications: none Central Line Post Position: sutured, good blood return Attempts: One Patient Tolerated: Well Complications: None Medical Decision Making Diagnostic Impression: Primary Impression: Severe sepsis Additional Impressions: Aspiration pneumonia Qualified Codes: J69.0 - Pneumonitis due to inhalation of food and vomit Acute encephalopathy ER Course Hospital Course 60-year-old female presents to ED for tachycardia, respiratory distress, altered Differential diagnoses include: Pneumonia, UTI, sepsis, dehydration, RI/ unstable angina Clinical course Patient placed on stretcher. On electronic device monitor with tachycardia to the 160s. After initial history and physical, I ordered labs, IV fluids, EKG, chest x-ray , blood cultures, UA. Patient started on BiPAP She has poor IV access, right femoral line placed Labs - significant leukocytosis, lactic acid greater than 4, troponins negative , electrolytes ok, BNP elevated CXR - cardiomegaly EKG - sinus tachy, no acute ischemic changes Abx given. 30 mL per KG fluid bolus given. Respiratory status improved on BiPAP. Poor prognosis discussed with patient's son. He agrees that patient should remain DO NOT RESUSCITATE, DO NOT INTUBATE Case discussed with Dr Lopez and they agreed to admit patient to their service for further care and support I feel this is a highly complex case requiring extensive working including EKG/ Rhythm strip, Xray/CT/US, Blood/urine lab work, repeat exams while in ED, and administration of strong opiates/narcotics for pain control, admission to hospital or close patient follow up. Diagnosis - severe sepsis, aspiration pneumonia, acute encephalopathy Patient admitted to [facility] in critical condition Labs Test 04/26/16 01:25 04/26/16 01:32 04/26/16 02:50 White Blood Count 24.4 K/UL (4.8-10.8) Red Blood Count 4.96 M/UL (4.20-5.40) Hemoglobin 15.6 G/DL (12.0-16.0) Hematocrit 48.4 % (37.0-47.0) Mean Corpuscular Volume 98 FL (80-99) Mean Corpuscular Hemoglobin 31.5 PG (27.0-31.0) Mean Corpuscular Hemoglobin Concent 32.2 G/DL (32.0-36.0) Red Cell Distribution Width 16.4 % (11.6-14.8) Platelet Count 454 K/UL (150-450) Mean Platelet Volume 6.9 FL (6.5-10.1) Neutrophils (%) (Auto) % (45.0-75.0) Lymphocytes (%) (Auto) % (20.0-45.0) Monocytes (%) (Auto) % (1.0-10.0) Eosinophils (%) (Auto) % (0.0-3.0) Basophils (%) (Auto) % (0.0-2.0) Differential Total Cells Counted 100 Neutrophils % (Manual) 68 % (45-75) Lymphocytes % (Manual) 1 % (20-45) Monocytes % (Manual) 6 % (1-10) Eosinophils % (Manual) 0 % (0-3) Basophils % (Manual) 0 % (0-2) Band Neutrophils 25 % (0-8) Platelet Estimate Adequate Platelet Morphology Normal Red Blood Cell Morphology Normal Sodium Level 139 mEQ/L (135-145) Potassium Level 4.9 mEQ/L (3.4-4.9) Chloride Level 97 mEQ/L (98-107) Carbon Dioxide Level 25 mEQ/L (20-30) Anion Gap 17 (5-15) Blood Urea Nitrogen 25 mg/dL (7-23) Creatinine 0.7 mg/dL (0.5-0.9) Estimat Glomerular Filtration Rate > 60 mL/min (>60) Glucose Level 311 mg/dL (74-106) Lactic Acid Level 4.40 mmol/L (0.66-2.22) Calcium Level 9.7 mg/dL (8.6-10.2) Total Bilirubin 0.4 mg/dL (0.0-1.2) Aspartate Amino Transf (AST/SGOT) 17 U/L (5-40) Alanine Aminotransferase (ALT/SGPT) 6 U/L (3-33) Alkaline Phosphatase 99 U/L (35-104) Total Creatine Kinase 21 U/L (26-140) Creatine Kinase MB 1.7 ng/mL (< 3.8) Creatine Kinase MB Relative Index 8.0 Troponin I < 0.30 ng/mL (<=0.30) Pro-B-Type Natriuretic Peptide 3926 pg/mL (0-125) Total Protein 8.5 g/dL (6.6-8.7) Albumin 3.3 g/dL (3.5-5.2) Globulin 5.2 g/dL Albumin/Globulin Ratio 0.6 (1.0-2.7) Urine Color Yellow Urine Appearance Cloudy Urine pH 9 (4.5-8.0) Urine Specific [place] 1.015 (1.005-1.035) Urine Protein 2+ (NEGATIVE) Urine Glucose (UA) Negative (NEGATIVE) Urine Ketones Negative (NEGATIVE) Urine Occult Blood Negative (NEGATIVE) Urine Nitrite Negative (NEGATIVE) Urine Bilirubin Negative (NEGATIVE) Urine Urobilinogen Normal MG/DL (0.0-1.0) Urine Leukocyte Esterase 1+ (NEGATIVE) Urine RBC 0-2 /HPF (0 - 2) Urine WBC 2-4 /HPF (0 - 2) Urine Squamous Epithelial Cells Few /LPF (NONE/OCC) Urine Triple Phosphate Crystals Many /LPF (NONE) Urine Amorphous Sediment Many /LPF (NONE) Urine Bacteria Few /HPF (NONE) EKG Diagnostic Results Rate: tachycardiac Rhythm: NSR ST Segments: no acute changes ASA given to the pt in ED: No Rhythm Strip Diag. Results EP Interpretation: yes Rhythm: NSR, no PVC's, no ectopy Chest X-Ray Diagnostic Results EP Interpretation: Yes Findings: no consolidation, no effusion, no pneumothorax, no acute cardiopulmonary disease, other - cardiomegaly Number of Views: 1 Last Vital Signs Date Time Temp Pulse Resp B/P Pulse Ox O2 Delivery O2 Flow Rate FiO2 04/26/16 02:08 160 47 83 Facial 100 04/26/16 00:14 160/96 Status: improved Disposition: ADMITTED INPATIENT Condition: Critical Referrals: BISHOP LOPEZ (PCP) SANDY PLATA M.D. Apr 26, 2016 03:40
[2016-04-26] MEDS ORDERED: Azithromycin Inj IV ONE (04:03)
[2016-04-26] MEDS ORDERED: Nitroglycerin Subl 0.4mg tab (Bottle Of 25) SL PRN (07:00)
[2016-04-26] MEDS ORDERED: Mylanta II UD 30ml ORAL PRN (07:00)
[2016-04-26] MEDS ORDERED: Miralax 17gm pkt ORAL PRN (07:00)
[2016-04-26] MEDS ORDERED: DuoNeb 0.5-3(2.5)mg/3ml neb HHN PRN (07:00)
[2016-04-26 09:00] LABS: MAGNESIUM 2.2 mg/dL (1.7-2.5); PHOSPHORUS 4.2 mg/dL (2.5-4.8)
[2016-04-26] MEDS ORDERED: Cefepime HCl 1 GM in D5W 55 ML IV SCH (09:00)
[2016-04-26] MEDS: Pantoprazole Inj IVP SCH (09:33)
[2016-04-26] MEDS: Heparin 5000 units/ml inj SUBQ SCH ×2 (09:35→20:51)
[2016-04-26 10:47] LABS: ABG ALLEN TEST POSITIVE
[2016-04-26] MEDS ORDERED: NovoLOG Insulin Flexpen SUBQ SCH (11:30)
--- NOTE | 2016-04-26 11:47 | Diagnostic Imaging Report ---
Indication: Chest pain Technique: One view of the chest Comparison: 04/11/2016 Findings: Suboptimal inspiration with bibasilar atelectasis. Lungs and pleural spaces otherwise clear. Heart is borderline enlarged. Aorta is tortuous and ectatic. There are degenerative changes of the right shoulder Impression: Hypoventilatory exam with bibasilar atelectasis No acute process otherwise Borderline cardiomegaly This agrees with the preliminary interpretation provided by the emergency room physician
--- NOTE | 2016-04-26 12:21 | History and Physical ---
History of Present Illness General Reason for Hospitalization: General Complaint Present Illness HPI 60-year-old female with hx of CVA, PEG, bed bound, [facility] resident brought in by paramedics with CC of tachycardic . O2 saturations were in the 80s. Improved on bagging. Per EMS she was thought to have aspirated today. Patient is lethargic and unable to provide any additional history at this time. No reported fevers or chills. No reported chest pain. No other aggravating relieving factors. No other associated symptoms Allergies: Coded Allergies: NO KNOWN DRUG ALLERGIES (Unverified Allergy, Unknown, 06/01/14) Medication History Scheduled Acetaminophen (Acetaminophen), 650 MG PO Q4HR, (Reported) Carvedilol (Coreg), 25 MG GT EVERY 12 HOURS, (Reported) Cefepime Hcl/Dextrose, Iso-Osm (Cefepime 1 Gm Injection), 1 GM IV DAILY Collagenase Clostridium Hist. (Santyl), 1 APPLIC TP DAILY, (Reported) Divalproex Sodium (Depakote Sprinkle), 500 MG GT Q8HR, (Reported) Heparin Sod (Porcine) (Heparin Sodium*), 5,000 UNITS SUBQ EVERY 12 HOURS, ( Reported) Insulin Aspart (Novolog), 100 UNIT SQ Q6HR, (Reported) Levetiracetam (Keppra), 1,500 MG ORAL Q12HR, (Reported) Vancomycin Hcl/D5w (Vancomycin-D5w 1 G/250 Ml), 1 GM IVPB Q24H Zinc Sulfate (Zinc Sulfate), 220 MG GT DAILY, (Reported) Scheduled PRN Clonidine Hcl* (Catapres*), 0.1 MG GT EVERY 6 HOURS PRN for For High Blood Pressure, (Reported) Lorazepam* (Ativan*), 2 MG IV Q1HR PRN for seizure, (Reported) Ondansetron* (Zofran*), 4 MG IV Q6H PRN for Nausea & Vomiting, (Reported) Polyethylene Glycol 3350* (Miralax*), 17 GM ORAL HS PRN for Constipation, ( Reported) Zolpidem Tartrate* (Ambien*), 5 MG ORAL BEDTIME PRN for Insomnia, (Reported) Miscellaneous Medications Unable to Obtain Medications (Unable To Obtain Meds), (Reported) Patient History Healthcare decision maker Denilson Robles Resuscitation status Do Not Resuscitate Advanced Directive on File No Past Medical/Surgical History Past Medical/Surgical History: (1) G tube feedings (2) Anemia (3) Cerebral vascular disease (4) Seizure disorder Review of Systems All Other Systems: negative except mentioned in HPI Physical Exam General Appearance: WD/WN Lines, tubes and drains: peripheral HEENT: normocephalic, atraumatic Neck: non-tender, normal alignment Respiratory/Chest: chest wall non-tender, lungs clear Cardiovascular/Chest: normal peripheral pulses, normal rate Abdomen: normal bowel sounds, non tender Genitourinary/Rectal: normal genital exam Last 24 Hour Vital Signs Date Time Temp Pulse Resp B/P Pulse Ox O2 Delivery O2 Flow Rate FiO2 04/26/16 10:37 138 27 100 Facial 80 04/26/16 09:56 135 28 100 Facial 90 04/26/16 08:00 90 04/26/16 08:00 143 04/26/16 08:00 99.1 148 31 137/84 100 Bi-pap 100 04/26/16 05:30 98.7 140 26 106/73 99 Bi-pap 100 04/26/16 05:08 140 38 96 Facial 100 04/26/16 04:30 100.3 140 45 106/74 95 15.0 100 04/26/16 04:25 100.3 135 26 109/79 95 15.0 100 04/26/16 03:30 152 45 95 Facial 100 04/26/16 03:15 100.3 140 38 106/74 100 Bi-pap 100 04/26/16 02:08 160 47 83 Facial 100 04/26/16 00:25 165 55 169/95 95 Non-Rebreather 15.0 04/26/16 00:14 170 22 160/96 100 Ambu-Bag Intake and Output 04/25/16 04/26/16 19:00 07:00 Intake Total 0 ml Output Total 250 ml Balance -250 ml Intake Oral 0 ml Output Urine Total 250 ml Laboratory Tests Test 04/26/16 01:25 04/26/16 01:32 04/26/16 02:50 04/26/16 10:40 White Blood Count 24.4 K/UL (4.8-10.8) *H Red Blood Count 4.96 M/UL (4.20-5.40) Hemoglobin 15.6 G/DL (12.0-16.0) Hematocrit 48.4 % (37.0-47.0) H Mean Corpuscular Volume 98 FL (80-99) Mean Corpuscular Hemoglobin 31.5 PG (27.0-31.0) H Mean Corpuscular Hemoglobin Concent 32.2 G/DL (32.0-36.0) Red Cell Distribution Width 16.4 % (11.6-14.8) H Platelet Count 454 K/UL (150-450) H Mean Platelet Volume 6.9 FL (6.5-10.1) Neutrophils (%) (Auto) % (45.0-75.0) Lymphocytes (%) (Auto) % (20.0-45.0) Monocytes (%) (Auto) % (1.0-10.0) Eosinophils (%) (Auto) % (0.0-3.0) Basophils (%) (Auto) % (0.0-2.0) Differential Total Cells Counted 100 Neutrophils % (Manual) 68 % (45-75) Lymphocytes % (Manual) 1 % (20-45) L Monocytes % (Manual) 6 % (1-10) Eosinophils % (Manual) 0 % (0-3) Basophils % (Manual) 0 % (0-2) Band Neutrophils 25 % (0-8) H Platelet Estimate Adequate Platelet Morphology Normal Red Blood Cell Morphology Normal Sodium Level 139 mEQ/L (135-145) Potassium Level 4.9 mEQ/L (3.4-4.9) Chloride Level 97 mEQ/L (98-107) L Carbon Dioxide Level 25 mEQ/L (20-30) Anion Gap 17 (5-15) H Blood Urea Nitrogen 25 mg/dL (7-23) H Creatinine 0.7 mg/dL (0.5-0.9) Estimat Glomerular Filtration Rate > 60 mL/min (>60) Glucose Level 311 mg/dL (74-106) H Lactic Acid Level 4.40 mmol/L (0.66-2.22) H 3.00 mmol/L (0.66-2.22) H Calcium Level 9.7 mg/dL (8.6-10.2) Phosphorus Level 4.2 mg/dL (2.5-4.8) Magnesium Level 2.2 mg/dL (1.7-2.5) Total Bilirubin 0.4 mg/dL (0.0-1.2) Aspartate Amino Transf (AST/SGOT) 17 U/L (5-40) Alanine Aminotransferase (ALT/SGPT) 6 U/L (3-33) Alkaline Phosphatase 99 U/L (35-104) Total Creatine Kinase 21 U/L (26-140) L Creatine Kinase MB 1.7 ng/mL (< 3.8) Creatine Kinase MB Relative Index 8.0 Troponin I < 0.30 ng/mL (<=0.30) Pro-B-Type Natriuretic Peptide 3926 pg/mL (0-125) H Total Protein 8.5 g/dL (6.6-8.7) Albumin 3.3 g/dL (3.5-5.2) L Globulin 5.2 g/dL Albumin/Globulin Ratio 0.6 (1.0-2.7) L Urine Color Yellow Urine Appearance Cloudy Urine pH 9 (4.5-8.0) Urine Specific [place] 1.015 (1.005-1.035) Urine Protein 2+ (NEGATIVE) H Urine Glucose (UA) Negative (NEGATIVE) Urine Ketones Negative (NEGATIVE) Urine Occult Blood Negative (NEGATIVE) Urine Nitrite Negative (NEGATIVE) Urine Bilirubin Negative (NEGATIVE) Urine Urobilinogen Normal MG/DL (0.0-1.0) Urine Leukocyte Esterase 1+ (NEGATIVE) H Urine RBC 0-2 /HPF (0 - 2) Urine WBC 2-4 /HPF (0 - 2) Urine Squamous Epithelial Cells Few /LPF (NONE/OCC) Urine Triple Phosphate Crystals Many /LPF (NONE) H Urine Amorphous Sediment Many /LPF (NONE) H Urine Bacteria Few /HPF (NONE) Arterial Blood pH 7.430 (7.350-7.450) Arterial Blood Partial Pressure CO2 39.0 mmHg (35.0-45.0) Arterial Blood Partial Pressure O2 131.7 mmHg (75.0-100.0) H Arterial Blood HCO3 25.3 mmol/L (22.0-26.0) Arterial Blood Oxygen Saturation 97.9 % (92.0-98.0) Arterial Blood Base Excess 1.0 Reji Test Positive Height (Feet): 5 Height (Inches): 6.00 Weight (Pounds): 153 Medications Current Medications Medications (Trade) Dose Ordered Sig/Kimo Route PRN Reason Start Time Stop Time Status Last Admin Dose Admin Acetaminophen (Tylenol) 650 mg Q4H PRN ORAL T>100.5 04/26/16 07:00 05/26/16 06:59 Al Hydroxide/Mg Hydroxide (Mylanta II) 30 ml Q6H PRN ORAL dyspepsia 04/26/16 07:00 05/26/16 06:59 Albuterol/ Ipratropium 3 ml 3 ml Q4H PRN HHN Shortness of Breath 04/26/16 07:00 05/01/16 06:59 Cefepime HCl/ Dextrose (Maxipime/D5W) 55 ml @ 110 mls/hr EVERY 12 HOURS IV 04/26/16 09:00 05/03/16 08:59 04/26/16 09:33 Dextrose (Dextrose 50%) STAT PRN IV Hypoglycemia 04/26/16 07:00 05/26/16 06:59 Divalproex Sodium (Depakote Sprinkles) 500 mg Q8HR GT 04/26/16 14:00 05/26/16 13:59 Heparin Sodium (Porcine) (Heparin 5000 units/ml) 5,000 units EVERY 12 HOURS SUBQ 04/26/16 09:00 05/26/16 08:59 04/26/16 09:35 Insulin Aspart (NovoLOG) EVERY 6 HOURS SUBQ 04/26/16 12:00 05/26/16 11:59 Levetiracetam (Keppra) 1,500 mg Q12HR ORAL 04/26/16 09:00 05/26/16 08:59 04/26/16 09:33 Nitroglycerin (Ntg) 0.4 mg Q5M PRN SL Prn Chest Pain 04/26/16 07:00 05/26/16 06:59 Ondansetron HCl (Zofran) 4 mg Q6H PRN IVP Nausea & Vomiting 04/26/16 07:00 05/26/16 06:59 Pantoprazole 40 mg 40 mg DAILY IVP 04/26/16 09:00 05/26/16 08:59 04/26/16 09:33 Polyethylene Glycol (Miralax) 17 gm DAILYPRN PRN ORAL Constipation 04/26/16 07:00 05/26/16 06:59 Sodium Chloride (Sodium Chloride 1000ml bag) 1,000 ml @ 100 mls/hr Q10H IV 04/26/16 10:00 05/26/16 09:59 04/26/16 09:34 Temazepam (Restoril) 15 mg HSPRN PRN ORAL Insomnia 04/26/16 21:00 05/03/16 20:59 Vancomycin HCl 1 ea 1 ea DAILY PRN MISC Per rx protocol 04/26/16 07:00 05/26/16 06:59 Vancomycin HCl/ Dextrose (Vancomycin/D5W) 275 ml @ 183.708 mls/hr Q12HR@0200,1400 IVPB 04/26/16 14:00 05/01/16 13:59 Assessment/Plan Problem List: (1) Acute respiratory failure ICD Codes: J96.00 - Acute respiratory failure, unspecified whether with hypoxia or hypercapnia SNOMED: 57885629 (2) Severe sepsis ICD Codes: A41.9 - Sepsis, unspecified organism; R65.20 - Severe sepsis without septic shock SNOMED: 01103142 (3) Aspiration pneumonia ICD Codes: J69.0 - Pneumonitis due to inhalation of food and vomit SNOMED: 308726072 Qualifiers: Qualified Codes: J69.0 - Pneumonitis due to inhalation of food and vomit (4) G tube feedings ICD Codes: Z93.1 - Gastrostomy status SNOMED: 181862620, 452447173 (5) Cerebral vascular disease ICD Codes: I67.9 - Cerebrovascular disease, unspecified SNOMED: 32626095 (6) Seizure disorder ICD Codes: G40.909 - Epilepsy, unspecified, not intractable, without status epilepticus SNOMED: 754726079 (7) Anemia ICD Codes: D64.9 - Anemia SNOMED: 838268105 Respiratory: monitor respiratory rate, adjust FIO2, CXR Cardiac: continue to monitor HR/BP Renal: F/U I&O, keep IV fluid Infectious Disease: check cultures, continue antibiotics Gastrointestinal: continue feedings/current rate Endocrine: check TSH, continue sliding scale insulin Hematologic: monitor H/H, transfuse if hgb<8.5 Neurologic: keep patient comfortable Prophylaxis: Protonix Disposition: keep in ICU Notes Reviewed: renal Discussed with: consultants, case resource manager BISHOP PENA Apr 26, 2016 12:20
[2016-04-26] MEDS: NovoLOG Insulin Flexpen SUBQ SCH ×2 (13:01→17:55)
[2016-04-26] MEDS: Vancomycin 750mg/D5W 275ml IVPB SCH ×2 (13:45)
[2016-04-26] MEDS: Depakote 125mg Sprinkles GT SCH ×2 (13:45→21:33)
[2016-04-26] MEDS ORDERED: Tubing IV Secondary IV ONE (15:17)
--- NOTE | 2016-04-26 15:26 | Consultation ---
Consult Note Consult Note ID CONSULT: Dict# [id number] Assessment/Plan ASSESSMENT: 60 y/o female with: // Possible recurrent aspiration PNA - SCx pending - CXR: Hypoventilatory exam with bibasilar atelectasis. No acute process otherwise // Multiple decubiti POA, not grossly infected - surveillance WCx pending // Recent MRSA UTI SP Rx // Severe sepsis - improved lactic acidosis // Leukocytosis / bandemia // Low grade fever // Acute respiratory failure / BiPAP // Chronic left hip fx // Thrombocytosis // h/o CVA // Dysphagia SP PEG // Functional quadriplegia / bedbound // NKDA // DNR PLAN: - continue empiric IV vancomycin d# 1, broaden cefepime d# 1 to meropenem d# 1 given recent cefepime exposure, add empiric flagyl ( 2/3 SP IV vancomycin, cefepime d# 7 / 7 ) - f/u cultures, check C.difficile - monitor CBC, temperatures - monitor BMP - monitor CXR - wound care - aspiration precautions Thanks! Will follow AUGUSTO CASON Apr 26, 2016 15:26
--- NOTE | 2016-04-26 15:36 | Wound Care Consultation ---
Wound Assessment Wound Assessment #1: Wound Present on Admission: Yes New Wound: No Status Change of Wound: No Wound Location Body Site Modif: right Wound Location Body Site: metatarsal head - 1st Wound Type: pressure ulcer Angelo Test: Does not Angelo Pressure Ulcer Stage: III Wound Thickness: Full Thickness Wound Length: 3.0 Wound Width: 3.0 Wound Depth: 0.1 Percent of Wound Nesco/Red: 100 Wound Drainage Description: Serosanguineous Wound Drainage Amount: Scant Wound Drainage Odor: None/Absent Tissue Surrounding Wound: Macerated Wound General Appearance: Reddened, Draining Wound Assessment #2: Wound Number: #2 Wound Present on Admission: Yes New Wound: No Status Change of Wound: No Wound Location Body Site Modif: right Wound Location Body Site: malleolus/ankle Wound Type: pressure ulcer Angelo Test: Does not Angelo Pressure Ulcer Stage: IV/unstageable Wound Thickness: Full Thickness Wound Length: 3.5 Wound Width: 2.5 Wound Depth: 0.3 Percent of Wound Nesco/Red: 100 Wound Drainage Description: Serosanguineous Wound Drainage Amount: Moderate Wound Drainage Odor: None/Absent Tissue Surrounding Wound: Macerated Wound General Appearance: Reddened, Draining Wound Assessment #3: Wound Number: #3 Wound Present on Admission: Yes New Wound: No Status Change of Wound: No Wound Location Body Site Modif: right Wound Location Body Site: metatarsal head - between 2nd and 3rd Wound Type: pressure ulcer Angelo Test: Does not Angelo Pressure Ulcer Stage: IV/unstageable Wound Thickness: Full Thickness Wound Length: 3.0 Wound Width: 2.5 Wound Depth: utd Percent of Wound Black/Brown: 100 Wound Drainage Amount: None Wound Drainage Odor: None/Absent Tissue Surrounding Wound: Indurated Wound General Appearance: Blackened Wound Assessment #4: Wound Number: #4 Wound Present on Admission: Yes New Wound: No Status Change of Wound: No Wound Location Body Site Modif: left Wound Location Body Site: malleolus/ankle Wound Type: pressure ulcer Angelo Test: Does not Angelo Pressure Ulcer Stage: IV/unstageable Wound Thickness: Full Thickness Wound Length: 2.5 Wound Width: 3.5 Wound Depth: utd Percent of Wound Black/Brown: 100 Wound Drainage Description: Serosanguineous Wound Drainage Amount: Scant Wound Drainage Odor: None/Absent Tissue Surrounding Wound: Indurated Wound General Appearance: Blackened Wound Assessment #5: Wound Number: #5 Wound Present on Admission: Yes New Wound: No Status Change of Wound: No Wound Location Body Site Modif: left Wound Location Body Site: metatarsal head - 5th Wound Type: pressure ulcer Angelo Test: Does not Angelo Pressure Ulcer Stage: IV/unstageable Wound Thickness: Full Thickness Wound Length: 4.0 Wound Width: 2.5 Wound Depth: utd Percent of Wound Nesco/Red: 80 Percent of Wound Black/Brown: 20 Wound Drainage Description: Serosanguineous Wound Drainage Amount: Scant Wound Drainage Odor: None/Absent Tissue Surrounding Wound: Macerated Wound General Appearance: Reddened, Draining Wound Assessment #6: Wound Number: #6 Wound Present on Admission: Yes New Wound: No Status Change of Wound: No Wound Location Body Site Modif: mid Wound Location Body Site: sacral Wound Type: pressure ulcer Angelo Test: Does not Angelo Pressure Ulcer Stage: IV/unstageable Wound Thickness: Full Thickness Wound Length: 1.0 Wound Width: 1.0 Wound Depth: 1.0 Percent of Wound Nesco/Red: 100 Wound Drainage Description: Serosanguineous Wound Drainage Amount: Scant Wound Drainage Odor: None/Absent Tissue Surrounding Wound: Macerated Wound General Appearance: Reddened, Draining Wound Assessment #7: Wound Number: #7 Wound Present on Admission: Yes New Wound: No Status Change of Wound: No Wound Location Body Site: perineal area Wound Type: chemical burn Angelo Test: Does not Angelo Wound Drainage Amount: None Wound Drainage Odor: None/Absent Tissue Surrounding Wound: Erythemic Wound General Appearance: Reddened Wound Comment #1 Right 1st metatarsal head stage III pressure ulcer #2 Right malleolus stage IV pressure ulcer #3 Right between 2nd and 3rd metatarsal head with black eschar adhered to wound bed #4 Left malleolus stage IV/unstageable pressure ulcer #5 Left 5th metatarsal head stage IV/unstagable pressure ulcer #6 Chemical burn on perineal area #7 Sacral stage IV pressure ulcer Recommendation -Keep clean and dry -Turn and reposition -Low air loss overlay mattress -Optimize nutrition -Offload both heels -Heel protector on both heels -Local wound care as ordered -Assess and f/u accordingly for any changes GEBREMEDKYN,CARMELITA RN Apr 26, 2016 15:36
[2016-04-26] MEDS: metroNIDAZOLE 500mg tab PEG SCH ×2 (16:19→21:33)
[2016-04-26 16:45] LABS: REFLEX LACTIC ACID YES OR NO YES
[2016-04-26] MEDS: Meropenem 1 GM in NS 110 ML IVPB SCH (17:56)
--- NOTE | 2016-04-26 20:49 | Consultation ---
DATE OF CONSULTATION: 04/26/2016 INFECTIOUS DISEASE CONSULTATION: CONSULTING PHYSICIAN: Zi Shelby M.D. REQUESTING PHYSICIAN: Aida Lopez M.D. REASON FOR CONSULTATION: Severe sepsis. HISTORY OF PRESENT ILLNESS: This is a 60-year-old female with multiple medical problems and frequent hospital re-admissions, admitted with tachycardia and possible recurrent aspiration pneumonia. She meets severe sepsis criteria. Cultures are pending. She has been started on empiric vancomycin and cefepime. Chest x-ray showed bibasilar atelectasis. ID is now consulted to assist in management. PAST MEDICAL HISTORY: 1. Stroke. 2. Dysphasia. 3. Functional quadriplegia and bedbound. 4. Chronic left hip fracture. 5. Recurrent pneumonia. 6. Recurrent urinary tract infections. 7. Multiple decubiti. PAST SURGICAL HISTORY: PEG tube placement. ALLERGIES: No known drug allergies. MEDICATIONS: 1. Vancomycin. 2. Cefepime. 3. Depakote. 4. Keppra. Please refer to [facility] for additional medications. FAMILY HISTORY: Noncontributory. SOCIAL HISTORY: The patient is a resident of [facility] with frequent hospital re-admissions. REVIEW OF SYSTEMS: Unable to obtain. PHYSICAL EXAMINATION: VITAL SIGNS: Maximum temperature is 100.3 degrees, blood pressure 106/59, heart rate 137, respiratory rate 31, and saturating 100% on BiPAP. GENERAL: The patient is in mild respiratory distress on BiPAP. CARDIOVASCULAR: Tachycardic. No murmurs. PULMONARY: Coarse breath sounds bilaterally. ABDOMEN: Bowel sounds are present. Soft, nondistended, and nontender. PEG tube in place. EXTREMITIES: Edema. LABORATORY DATA: White blood cell count is 24.4 with 25% bands, hemoglobin 15.6, and platelets 454,000. Sodium is 139, potassium 4.9, chloride 97, bicarbonate 25, BUN 25, and creatinine 0.7. Lactic acid is 3. Liver function tests are within normal limits. Troponin is negative x1. MICROBIOLOGY DATA: 1. From 04/26/2016, blood culture is pending. 2. From 04/26/2016, sputum culture is pending. 3. From 04/26/2016, wound culture is pending. IMAGING STUDIES: From 04/26/2016, chest x-ray, bibasilar atelectasis. ASSESSMENT: 1. Possible recurrent aspiration pneumonia. Sputum culture is pending. Chest x-ray, hypoventilatory exam with bibasilar atelectasis. No acute process otherwise. 2. Multiple decubiti present on admission and infected. Surveillance wound culture is pending. 3. Recent Methicillin-resistant Staphylococcus aureus urinary tract infection, status post treatment. 4. Severe sepsis with improved lactic acidosis. 5. Leukocytosis/bandemia. 6. Low-grade fever. 7. Acute respiratory failure, requiring BiPAP. 8. Chronic left hip fracture. 9. Thrombocytosis. 10. History of stroke. 11. Dysphagia, status post percutaneous endoscopic gastrostomy tube placement. 12. Functional quadriplegia/bedbound. 13. No known drug allergies. 14. Do Not Resuscitate. PLAN: 1. Continue empiric IV vancomycin day #1 and broaden cefepime day # 1 to meropenem given recent cefepime exposure and add empiric Flagyl. 2. Follow up cultures and check Clostridium difficile. 3. Monitor CBC and temperatures. 4. Monitor BMP. 5. Monitor chest x-ray. 6. Wound care. 7. Aspiration precautions. Thank you. We will follow. Zi Shelby M.D. DR: Mariposa JOB#: [id number] CC: Aida Lopez M.D.; Fax#: [phone] Cooley M.D; Fax#: [phone]
[2016-04-27] VITALS: BP 106/74
[2016-04-27] MEDS: NovoLOG Insulin Flexpen SUBQ SCH ×5 (01:15→23:09)
[2016-04-27] MEDS: Vancomycin 750mg/D5W 275ml IVPB SCH ×4 (01:19→14:38)
[2016-04-27 04:00] VITALS: BP 123/74
[2016-04-27 04:37] LABS: EOSINOPHILS % (AUTO) 0.1 % (0.0-3.0); MEAN CORPUSCULAR HEMOGLOBIN 32.8 PG (27.0-31.0); MEAN CORPUSCULAR VOLUME 99 FL (80-99); MEAN PLATELET VOLUME 6.6 FL (6.5-10.1); MONOCYTES % (AUTO) 9.5 % (1.0-10.0); NEUTROPHILS % (AUTO) 75.5 % (45.0-75.0); PLATELET COUNT 142 K/UL (150-450); RED BLOOD COUNT 2.71 M/UL (4.20-5.40); RED CELL DISTRIBUTION WIDTH 16.3 % (11.6-14.8); WHITE BLOOD COUNT 7.7 K/UL (4.8-10.8)
[2016-04-27 04:42] LABS: INR 1.1 (0.9-1.1); PROTHROMBIN TIME 11.6 SEC (9.30-11.50)
[2016-04-27 05:08] LABS: ALANINE AMINOTRANSFERASE 5 U/L (3-33); ALBUMIN/GLOBULIN RATIO 0.6 (1.0-2.7); ANION GAP 11 (5-15); ASPARTATE AMINO TRANSFERASE 16 U/L (5-40); CALCIUM 8.4 mg/dL (8.6-10.2); CARBON DIOXIDE 25 mEQ/L (20-30); CHLORIDE 106 mEQ/L (98-107); CREATININE 0.3 mg/dL (0.5-0.9); GLOMERULAR FILTRATION RATE > 60 mL/min (>60); HEMOLYSIS 4; MAGNESIUM 1.7 mg/dL (1.7-2.5); POTASSIUM 3.4 mEQ/L (3.4-4.9); SODIUM 142 mEQ/L (135-145); TOTAL PROTEIN 5.5 g/dL (6.6-8.7)
[2016-04-27] MEDS: metroNIDAZOLE 500mg tab PEG SCH ×3 (06:57→22:33)
[2016-04-27] MEDS: Depakote 125mg Sprinkles GT SCH ×3 (06:57→21:21)
[2016-04-27 08:00] VITALS: BP 108/65
[2016-04-27] MEDS: Heparin 5000 units/ml inj SUBQ SCH ×2 (09:00→21:16)
[2016-04-27 09:39] LABS: BASOPHILS % (AUTO) 0.7 % (0.0-2.0); LYMPHOCYTES % (AUTO) 10.4 % (20.0-45.0); MEAN CORPUSCULAR HEMOGLOBIN 33.3 PG (27.0-31.0); MEAN CORPUSCULAR HGB CONC 34.7 G/DL (32.0-36.0); MEAN CORPUSCULAR VOLUME 96 FL (80-99); MEAN PLATELET VOLUME 7.7 FL (6.5-10.1); MONOCYTES % (AUTO) 8.6 % (1.0-10.0); NEUTROPHILS % (AUTO) 80.2 % (45.0-75.0); PLATELET COUNT 177 K/UL (150-450); RED CELL DISTRIBUTION WIDTH 15.9 % (11.6-14.8); WHITE BLOOD COUNT 7.3 K/UL (4.8-10.8)
[2016-04-27] MEDS: Meropenem 1 GM in NS 110 ML IVPB SCH ×2 (09:43→21:14)
[2016-04-27] MEDS: Pantoprazole Inj IVP SCH (09:44)
--- NOTE | 2016-04-27 12:25 | Diagnostic Imaging Report ---
Indication: DYSPNEA Technique: One view of the chest Comparison: 04/26/2016 Findings: There is some persistent left infrahilar atelectasis. There is resolution of previously demonstrated bibasilar atelectasis lung infiltrates are otherwise clear. Heart size is upper limits of normal. Impression: Decreasing right basilar atelectasis. 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
--- NOTE | 2016-04-27 14:31 | Infectious Diseases Prog Note ---
Assessment/Plan Assessment/Plan ASSESSMENT: 60 y/o female with: // Recurrent GPC clusters bacteremia ?source - C&S pending - h/o VSE.faecalis 12/29/15 - h/o CONS 10/03/15 // Possible recurrent aspiration PNA - SCx, legionella UAg pending - CXR 04/27: Decreasing right basilar atelectasis. Otherwise little change // Multiple decubiti POA, not grossly infected - surveillance WCx pending // Recent MRSA UTI SP Rx // Severe sepsis SP - resolved lactic acidosis // Leukocytosis / bandemia - resolved // Low grade fever - resolved // Acute respiratory failure / BiPAP-->FM // Chronic left hip fx // Thrombocytosis // h/o CVA // Dysphagia SP PEG // Functional quadriplegia / bedbound // NKDA // DNR PLAN: - continue empiric IV vancomycin, meropenem, flagyl d# 2, de-escalate soon ( 04/26 SP cefepime d# 1 ) ( 04/14 SP IV vancomycin, cefepime d# ) - repeat BCx to document clearance - f/u cultures, C.difficile - monitor CBC, temperatures - monitor BMP - monitor CXR - wound care - aspiration precautions Subjective Allergies: Coded Allergies: NO KNOWN DRUG ALLERGIES (Unverified Allergy, Unknown, 06/01/14) Subjective fevers, leukocytosis resolved BCx GPC Objective Vital Signs Last 24 Hour Vital Signs Date Time Temp Pulse Resp B/P Pulse Ox O2 Delivery O2 Flow Rate FiO2 04/27/16 13:18 120 32 98 Facial 40 04/27/16 12:00 40 04/27/16 11:03 121 30 99 Bi-pap 40 04/27/16 10:59 114 30 98 Bi-pap 40 04/27/16 10:57 120 35 96 Facial 40 04/27/16 09:17 121 26 99 Facial 40 04/27/16 08:00 40 04/27/16 08:00 98.1 128 25 108/65 Bi-pap 10.0 40 04/27/16 08:00 128 04/27/16 07:15 134 32 99 Bi-pap 40 04/27/16 07:12 128 32 99 Bi-pap 40 04/27/16 07:10 128 32 98 Facial 40 04/27/16 04:00 40 04/27/16 04:00 98.1 125 25 123/74 98 Bi-pap 10.0 40 04/27/16 03:34 120 04/27/16 02:35 116 30 98 Facial 40 04/27/16 02:30 119 32 98 Bi-pap 40 04/27/16 02:25 121 34 98 Bi-pap 40 04/27/16 00:56 116 32 98 Facial 40 04/27/16 00:00 99.0 120 33 106/74 98 Bi-pap 40 04/27/16 00:00 99.0 120 20 106/74 98 Bi-pap 10.0 40 04/27/16 00:00 10.0 40 04/26/16 23:57 121 04/26/16 22:54 122 31 98 Facial 40 04/26/16 22:50 128 32 98 Bi-pap 40 04/26/16 22:45 125 31 98 Bi-pap 40 04/26/16 20:59 127 31 97 Facial 40 04/26/16 20:00 40 04/26/16 20:00 98.2 136 31 114/69 98 Bi-pap 40 04/26/16 20:00 128 04/26/16 19:03 123 33 96 Facial 40 04/26/16 19:00 125 33 96 Bi-pap 40 04/26/16 18:50 127 33 96 Bi-pap 40 04/26/16 16:29 134 30 97 Facial 40 04/26/16 16:00 40 04/26/16 16:00 134 04/26/16 16:00 98.7 134 33 140/50 97 Bi-pap 40 04/26/16 15:06 135 30 98 Facial 40 04/26/16 15:00 134 30 98 Bi-pap 40 04/26/16 14:55 137 30 98 Bi-pap 40 Height (Feet): 5 Height (Inches): 6.00 Weight (Pounds): 153 General Appearance: no acute distress Respiratory/Chest: no respiratory distress Cardiovascular: normal rate, regular rhythm Abdomen: normal bowel sounds, soft, non tender, non distended Microbiology Date/Time Source Procedure Growth Status 04/26/16 01:25 Blood Blood Culture - Preliminary Resulted 04/26/16 01:08 Blood Blood Culture - Preliminary Resulted 04/26/16 04:45 Wound Gram Stain - Final Resulted 04/26/16 04:45 Wound Wound Culture Pending Resulted Laboratory Tests Test 04/26/16 15:30 04/26/16 17:30 04/26/16 23:14 04/27/16 04:00 Lactic Acid Level 2.40 mmol/L (0.66-2.22) H 2.10 mmol/L (0.66-2.22) 1.00 mmol/L (0.66-2.22) Urine Legionella Antigen Pending White Blood Count 7.7 K/UL (4.8-10.8) # Red Blood Count 2.71 M/UL (4.20-5.40) L Hemoglobin 8.9 G/DL (12.0-16.0) #L Hematocrit 26.9 % (37.0-47.0) #L Mean Corpuscular Volume 99 FL (80-99) Mean Corpuscular Hemoglobin 32.8 PG (27.0-31.0) H Mean Corpuscular Hemoglobin Concent 33.0 G/DL (32.0-36.0) Red Cell Distribution Width 16.3 % (11.6-14.8) H Platelet Count 142 K/UL (150-450) #L Mean Platelet Volume 6.6 FL (6.5-10.1) Neutrophils (%) (Auto) 75.5 % (45.0-75.0) H Lymphocytes (%) (Auto) 14.0 % (20.0-45.0) L Monocytes (%) (Auto) 9.5 % (1.0-10.0) Eosinophils (%) (Auto) 0.1 % (0.0-3.0) Basophils (%) (Auto) 1.0 % (0.0-2.0) Prothrombin Time 11.6 SEC (9.30-11.50) H Prothromb Time International Ratio 1.1 (0.9-1.1) Activated Partial Thromboplast Time 30 SEC (23-33) Sodium Level 142 mEQ/L (135-145) Potassium Level 3.4 mEQ/L (3.4-4.9) Chloride Level 106 mEQ/L (98-107) Carbon Dioxide Level 25 mEQ/L (20-30) Anion Gap 11 (5-15) Blood Urea Nitrogen 14 mg/dL (7-23) Creatinine 0.3 mg/dL (0.5-0.9) #L Estimat Glomerular Filtration Rate > 60 mL/min (>60) Glucose Level 122 mg/dL (74-106) #H Calcium Level 8.4 mg/dL (8.6-10.2) L Phosphorus Level 3.0 mg/dL (2.5-4.8) Magnesium Level 1.7 mg/dL (1.7-2.5) Total Bilirubin 0.4 mg/dL (0.0-1.2) Aspartate Amino Transf (AST/SGOT) 16 U/L (5-40) Alanine Aminotransferase (ALT/SGPT) 5 U/L (3-33) Alkaline Phosphatase 57 U/L (35-104) Total Protein 5.5 g/dL (6.6-8.7) #L Albumin 2.1 g/dL (3.5-5.2) L Globulin 3.4 g/dL Albumin/Globulin Ratio 0.6 (1.0-2.7) L Test 04/27/16 08:50 04/27/16 13:40 White Blood Count 7.3 K/UL (4.8-10.8) Red Blood Count 2.90 M/UL (4.20-5.40) L Hemoglobin 9.6 G/DL (12.0-16.0) L Hematocrit 27.8 % (37.0-47.0) L Mean Corpuscular Volume 96 FL (80-99) Mean Corpuscular Hemoglobin 33.3 PG (27.0-31.0) H Mean Corpuscular Hemoglobin Concent 34.7 G/DL (32.0-36.0) Red Cell Distribution Width 15.9 % (11.6-14.8) H Platelet Count 177 K/UL (150-450) Mean Platelet Volume 7.7 FL (6.5-10.1) Neutrophils (%) (Auto) 80.2 % (45.0-75.0) H Lymphocytes (%) (Auto) 10.4 % (20.0-45.0) L Monocytes (%) (Auto) 8.6 % (1.0-10.0) Eosinophils (%) (Auto) 0.0 % (0.0-3.0) Basophils (%) (Auto) 0.7 % (0.0-2.0) Vancomycin Level Trough 11.4 ug/mL (5.0-12.0) Current Medications Medications (Trade) Dose Ordered Sig/Kimo Route PRN Reason Start Time Stop Time Status Last Admin Dose Admin Acetaminophen (Tylenol) 650 mg Q4H PRN ORAL T>100.5 04/26/16 07:00 05/26/16 06:59 Al Hydroxide/Mg Hydroxide (Mylanta II) 30 ml Q6H PRN ORAL dyspepsia 04/26/16 07:00 05/26/16 06:59 Albuterol/ Ipratropium (DuoNeb 0.5-3(2.5)mg/3ml) 3 ml Q4H PRN HHN Shortness of Breath 04/26/16 07:00 05/01/16 06:59 Dextrose (Dextrose 50%) STAT PRN IV Hypoglycemia 04/26/16 07:00 05/26/16 06:59 Divalproex Sodium (Depakote Sprinkles) 500 mg Q8HR GT 04/26/16 14:00 05/26/16 13:59 04/27/16 06:57 Heparin Sodium (Porcine) (Heparin 5000 units/ml) 5,000 units EVERY 12 HOURS SUBQ 04/26/16 09:00 05/26/16 08:59 04/26/16 20:51 Insulin Aspart (NovoLOG) EVERY 6 HOURS SUBQ 04/26/16 12:00 05/26/16 11:59 04/27/16 07:04 Levetiracetam (Keppra) 1,500 mg Q12HR ORAL 04/26/16 09:00 05/26/16 08:59 04/27/16 09:43 Meropenem/Sodium Chloride (Merrem/Sodium Chloride) 110 ml @ 220 mls/hr Q12HR IVPB 04/26/16 18:00 05/01/16 17:59 04/27/16 09:43 Metronidazole (Flagyl) 500 mg Q8HR PEG 04/26/16 16:00 05/03/16 15:59 04/27/16 06:57 Nitroglycerin (Ntg) 0.4 mg Q5M PRN SL Prn Chest Pain 04/26/16 07:00 05/26/16 06:59 Ondansetron HCl (Zofran) 4 mg Q6H PRN IVP Nausea & Vomiting 04/26/16 07:00 05/26/16 06:59 Pantoprazole 40 mg 40 mg DAILY IVP 04/26/16 09:00 05/26/16 08:59 04/27/16 09:44 Polyethylene Glycol (Miralax) 17 gm DAILYPRN PRN ORAL Constipation 04/26/16 07:00 05/26/16 06:59 Sodium Chloride 1,000 ml @ 100 mls/hr Q10H IV 04/26/16 10:00 05/26/16 09:59 04/27/16 07:00 Temazepam (Restoril) 15 mg HSPRN PRN ORAL Insomnia 04/26/16 21:00 05/03/16 20:59 Vancomycin HCl 1 ea 1 ea DAILY PRN MISC Per rx protocol 04/26/16 07:00 05/26/16 06:59 Vancomycin HCl/ Dextrose (Vancomycin/D5W) 275 ml @ 183.708 mls/hr Q12HR@0200,1400 IVPB 04/26/16 14:00 05/01/16 13:59 04/27/16 01:19 AUGUSTO CASON Apr 27, 2016 14:31
[2016-04-27 15:02] VITALS: BP 114/69
--- NOTE | 2016-04-27 15:02 | Pulmonology Progress Note ---
Assessment/Plan Problems: (1) Acute respiratory failure (2) Severe sepsis (3) Aspiration pneumonia (4) G tube feedings (5) Cerebral vascular disease (6) Seizure disorder (7) Anemia Respiratory: monitor respiratory rate, adjust FIO2 Cardiac: continue to monitor HR/BP Renal: F/U I&O, keep IV fluid Infectious Disease: check cultures Gastrointestinal: hold feedings Endocrine: monitor blood sugar, check TSH, continue sliding scale insulin Hematologic: transfuse if hgb<8.5 Neurologic: PRN Ativan, PRN Morphine, keep patient comfortable Time Spent (Minutes): 40 Notes Reviewed: cardio Discussed with: nurses, consultants, case operator Subjective ROS Limited/Unobtainable: No Constitutional: Reports: no symptoms HEENT: Repors: no symptoms Allergies: Coded Allergies: NO KNOWN DRUG ALLERGIES (Unverified Allergy, Unknown, 06/01/14) Objective Last 24 Hour Vital Signs Date Time Temp Pulse Resp B/P Pulse Ox O2 Delivery O2 Flow Rate FiO2 04/27/16 13:18 120 32 98 Facial 40 04/27/16 12:00 40 04/27/16 11:03 121 30 99 Bi-pap 40 04/27/16 10:59 114 30 98 Bi-pap 40 04/27/16 10:57 120 35 96 Facial 40 04/27/16 09:17 121 26 99 Facial 40 04/27/16 08:00 40 04/27/16 08:00 98.1 128 25 108/65 Bi-pap 10.0 40 04/27/16 08:00 128 04/27/16 07:15 134 32 99 Bi-pap 40 04/27/16 07:12 128 32 99 Bi-pap 40 04/27/16 07:10 128 32 98 Facial 40 04/27/16 04:00 40 04/27/16 04:00 98.1 125 25 123/74 98 Bi-pap 10.0 40 04/27/16 03:34 120 04/27/16 02:35 116 30 98 Facial 40 04/27/16 02:30 119 32 98 Bi-pap 40 04/27/16 02:25 121 34 98 Bi-pap 40 04/27/16 00:56 116 32 98 Facial 40 04/27/16 00:00 99.0 120 33 106/74 98 Bi-pap 40 04/27/16 00:00 99.0 120 20 106/74 98 Bi-pap 10.0 40 04/27/16 00:00 10.0 40 04/26/16 23:57 121 04/26/16 22:54 122 31 98 Facial 40 04/26/16 22:50 128 32 98 Bi-pap 40 04/26/16 22:45 125 31 98 Bi-pap 40 04/26/16 20:59 127 31 97 Facial 40 04/26/16 20:00 40 04/26/16 20:00 98.2 136 31 114/69 98 Bi-pap 40 04/26/16 20:00 128 04/26/16 19:03 123 33 96 Facial 40 04/26/16 19:00 125 33 96 Bi-pap 40 04/26/16 18:50 127 33 96 Bi-pap 40 04/26/16 16:29 134 30 97 Facial 40 04/26/16 16:00 40 04/26/16 16:00 134 04/26/16 16:00 98.7 134 33 140/50 97 Bi-pap 40 04/26/16 15:06 135 30 98 Facial 40 Intake and Output 04/26/16 04/27/16 19:00 07:00 Intake Total 1098.708 ml 1675 ml Output Total 340 ml 800 ml Balance 758.708 ml 875 ml Intake Oral 0 ml IV Total 1048.708 ml 1575 ml Other 50 ml 100 ml Output Urine Total 340 ml 800 ml # Bowel Movements 1 1 Objective on bipap General Appearance: no acute distress Respiratory/Chest: crackles/rales Cardiovascular: normal peripheral pulses, normal rate Abdomen: normal bowel sounds, soft, non tender Genitourinary: normal external genitalia Extremities: no clubbing Skin: no ulcers 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, abnormal gait Microbiology Date/Time Source Procedure Growth Status 04/26/16 01:25 Blood Blood Culture - Preliminary Resulted 04/26/16 01:08 Blood Blood Culture - Preliminary Resulted 04/26/16 04:45 Wound Gram Stain - Final Resulted 04/26/16 04:45 Wound Wound Culture Pending Resulted Laboratory Tests 04/26/16 15:30: Lactic Acid Level 2.40H, Urine Legionella Antigen [Pending] 04/26/16 17:30: Lactic Acid Level 2.10 04/26/16 23:14: Lactic Acid Level 1.00 04/27/16 04:00: White Blood Count 7.7#, Red Blood Count 2.71L, Hemoglobin 8.9#L, Hematocrit 26.9 #L, Mean Corpuscular Volume 99, Mean Corpuscular Hemoglobin 32.8H, Mean Corpuscular Hemoglobin Concent 33.0, Red Cell Distribution Width 16.3H, Platelet Count 142#L, Mean Platelet Volume 6.6, Neutrophils (%) (Auto) 75.5H, Lymphocytes (%) (Auto) 14.0L, Monocytes (%) (Auto) 9.5, Eosinophils (%) (Auto) 0.1, Basophils (%) (Auto) 1.0, Prothrombin Time 11.6H, Prothromb Time International Ratio 1.1, Activated Partial Thromboplast Time 30, Sodium Level 142, Potassium Level 3.4, Chloride Level 106, Carbon Dioxide Level 25, Anion Gap 11, Blood Urea Nitrogen 14, Creatinine 0.3#L, Estimat Glomerular Filtration Rate > 60, Glucose Level 122#H, Calcium Level 8.4L, Phosphorus Level 3.0, Magnesium Level 1.7, Total Bilirubin 0.4, Aspartate Amino Transf (AST/SGOT) 16, Alanine Aminotransferase (ALT/SGPT) 5, Alkaline Phosphatase 57, Total Protein 5.5#L, Albumin 2.1L, Globulin 3.4, Albumin/Globulin Ratio 0.6L 04/27/16 08:50: White Blood Count 7.3, Red Blood Count 2.90L, Hemoglobin 9.6L, Hematocrit 27.8L , Mean Corpuscular Volume 96, Mean Corpuscular Hemoglobin 33.3H, Mean Corpuscular Hemoglobin Concent 34.7, Red Cell Distribution Width 15.9H, Platelet Count 177, Mean Platelet Volume 7.7, Neutrophils (%) (Auto) 80.2H, Lymphocytes (%) (Auto) 10.4L, Monocytes (%) (Auto) 8.6, Eosinophils (%) (Auto) 0.0, Basophils (%) (Auto) 0.7 04/27/16 13:40: Vancomycin Level Trough 11.4 Current Medications Medications (Trade) Dose Ordered Sig/Kimo Route PRN Reason Start Time Stop Time Status Last Admin Dose Admin Acetaminophen (Tylenol) 650 mg Q4H PRN ORAL T>100.5 04/26/16 07:00 05/26/16 06:59 Al Hydroxide/Mg Hydroxide (Mylanta II) 30 ml Q6H PRN ORAL dyspepsia 04/26/16 07:00 05/26/16 06:59 Albuterol/ Ipratropium (DuoNeb 0.5-3(2.5)mg/3ml) 3 ml Q4H PRN HHN Shortness of Breath 04/26/16 07:00 05/01/16 06:59 Dextrose (Dextrose 50%) STAT PRN IV Hypoglycemia 04/26/16 07:00 05/26/16 06:59 Divalproex Sodium (Depakote Sprinkles) 500 mg Q8HR GT 04/26/16 14:00 05/26/16 13:59 04/27/16 14:34 Heparin Sodium (Porcine) (Heparin 5000 units/ml) 5,000 units EVERY 12 HOURS SUBQ 04/26/16 09:00 05/26/16 08:59 04/26/16 20:51 Insulin Aspart (NovoLOG) EVERY 6 HOURS SUBQ 04/26/16 12:00 05/26/16 11:59 04/27/16 07:04 Levetiracetam (Keppra) 1,500 mg Q12HR ORAL 04/26/16 09:00 05/26/16 08:59 04/27/16 09:43 Meropenem/Sodium Chloride (Merrem/Sodium Chloride) 110 ml @ 220 mls/hr Q12HR IVPB 04/26/16 18:00 05/01/16 17:59 04/27/16 09:43 Metronidazole (Flagyl) 500 mg Q8HR PEG 04/26/16 16:00 05/03/16 15:59 04/27/16 14:34 Nitroglycerin (Ntg) 0.4 mg Q5M PRN SL Prn Chest Pain 04/26/16 07:00 05/26/16 06:59 Ondansetron HCl (Zofran) 4 mg Q6H PRN IVP Nausea & Vomiting 04/26/16 07:00 05/26/16 06:59 Pantoprazole 40 mg 40 mg DAILY IVP 04/26/16 09:00 05/26/16 08:59 04/27/16 09:44 Polyethylene Glycol (Miralax) 17 gm DAILYPRN PRN ORAL Constipation 04/26/16 07:00 05/26/16 06:59 Sodium Chloride 1,000 ml @ 100 mls/hr Q10H IV 04/26/16 10:00 05/26/16 09:59 04/27/16 07:00 Temazepam (Restoril) 15 mg HSPRN PRN ORAL Insomnia 04/26/16 21:00 05/03/16 20:59 Vancomycin HCl 1 ea 1 ea DAILY PRN MISC Per rx protocol 04/26/16 07:00 05/26/16 06:59 Vancomycin HCl/ Dextrose (Vancomycin/D5W) 275 ml @ 183.708 mls/hr Q12HR@0200,1400 IVPB 04/26/16 14:00 05/01/16 13:59 04/27/16 14:38 BISHOP PENA Apr 27, 2016 15:02
[2016-04-27 16:10] VITALS: BP 125/69
[2016-04-27 20:09] VITALS: BP 116/87
[2016-04-28] VITALS: BP 119/68
[2016-04-28] MEDS: Vancomycin 1 GM in D5W 275 ML IVPB SCH ×2 (01:46→14:00)
[2016-04-28 04:00] VITALS: BP 132/75
[2016-04-28] MEDS: metroNIDAZOLE 500mg tab PEG SCH ×3 (05:48→22:13)
[2016-04-28] MEDS: Depakote 125mg Sprinkles GT SCH ×3 (05:48→22:13)
[2016-04-28] MEDS: NovoLOG Insulin Flexpen SUBQ SCH ×3 (05:49→17:56)
[2016-04-28 08:00] VITALS: BP 92/65
[2016-04-28] MEDS: Meropenem 1 GM in NS 110 ML IVPB SCH ×2 (08:34→20:48)
[2016-04-28] MEDS: Pantoprazole Inj IVP SCH (08:34)
[2016-04-28] MEDS: Heparin 5000 units/ml inj SUBQ SCH ×2 (08:38→20:50)
--- NOTE | 2016-04-28 11:23 | Pulmonology Progress Note ---
Assessment/Plan Problems: (1) Acute respiratory failure (2) Severe sepsis (3) Aspiration pneumonia (4) G tube feedings (5) Cerebral vascular disease (6) Seizure disorder (7) Anemia Assessment/Plan improving off bipap continue antibiotics check cultures med/surg Subjective ROS Limited/Unobtainable: No Constitutional: Reports: no symptoms HEENT: Repors: no symptoms Respiratory: Reports: no symptoms Allergies: Coded Allergies: NO KNOWN DRUG ALLERGIES (Unverified Allergy, Unknown, 06/01/14) Objective Last 24 Hour Vital Signs Date Time Temp Pulse Resp B/P Pulse Ox O2 Delivery O2 Flow Rate FiO2 04/28/16 08:00 103 04/28/16 08:00 3.0 04/28/16 07:20 102 24 98 Nasal Cannula 04/28/16 07:13 101 24 100 Nasal Cannula 3.0 04/28/16 07:10 101 26 99 Nasal Cannula 3.0 04/28/16 07:09 101 26 100 Nasal Cannula 3.0 04/28/16 04:58 95 22 100 Facial 40 04/28/16 04:00 97.5 104 24 132/75 98 Bi-pap 40 04/28/16 04:00 40 04/28/16 04:00 101 04/28/16 03:13 92 23 99 Bi-pap 40 04/28/16 03:10 95 30 99 Bi-pap 40 04/28/16 03:10 95 30 99 Facial 40 04/28/16 01:15 97 25 100 Facial 40 04/28/16 00:00 40 04/28/16 00:00 92 04/28/16 00:00 97.4 89 21 119/68 99 Bi-pap 40 04/27/16 23:05 91 26 100 Bi-pap 40 04/27/16 23:00 93 27 100 Facial 40 04/27/16 23:00 93 27 100 Bi-pap 40 04/27/16 21:15 94 23 100 Facial 40 04/27/16 20:09 97.7 112 20 116/87 99 Bi-pap 40 04/27/16 20:00 91 04/27/16 20:00 40 04/27/16 19:05 98 30 99 Bi-pap 40 04/27/16 19:00 99 24 100 Facial 40 04/27/16 19:00 82 30 98 Bi-pap 40 04/27/16 17:18 94 22 100 Facial 40 04/27/16 16:10 97.8 110 27 125/69 99 Bi-pap 40 04/27/16 16:00 40 04/27/16 16:00 105 04/27/16 15:18 111 26 99 Bi-pap 40 04/27/16 15:15 112 26 99 Bi-pap 40 04/27/16 15:14 109 23 99 Facial 40 04/27/16 15:03 111 04/27/16 15:02 97.8 111 24 114/69 Bi-pap 10.0 40 04/27/16 13:18 120 32 98 Facial 40 04/27/16 12:00 40 Intake and Output 04/27/16 04/28/16 19:00 07:00 Intake Total 100 ml 1712.416 ml Output Total 800 ml 300 ml Balance -700 ml 1412.416 ml IV Total 1712.416 ml Other 100 ml Output Urine Total 800 ml 300 ml # Bowel Movements 1 Objective on bipap General Appearance: WD/WN HEENT: normocephalic, atraumatic Respiratory/Chest: chest wall non-tender, normal breath sounds Cardiovascular: normal peripheral pulses Abdomen: normal bowel sounds, soft, non tender Genitourinary: normal external genitalia Extremities: no cyanosis Skin: no rash 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 Complete 04/26/16 04:30 Rectum VRE Culture - Final Enterococcus Faecalis - Vre Complete Laboratory Tests 04/27/16 13:40: Vancomycin Level Trough 11.4 Current Medications Medications (Trade) Dose Ordered Sig/Kimo Route PRN Reason Start Time Stop Time Status Last Admin Dose Admin Acetaminophen (Tylenol) 650 mg Q4H PRN ORAL T>100.5 04/26/16 07:00 05/26/16 06:59 Al Hydroxide/Mg Hydroxide (Mylanta II) 30 ml Q6H PRN ORAL dyspepsia 04/26/16 07:00 05/26/16 06:59 Albuterol/ Ipratropium (DuoNeb 0.5-3(2.5)mg/3ml) 3 ml Q4H PRN HHN Shortness of Breath 04/26/16 07:00 05/01/16 06:59 04/28/16 07:21 Dextrose (Dextrose 50%) STAT PRN IV Hypoglycemia 04/26/16 07:00 05/26/16 06:59 Divalproex Sodium (Depakote Sprinkles) 500 mg Q8HR GT 04/26/16 14:00 05/26/16 13:59 04/28/16 05:48 Heparin Sodium (Porcine) (Heparin 5000 units/ml) 5,000 units EVERY 12 HOURS SUBQ 04/26/16 09:00 05/26/16 08:59 04/28/16 08:38 Insulin Aspart (NovoLOG) EVERY 6 HOURS SUBQ 04/26/16 12:00 05/26/16 11:59 04/28/16 05:49 Levetiracetam (Keppra) 1,500 mg Q12HR ORAL 04/26/16 09:00 05/26/16 08:59 04/28/16 08:35 Meropenem/Sodium Chloride (Merrem/Sodium Chloride) 110 ml @ 220 mls/hr Q12HR IVPB 04/26/16 18:00 05/01/16 17:59 04/28/16 08:34 Metronidazole 500 mg 500 mg Q8HR PEG 04/26/16 16:00 05/03/16 15:59 04/28/16 05:48 Nitroglycerin (Ntg) 0.4 mg Q5M PRN SL Prn Chest Pain 04/26/16 07:00 05/26/16 06:59 Ondansetron HCl (Zofran) 4 mg Q6H PRN IVP Nausea & Vomiting 04/26/16 07:00 05/26/16 06:59 Pantoprazole 40 mg 40 mg DAILY IVP 04/26/16 09:00 05/26/16 08:59 04/28/16 08:34 Polyethylene Glycol (Miralax) 17 gm DAILYPRN PRN ORAL Constipation 04/26/16 07:00 05/26/16 06:59 Sodium Chloride 1,000 ml @ 100 mls/hr Q10H IV 04/26/16 10:00 05/26/16 09:59 04/28/16 01:46 Temazepam (Restoril) 15 mg HSPRN PRN ORAL Insomnia 04/26/16 21:00 05/03/16 20:59 Vancomycin HCl (Vanco rx to dose) 1 ea DAILY PRN MISC Per rx protocol 04/26/16 07:00 05/26/16 06:59 Vancomycin HCl/ Dextrose (Vancomycin/D5W) 275 ml @ 183.708 mls/hr Q12HR@0200,1400 IVPB 04/28/16 02:00 05/03/16 01:59 04/28/16 01:46 BISHOP PENA Apr 28, 2016 11:23
--- NOTE | 2016-04-28 11:52 | Cardiology Report ---
APPROVED REPORT EKG Measurement Heart [id number] Sinus tachycardia T wave abnormality, consider lateral ischemia Abnormal ECG
[2016-04-28 12:00] VITALS: BP 104/59
--- NOTE | 2016-04-28 13:02 | Infectious Diseases Prog Note ---
Assessment/Plan Assessment/Plan ASSESSMENT: 60 y/o female with: // Recurrent CONS bacteremia ?source - repeat BCx pending - 04/27/16 BCx pending - 04/26/16 BCx CONS - 01/02/16 TTE(-) SBE - 12/29/15 BCx VSE.faecalis - 10/03/15 BCx CONS // Possible recurrent aspiration PNA - SCx, legionella UAg pending - CXR 04/27: Decreasing right basilar atelectasis. Otherwise little change // Multiple decubiti POA, not grossly infected - surveillance WCx CONS, GNR // Recent MRSA UTI SP Rx // Severe sepsis SP - resolved lactic acidosis // Leukocytosis / bandemia - resolved // Low grade fever - resolved // Acute respiratory failure / BiPAP-->FM-->NC // Chronic left hip fx // Thrombocytosis // h/o CVA // Dysphagia SP PEG // Functional quadriplegia / bedbound // NKDA // DNR PLAN: - continue empiric IV vancomycin, meropenem d# 3. DC flagyl d# 3 ( 04/26 SP cefepime d# 1 ) ( 04/14 SP IV vancomycin, cefepime d# 7 / ) - f/u cultures, C.difficile - monitor CBC, temperatures - monitor BMP - monitor CXR - wound care - aspiration precautions Subjective Allergies: Coded Allergies: NO KNOWN DRUG ALLERGIES (Unverified Allergy, Unknown, 06/01/14) Subjective fevers, leukocytosis resolved BCx CONS Objective Vital Signs Last 24 Hour Vital Signs Date Time Temp Pulse Resp B/P Pulse Ox O2 Delivery O2 Flow Rate FiO2 04/28/16 12:00 3.0 04/28/16 12:00 98 04/28/16 11:19 89 20 98 Nasal Cannula 3.0 04/28/16 11:15 89 22 98 Nasal Cannula 3.0 04/28/16 08:00 103 04/28/16 08:00 3.0 04/28/16 07:20 102 24 98 Nasal Cannula 04/28/16 07:13 101 24 100 Nasal Cannula 3.0 04/28/16 07:10 101 26 99 Nasal Cannula 3.0 04/28/16 07:09 101 26 100 Nasal Cannula 3.0 04/28/16 07:07 99 Nasal Cannula 3.0 04/28/16 07:06 Nasal Cannula 3.0 04/28/16 04:58 95 22 100 Facial 40 04/28/16 04:00 97.5 104 24 132/75 98 Bi-pap 40 04/28/16 04:00 40 04/28/16 04:00 101 04/28/16 03:13 92 23 99 Bi-pap 40 04/28/16 03:10 95 30 99 Bi-pap 40 04/28/16 03:10 95 30 99 Facial 40 04/28/16 01:15 97 25 100 Facial 40 04/28/16 00:00 40 04/28/16 00:00 92 04/28/16 00:00 97.4 89 21 119/68 99 Bi-pap 40 04/27/16 23:05 91 26 100 Bi-pap 40 04/27/16 23:00 93 27 100 Facial 40 04/27/16 23:00 93 27 100 Bi-pap 40 04/27/16 21:15 94 23 100 Facial 40 04/27/16 20:09 97.7 112 20 116/87 99 Bi-pap 40 04/27/16 20:00 91 04/27/16 20:00 40 04/27/16 19:05 98 30 99 Bi-pap 40 04/27/16 19:00 99 24 100 Facial 40 04/27/16 19:00 82 30 98 Bi-pap 40 04/27/16 17:18 94 22 100 Facial 40 04/27/16 16:10 97.8 110 27 125/69 99 Bi-pap 40 04/27/16 16:00 40 04/27/16 16:00 105 04/27/16 15:18 111 26 99 Bi-pap 40 17 15:15 112 26 99 Bi-pap 40 04/27/16 15:14 109 23 99 Facial 40 17 15:03 111 04/27/16 15:02 97.8 111 24 114/69 Bi-pap 10.0 40 04/27/16 13:18 120 32 98 Facial 40 Height (Feet): 5 Height (Inches): 6.00 Weight (Pounds): 153 General Appearance: no acute distress Respiratory/Chest: no respiratory distress Cardiovascular: normal rate, regular rhythm Abdomen: normal bowel sounds, soft, non tender, non distended Microbiology Date/Time Source Procedure Growth Status 04/26/16 01:25 Blood Blood Culture - Preliminary Staphylococcus Sp Coag Neg Resulted 04/26/16 01:08 Blood Blood Culture - Preliminary Staphylococcus Sp Coag Neg Resulted 04/26/16 04:45 Wound Gram Stain - Final Resulted 04/26/16 04:45 Wound Culture - Preliminary Gram Negative Bacillus 1 Staphylococcus Sp Coag Neg Resulted 04/26/16 04:30 Nasal Nares MRSA Culture - Final NO METHICILLIN RESISTANT STAPH AUREUS... Complete 04/26/16 04:30 Rectum VRE Culture - Final Enterococcus Faecalis - Vre Complete Laboratory Tests Test 04/27/16 13:40 Vancomycin Level Trough 11.4 ug/mL (5.0-12.0) Current Medications Medications (Trade) Dose Ordered Sig/Kimo Route PRN Reason Start Time Stop Time Status Last Admin Dose Admin Acetaminophen (Tylenol) 650 mg Q4H PRN ORAL T>100.5 04/26/16 07:00 05/26/16 06:59 Al Hydroxide/Mg Hydroxide (Mylanta II) 30 ml Q6H PRN ORAL dyspepsia 04/26/16 07:00 05/26/16 06:59 Albuterol/ Ipratropium (DuoNeb 0.5-3(2.5)mg/3ml) 3 ml Q4H PRN HHN Shortness of Breath 04/26/16 07:00 05/01/16 06:59 04/28/16 07:21 Dextrose (Dextrose 50%) STAT PRN IV Hypoglycemia 04/26/16 07:00 05/26/16 06:59 Divalproex Sodium (Depakote Sprinkles) 500 mg Q8HR GT 04/26/16 14:00 05/26/16 13:59 04/28/16 05:48 Heparin Sodium (Porcine) (Heparin 5000 units/ml) 5,000 units EVERY 12 HOURS SUBQ 04/26/16 09:00 05/26/16 08:59 04/28/16 08:38 Insulin Aspart (NovoLOG) EVERY 6 HOURS SUBQ 04/26/16 12:00 05/26/16 11:59 04/28/16 05:49 Levetiracetam (Keppra) 1,500 mg Q12HR ORAL 04/26/16 09:00 05/26/16 08:59 04/28/16 08:35 Meropenem/Sodium Chloride (Merrem/Sodium Chloride) 110 ml @ 220 mls/hr Q12HR IVPB 04/26/16 18:00 05/01/16 17:59 04/28/16 08:34 Metronidazole 500 mg 500 mg Q8HR PEG 04/26/16 16:00 05/03/16 15:59 04/28/16 05:48 Nitroglycerin (Ntg) 0.4 mg Q5M PRN SL Prn Chest Pain 04/26/16 07:00 05/26/16 06:59 Ondansetron HCl (Zofran) 4 mg Q6H PRN IVP Nausea & Vomiting 04/26/16 07:00 05/26/16 06:59 Pantoprazole 40 mg 40 mg DAILY IVP 04/26/16 09:00 05/26/16 08:59 04/28/16 08:34 Polyethylene Glycol (Miralax) 17 gm DAILYPRN PRN ORAL Constipation 04/26/16 07:00 05/26/16 06:59 Sodium Chloride 1,000 ml @ 100 mls/hr Q10H IV 04/26/16 10:00 05/26/16 09:59 04/28/16 12:24 Temazepam (Restoril) 15 mg HSPRN PRN ORAL Insomnia 04/26/16 21:00 05/03/16 20:59 Vancomycin HCl (Vanco rx to dose) 1 ea DAILY PRN MISC Per rx protocol 04/26/16 07:00 05/26/16 06:59 Vancomycin HCl/ Dextrose (Vancomycin/D5W) 275 ml @ 183.708 mls/hr Q12HR@0200,1400 IVPB 04/28/16 02:00 05/03/16 01:59 04/28/16 01:46 AUGUSTO CASON Apr 28, 2016 13:02
[2016-04-28] MEDS ORDERED: Mylanta II UD 30ml GT PRN ×2 (13:11→19:15)
[2016-04-28 16:00] VITALS: BP 103/57
[2016-04-28] MEDS ORDERED: Nitroglycerin Subl 0.4mg tab (Bottle Of 25) SL PRN (16:20)
[2016-04-28] MEDS ORDERED: Tubing IV Secondary IV ONE (18:29)
[2016-04-28 19:00] VITALS: BP 106/70
[2016-04-28] MEDS: levETIRAcetam 500mg/5ml Liquid GT SCH (20:49)
[2016-04-29] VITALS: BP 142/77
[2016-04-29] MEDS: DuoNeb 0.5-3(2.5)mg/3ml neb HHN PRN (00:37)
[2016-04-29] MEDS: NovoLOG Insulin Flexpen SUBQ SCH ×4 (00:57→18:45)
[2016-04-29] MEDS: Vancomycin 1 GM in D5W 275 ML IVPB SCH ×2 (02:00→13:43)
[2016-04-29 04:00] VITALS: BP 125/61
[2016-04-29] MEDS: metroNIDAZOLE 500mg tab PEG SCH ×3 (06:18→21:47)
[2016-04-29] MEDS: Depakote 125mg Sprinkles GT SCH ×3 (06:18→21:47)
[2016-04-29] MEDS ORDERED: Miralax 17gm pkt ORAL PRN (07:00)
[2016-04-29 07:45] LABS: MEAN CORPUSCULAR HEMOGLOBIN 31.2 PG (27.0-31.0); MEAN CORPUSCULAR HGB CONC 32.5 G/DL (32.0-36.0); MEAN CORPUSCULAR VOLUME 96 FL (80-99); MEAN PLATELET VOLUME 7.2 FL (6.5-10.1); PLATELET COUNT 174 K/UL (150-450); RED BLOOD COUNT 2.93 M/UL (4.20-5.40); RED CELL DISTRIBUTION WIDTH 15.5 % (11.6-14.8); WHITE BLOOD COUNT 2.9 K/UL (4.8-10.8)
[2016-04-29 07:49] LABS: ALANINE AMINOTRANSFERASE 6 U/L (3-33); ALBUMIN/GLOBULIN RATIO 0.5 (1.0-2.7); ANION GAP 13 (5-15); ASPARTATE AMINO TRANSFERASE 14 U/L (5-40); CALCIUM 7.8 mg/dL (8.6-10.2); CARBON DIOXIDE 26 mEQ/L (20-30); CHLORIDE 102 mEQ/L (98-107); CREATININE 0.3 mg/dL (0.5-0.9); GLOMERULAR FILTRATION RATE > 60 mL/min (>60); HEMOLYSIS 3; MAGNESIUM 1.9 mg/dL (1.7-2.5); PHOSPHORUS 2.7 mg/dL (2.5-4.8); SODIUM 141 mEQ/L (135-145); TOTAL PROTEIN 5.7 g/dL (6.6-8.7)
[2016-04-29 07:52] VITALS: BP 115/73
[2016-04-29] MEDS: Pantoprazole Inj IVP SCH (09:00)
[2016-04-29] MEDS: Heparin 5000 units/ml inj SUBQ SCH ×2 (09:00→21:51)
[2016-04-29 09:41] LABS: ANISOCYTOSIS 1+; BAND NEUTROPHILS % (MANUAL) 0 % (0-8); BASOPHILS % (MANUAL) 0 % (0-2); EOSINOPHILS % (MANUAL) 0 % (0-3); HYPOCHROMASIA 2+; LYMPHOCYTES % (MANUAL) 22 % (20-45); NEUTROPHILS % (MANUAL) 68 % (45-75); PLATELET ESTIMATE ADEQUATE; PLATELET MORPHOLOGY NORMAL; TOTAL CELLS COUNTED 100
[2016-04-29] MEDS: levETIRAcetam 500mg/5ml Liquid GT SCH ×2 (09:45→21:47)
[2016-04-29] MEDS: Meropenem 1 GM in NS 110 ML IVPB SCH ×2 (09:47→21:48)
[2016-04-29] MEDS ORDERED: KCl 10% 40mEq/30ml liquid NG ONE (11:00)
[2016-04-29 11:09] VITALS: BP 99/66
[2016-04-29] MEDS ORDERED: Sterile Water Irrig 1000ml IRRIG ONE (14:05)
--- NOTE | 2016-04-29 14:10 | Pulmonology Progress Note ---
Assessment/Plan Assessment/Plan ASSESSMENT severe sepsis with bacteremia (SCON) acute hypoxemic respiratory failure requiring BiPAP aspiration pneumonia dysphagia, G tube seizure disorder anemia acute on chronic encephalopathy DM multiple decub ( sacral, R malleolus) - POA PLAN OF CARE [place] floor supplemental oxygen to keep sat above 92% pulmonary toilet gentle IVF abx ID follows , repeated blood cx preliminary negative aspiration precautions, GT feeding, monitor tolerance seizure precautions, continue Depakote and Keppra, no seizure activity in the hospital noted monitor HH, at baseline, transfuse prn DVT, prophylaxis BS management with SS of insulin wound care as per wound nurse recommendations DNR/DNI status case discussed and evaluated by supervising physician Subjective Allergies: Coded Allergies: NO KNOWN DRUG ALLERGIES (Unverified Allergy, Unknown, 06/01/14) Subjective leukocytosis resolved, afebrile, on VM 35% no signs of respiratory distress Objective Last 24 Hour Vital Signs Date Time Temp Pulse Resp B/P Pulse Ox O2 Delivery O2 Flow Rate FiO2 04/29/16 11:09 98.2 106 20 99/66 100 Nasal Cannula 04/29/16 11:05 102 20 98 Venturi Mask 6.0 35 04/29/16 11:00 101 20 97 Venturi Mask 6.0 35 04/29/16 07:52 97.7 106 20 115/73 98 Nasal Cannula 04/29/16 07:35 102 20 98 Nasal Cannula 3.0 32 04/29/16 07:30 Nasal Cannula 3.0 32 04/29/16 07:30 99 20 97 Nasal Cannula 3.0 32 04/29/16 07:30 97 Nasal Cannula 3.0 32 04/29/16 04:00 99.0 114 20 125/61 95 Nasal Cannula 2.0 04/29/16 02:54 102 20 99 Nasal Cannula 3.0 32 04/29/16 02:48 102 20 97 Nasal Cannula 3.0 32 04/29/16 00:47 110 20 99 Nasal Cannula 3.0 32 04/29/16 00:37 107 20 98 Nasal Cannula 3.0 32 04/29/16 00:00 97.7 110 22 142/77 93 Nasal Cannula 2.0 04/28/16 23:10 95 20 98 Nasal Cannula 3.0 32 04/28/16 23:05 90 20 98 Nasal Cannula 3.0 32 04/28/16 19:16 93 20 98 Nasal Cannula 3.0 32 04/28/16 19:11 Nasal Cannula 3.0 32 04/28/16 19:11 97 Nasal Cannula 3.0 32 04/28/16 19:11 89 20 97 Nasal Cannula 3.0 32 04/28/16 19:00 97.3 58 20 106/70 97 Nasal Cannula 3.0 04/28/16 16:00 97.5 93 18 103/57 98 Nasal Cannula 3.0 04/28/16 16:00 3.0 04/28/16 16:00 96 04/28/16 15:09 86 22 99 Nasal Cannula 3.0 04/28/16 15:06 86 22 99 Nasal Cannula 3.0 Intake and Output 04/28/16 04/29/16 19:00 07:00 Intake Total 890 ml 1745.000 ml Output Total 750 ml 650 ml Balance 140 ml 1095.000 ml Free Water 100 ml 200 ml IV Total 600 ml 1185.000 ml Tube Feeding 90 ml 360 ml Other 100 ml Output Urine Total 750 ml 650 ml General Appearance: other - bedridden, chronically ill looking, poorly resposnive female in NAD HEENT: normocephalic, atraumatic, anicteric, other - VM 35% Respiratory/Chest: lungs clear - with moderate air entry , no respiratory distress, no accessory muscle use Cardiovascular: regular rhythm, tachycardia - 100-110 Abdomen: normal bowel sounds, soft, non tender, non distended, other - G tube Skin: other - multiple decub POA Neurologic/Psychiatric: abnormal gait - bedridden, other - spastic LE, poorly responsive, nonverbal Musculoskeletal: atrophy - BLE, spastic BLE Microbiology Date/Time Source Procedure Growth Status 04/27/16 16:12 Blood Blood Culture - Preliminary NO GROWTH AFTER 24 HOURS Resulted 04/27/16 16:00 Blood Blood Culture - Preliminary NO GROWTH AFTER 24 HOURS Resulted Laboratory Tests 04/29/16 06:10: White Blood Count 2.9L, Red Blood Count 2.93L, Hemoglobin 9.1L, Hematocrit 28.1L , Mean Corpuscular Volume 96, Mean Corpuscular Hemoglobin 31.2H, Mean Corpuscular Hemoglobin Concent 32.5, Red Cell Distribution Width 15.5H, Platelet Count 174, Mean Platelet Volume 7.2, Neutrophils (%) (Auto) , Lymphocytes (%) (Auto) , Monocytes (%) (Auto) , Eosinophils (%) (Auto) , Basophils (%) (Auto) , Differential Total Cells Counted 100, Neutrophils % ( Manual) 68, Lymphocytes % (Manual) 22, Monocytes % (Manual) 10, Eosinophils % ( Manual) 0, Basophils % (Manual) 0, Band Neutrophils 0, Platelet Estimate Adequate, Platelet Morphology Normal, Hypochromasia 2+, Anisocytosis 1+, Sodium Level 141, Potassium Level 3.0L, Chloride Level 102, Carbon Dioxide Level 26, Anion Gap 13, Blood Urea Nitrogen 5L, Creatinine 0.3L, Estimat Glomerular Filtration Rate > 60, Glucose Level 157H, Calcium Level 7.8L, Phosphorus Level 2.7, Magnesium Level 1.9, Total Bilirubin < 0.2, Aspartate Amino Transf (AST/ SGOT) 14, Alanine Aminotransferase (ALT/SGPT) 6, Alkaline Phosphatase 79, Total Protein 5.7L, Albumin 2.1L, Globulin 3.6, Albumin/Globulin Ratio 0.5L Current Medications Medications (Trade) Dose Ordered Sig/Kimo Route PRN Reason Start Time Stop Time Status Last Admin Dose Admin Acetaminophen (Tylenol) 650 mg Q4H PRN ORAL T>100.5 04/28/16 19:00 05/28/16 18:59 Al Hydroxide/Mg Hydroxide (Mylanta II) 30 ml Q6H PRN GT dyspepsia 04/28/16 19:15 05/28/16 19:14 Albuterol/ Ipratropium (DuoNeb 0.5-3(2.5)mg/3ml) 3 ml Q4H PRN HHN Shortness of Breath 04/28/16 19:00 05/03/16 18:59 04/29/16 00:37 Dextrose (Dextrose 50%) STAT PRN IV Hypoglycemia 04/29/16 07:00 05/29/16 06:59 Divalproex Sodium (Depakote Sprinkles) 500 mg Q8HR GT 04/28/16 22:00 05/28/16 21:59 04/29/16 13:43 Heparin Sodium (Porcine) (Heparin 5000 units/ml) 5,000 units EVERY 12 HOURS SUBQ 04/28/16 21:00 05/28/16 20:59 04/29/16 09:00 Insulin Aspart (NovoLOG) EVERY 6 HOURS SUBQ 04/28/16 18:00 05/28/16 17:59 04/29/16 11:53 Levetiracetam (Keppra) 1,500 mg Q12HR GT 04/28/16 21:00 05/28/16 20:59 04/29/16 09:45 Meropenem 1 gm/ Sodium Chloride 110 ml @ 220 mls/hr Q12HR IVPB 04/28/16 21:00 05/03/16 20:59 04/29/16 09:47 Metronidazole (Flagyl) 500 mg Q8HR PEG 04/28/16 22:00 05/05/16 21:59 04/29/16 13:43 Nitroglycerin (Ntg) 0.4 mg Q5M PRN SL Prn Chest Pain 04/28/16 16:20 05/28/16 16:19 Ondansetron HCl (Zofran) 4 mg Q6H PRN IVP Nausea & Vomiting 04/28/16 19:00 05/28/16 18:59 Pantoprazole (Protonix) 40 mg DAILY IVP 04/29/16 09:00 05/29/16 08:59 04/29/16 09:00 Polyethylene Glycol (Miralax) 17 gm DAILYPRN PRN ORAL Constipation 04/29/16 07:00 05/29/16 06:59 Sodium Chloride 1,000 ml @ 100 mls/hr Q10H IV 04/28/16 18:00 05/28/16 17:59 04/29/16 13:41 Temazepam (Restoril) 15 mg HSPRN PRN ORAL Insomnia 04/28/16 21:00 05/05/16 20:59 Vancomycin HCl (Vanco rx to dose) 1 ea DAILY PRN MISC Per rx protocol 04/29/16 09:00 05/29/16 08:59 Vancomycin HCl/ Dextrose (Vancomycin/D5W) 275 ml @ 183.708 mls/hr Q12HR@0200,1400 IVPB 04/29/16 02:00 05/04/16 01:59 04/29/16 13:43 Rodriguez (Alexandrehtein)Susie NP Apr 29, 2016 14:10
[2016-04-29 16:04] VITALS: BP 128/78
[2016-04-29 20:00] VITALS: BP 125/71
[2016-04-30] VITALS: BP 109/69
[2016-04-30] MEDS: NovoLOG Insulin Flexpen SUBQ SCH ×4 (00:26→18:22)
[2016-04-30] MEDS: Vancomycin 1 GM in D5W 275 ML IVPB SCH ×2 (02:26→14:07)
[2016-04-30 04:00] VITALS: BP 131/77
[2016-04-30] MEDS: Depakote 125mg Sprinkles GT SCH ×3 (06:00→21:39)
[2016-04-30] MEDS: metroNIDAZOLE 500mg tab PEG SCH (06:00)
[2016-04-30 06:40] LABS: MEAN CORPUSCULAR HEMOGLOBIN 30.8 PG (27.0-31.0); MEAN CORPUSCULAR HGB CONC 32.3 G/DL (32.0-36.0); MEAN CORPUSCULAR VOLUME 95 FL (80-99); MEAN PLATELET VOLUME 6.6 FL (6.5-10.1); PLATELET COUNT 231 K/UL (150-450); RED BLOOD COUNT 2.94 M/UL (4.20-5.40); RED CELL DISTRIBUTION WIDTH 15.2 % (11.6-14.8); WHITE BLOOD COUNT 2.7 K/UL (4.8-10.8)
[2016-04-30 07:12] LABS: ANION GAP 9 (5-15); CALCIUM 8.1 mg/dL (8.6-10.2); CARBON DIOXIDE 31 mEQ/L (20-30); CHLORIDE 101 mEQ/L (98-107); CREATININE 0.3 mg/dL (0.5-0.9); GLOMERULAR FILTRATION RATE > 60 mL/min (>60); HEMOLYSIS 2; POTASSIUM 3.4 mEQ/L (3.4-4.9); SODIUM 141 mEQ/L (135-145)
[2016-04-30 08:15] VITALS: BP 129/79
[2016-04-30] MEDS: Meropenem 1 GM in NS 110 ML IVPB SCH ×2 (09:07→21:38)
[2016-04-30] MEDS: Pantoprazole Inj IVP SCH (09:08)
[2016-04-30] MEDS: Heparin 5000 units/ml inj SUBQ SCH ×2 (09:10→21:43)
[2016-04-30] MEDS: levETIRAcetam 500mg/5ml Liquid GT SCH ×2 (09:25→21:39)
[2016-04-30 10:14] LABS: LYMPHOCYTES % (MANUAL) 36 % (20-45); NEUTROPHILS % (MANUAL) 59 % (45-75); TOTAL CELLS COUNTED 100
[2016-04-30 10:15] LABS: ANISOCYTOSIS 1+; BAND NEUTROPHILS % (MANUAL) 0 % (0-8); BASOPHILS % (MANUAL) 0 % (0-2); EOSINOPHILS % (MANUAL) 0 % (0-3); PLATELET ESTIMATE ADEQUATE; PLATELET MORPHOLOGY NORMAL
[2016-04-30] MEDS ORDERED: Sterile Water Irrig 1000ml IRRIG ONE (10:38)
[2016-04-30 12:15] VITALS: BP 131/88
--- NOTE | 2016-04-30 13:31 | Infectious Diseases Prog Note ---
Assessment/Plan Assessment/Plan ASSESSMENT: 60 y/o female with: // Recurrent CONS bacteremia ?source - 04/27/16 BCx NGTD - 04/26/16 BCx CONS - 01/02/16 TTE(-) SBE - 12/29/15 BCx VSE.faecalis - 10/03/15 BCx CONS // Possible recurrent aspiration PNA - SCx uncollected, legionella UAg(-) - CXR 04/27: Decreasing right basilar atelectasis. Otherwise little change // Multiple decubiti POA, not grossly infected - surveillance WCx CONS, MRSA, P.mirabilis=colonizers // Recent MRSA UTI SP Rx // Severe sepsis SP - resolved lactic acidosis // Leukocytosis / bandemia - resolved // Low grade fever - resolved // Acute respiratory failure / BiPAP-->FM-->NC // Chronic left hip fx // Thrombocytosis // h/o CVA // Dysphagia SP PEG // Functional quadriplegia / bedbound // NKDA // DNR PLAN: - continue IV vancomycin, meropenem d# 5 / 10. DC flagyl d# 5 ( 04/26 SP cefepime d# 1 ) ( 04/14 SP IV vancomycin, cefepime d# 7 / ) - f/u cultures - monitor CBC, temperatures - monitor BMP - monitor CXR - wound care - aspiration precautions Subjective Allergies: Coded Allergies: NO KNOWN DRUG ALLERGIES (Unverified Allergy, Unknown, 06/01/14) Subjective fevers, leukocytosis resolved repeat BCx NGTD Objective Vital Signs Last 24 Hour Vital Signs Date Time Temp Pulse Resp B/P Pulse Ox O2 Delivery O2 Flow Rate FiO2 04/30/16 12:15 98.6 116 21 131/88 96 Nasal Cannula 5.0 04/30/16 11:08 103 20 98 Venturi Mask 6.0 35 04/30/16 11:08 104 19 98 Venturi Mask 6.0 35 04/30/16 08:15 98.3 113 21 129/79 93 5.0 04/30/16 07:09 101 20 98 Venturi Mask 6.0 35 04/30/16 07:09 Venturi Mask 35 04/30/16 07:09 98 Venturi Mask 6.0 35 04/30/16 07:09 102 19 98 Venturi Mask 6.0 35 04/30/16 04:00 108 24 98 Venturi Mask 6.0 35 04/30/16 04:00 98.4 109 20 131/77 98 Venturi Mask 04/30/16 04:00 104 24 97 Venturi Mask 6.0 35 04/30/16 00:00 98.1 107 20 109/69 97 Venturi Mask 4.0 04/29/16 23:10 120 24 98 Venturi Mask 6.0 35 04/29/16 23:10 116 24 97 Venturi Mask 6.0 35 04/29/16 20:00 97.7 118 24 125/71 93 Venturi Mask 04/29/16 19:33 128 24 99 Venturi Mask 6.0 35 04/29/16 19:32 126 24 98 Venturi Mask 6.0 35 04/29/16 19:31 Venturi Mask 6.0 35 04/29/16 19:28 98 Venturi Mask 6.0 35 04/29/16 16:04 97.5 102 18 128/78 98 Nasal Cannula 04/29/16 15:07 98 22 97 Venturi Mask 6.0 35 04/29/16 15:02 98 22 98 Venturi Mask 6.0 35 Height (Feet): 5 Height (Inches): 6.00 Weight (Pounds): 153 General Appearance: no acute distress Respiratory/Chest: no respiratory distress Cardiovascular: normal rate, regular rhythm Abdomen: normal bowel sounds, soft, non tender, non distended Microbiology Date/Time Source Procedure Growth Status 04/27/16 16:12 Blood Blood Culture - Preliminary NO GROWTH AFTER 48 HOURS Resulted 04/27/16 16:00 Blood Blood Culture - Preliminary NO GROWTH AFTER 48 HOURS Resulted Laboratory Tests Test 04/30/16 06:00 White Blood Count 2.7 K/UL (4.8-10.8) L Red Blood Count 2.94 M/UL (4.20-5.40) L Hemoglobin 9.1 G/DL (12.0-16.0) L Hematocrit 28.1 % (37.0-47.0) L Mean Corpuscular Volume 95 FL (80-99) Mean Corpuscular Hemoglobin 30.8 PG (27.0-31.0) Mean Corpuscular Hemoglobin Concent 32.3 G/DL (32.0-36.0) Red Cell Distribution Width 15.2 % (11.6-14.8) H Platelet Count 231 K/UL (150-450) Mean Platelet Volume 6.6 FL (6.5-10.1) Neutrophils (%) (Auto) % (45.0-75.0) Lymphocytes (%) (Auto) % (20.0-45.0) Monocytes (%) (Auto) % (1.0-10.0) Eosinophils (%) (Auto) % (0.0-3.0) Basophils (%) (Auto) % (0.0-2.0) Differential Total Cells Counted 100 Neutrophils % (Manual) 59 % (45-75) Lymphocytes % (Manual) 36 % (20-45) Monocytes % (Manual) 5 % (1-10) Eosinophils % (Manual) 0 % (0-3) Basophils % (Manual) 0 % (0-2) Band Neutrophils 0 % (0-8) Platelet Estimate Adequate Platelet Morphology Normal Anisocytosis 1+ Sodium Level 141 mEQ/L (135-145) Potassium Level 3.4 mEQ/L (3.4-4.9) Chloride Level 101 mEQ/L (98-107) Carbon Dioxide Level 31 mEQ/L (20-30) H Anion Gap 9 (5-15) Blood Urea Nitrogen 4 mg/dL (7-23) L Creatinine 0.3 mg/dL (0.5-0.9) L Estimat Glomerular Filtration Rate > 60 mL/min (>60) Glucose Level 161 mg/dL (74-106) H Calcium Level 8.1 mg/dL (8.6-10.2) L Current Medications Medications (Trade) Dose Ordered Sig/Kimo Route PRN Reason Start Time Stop Time Status Last Admin Dose Admin Acetaminophen (Tylenol) 650 mg Q4H PRN ORAL T>100.5 04/28/16 19:00 05/28/16 18:59 Al Hydroxide/Mg Hydroxide (Mylanta II) 30 ml Q6H PRN GT dyspepsia 04/28/16 19:15 05/28/16 19:14 Albuterol/ Ipratropium (DuoNeb 0.5-3(2.5)mg/3ml) 3 ml Q4H PRN HHN Shortness of Breath 04/28/16 19:00 05/03/16 18:59 04/29/16 00:37 Dextrose (Dextrose 50%) STAT PRN IV Hypoglycemia 04/29/16 07:00 05/29/16 06:59 Divalproex Sodium (Depakote Sprinkles) 500 mg Q8HR GT 04/28/16 22:00 05/28/16 21:59 04/30/16 06:00 Heparin Sodium (Porcine) (Heparin 5000 units/ml) 5,000 units EVERY 12 HOURS SUBQ 04/28/16 21:00 05/28/16 20:59 04/30/16 09:10 Insulin Aspart (NovoLOG) EVERY 6 HOURS SUBQ 04/28/16 18:00 05/28/16 17:59 04/30/16 12:15 Levetiracetam (Keppra) 1,500 mg Q12HR GT 04/28/16 21:00 05/28/16 20:59 04/30/16 09:25 Meropenem 1 gm/ Sodium Chloride 110 ml @ 220 mls/hr Q12HR IVPB 04/28/16 21:00 05/03/16 20:59 04/30/16 09:07 Metronidazole (Flagyl) 500 mg Q8HR PEG 04/28/16 22:00 05/05/16 21:59 04/30/16 06:00 Nitroglycerin (Ntg) 0.4 mg Q5M PRN SL Prn Chest Pain 04/28/16 16:20 05/28/16 16:19 Ondansetron HCl (Zofran) 4 mg Q6H PRN IVP Nausea & Vomiting 04/28/16 19:00 05/28/16 18:59 Pantoprazole (Protonix) 40 mg DAILY IVP 04/29/16 09:00 05/29/16 08:59 04/30/16 09:08 Polyethylene Glycol (Miralax) 17 gm DAILYPRN PRN ORAL Constipation 04/29/16 07:00 05/29/16 06:59 Sodium Chloride (Sodium Chloride 1000ml bag) 1,000 ml @ 75 mls/hr [id number] IV 04/29/16 15:00 05/29/16 14:59 04/30/16 04:20 Temazepam (Restoril) 15 mg HSPRN PRN ORAL Insomnia 04/28/16 21:00 05/05/16 20:59 Vancomycin HCl 1 ea 1 ea DAILY PRN MISC Per rx protocol 04/29/16 09:00 05/29/16 08:59 Vancomycin HCl/ Dextrose (Vancomycin/D5W) 275 ml @ 183.708 mls/hr Q12HR@0200,1400 IVPB 04/29/16 02:00 05/04/16 01:59 04/30/16 02:26 AUGUSTO CASON Apr 30, 2016 13:31
--- NOTE | 2016-04-30 14:16 | Pulmonology Progress Note ---
Assessment/Plan Assessment/Plan ASSESSMENT severe sepsis with bacteremia (SCON) acute hypoxemic respiratory failure requiring BiPAP aspiration pneumonia dysphagia, G tube seizure disorder anemia acute on chronic encephalopathy DM multiple decub ( sacral, R malleolus) - POA PLAN OF CARE [place] floor supplemental oxygen to keep sat above 92% pulmonary toilet gentle IVF abx ID follows , repeated blood cx preliminary negative aspiration precautions, GT feeding, monitor tolerance seizure precautions, continue Depakote and Keppra, no seizure activity in the hospital noted monitor HH, at baseline, transfuse prn DVT, prophylaxis BS management with SS of insulin wound care as per wound nurse recommendations DNR/DNI status case discussed and evaluated by supervising physician Subjective Allergies: Coded Allergies: NO KNOWN DRUG ALLERGIES (Unverified Allergy, Unknown, 06/01/14) Subjective leukocytosis resolved, actually leukopenic now, afebrile, on 5L NC sat stable no signs of respiratory distress Objective Last 24 Hour Vital Signs Date Time Temp Pulse Resp B/P Pulse Ox O2 Delivery O2 Flow Rate FiO2 04/30/16 12:15 98.6 116 21 131/88 96 Nasal Cannula 5.0 04/30/16 11:08 103 20 98 Venturi Mask 6.0 35 04/30/16 11:08 104 19 98 Venturi Mask 6.0 35 04/30/16 08:15 98.3 113 21 129/79 93 5.0 04/30/16 07:09 101 20 98 Venturi Mask 6.0 35 04/30/16 07:09 Venturi Mask 35 04/30/16 07:09 98 Venturi Mask 6.0 35 04/30/16 07:09 102 19 98 Venturi Mask 6.0 35 04/30/16 04:00 108 24 98 Venturi Mask 6.0 35 04/30/16 04:00 98.4 109 20 131/77 98 Venturi Mask 04/30/16 04:00 104 24 97 Venturi Mask 6.0 35 04/30/16 00:00 98.1 107 20 109/69 97 Venturi Mask 4.0 04/29/16 23:10 120 24 98 Venturi Mask 6.0 35 04/29/16 23:10 116 24 97 Venturi Mask 6.0 35 04/29/16 20:00 97.7 118 24 125/71 93 Venturi Mask 04/29/16 19:33 128 24 99 Venturi Mask 6.0 35 04/29/16 19:32 126 24 98 Venturi Mask 6.0 35 04/29/16 19:31 Venturi Mask 6.0 35 04/29/16 19:28 98 Venturi Mask 6.0 35 04/29/16 16:04 97.5 102 18 128/78 98 Nasal Cannula 04/29/16 15:07 98 22 97 Venturi Mask 6.0 35 04/29/16 15:02 98 22 98 Venturi Mask 6.0 35 Intake and Output 04/29/16 04/30/16 19:00 07:00 Intake Total 1250 ml 825 ml Output Total 400 ml 1400 ml Balance 850 ml -575 ml Free Water 100 ml 250 ml IV Total 800 ml 395 ml Tube Feeding 350 ml 180 ml Output Urine Total 400 ml 1400 ml Objective General Appearance: other - bedridden, chronically ill looking, poorly responsive female in NAD HEENT: normocephalic, atraumatic, anicteric, O2 via NC Respiratory/Chest: lungs clear - with moderate air entry , no respiratory distress, no accessory muscle use Cardiovascular: regular rhythm, tachycardia - 100-110 Abdomen: normal bowel sounds, soft, non tender, non distended, G tube Skin: other - multiple decub POA Neurologic/Psychiatric: abnormal gait - bedridden, other - spastic LE, poorly responsive, nonverbal Musculoskeletal: atrophy - BLE, spastic BLE Microbiology Date/Time Source Procedure Growth Status 04/27/16 16:12 Blood Blood Culture - Preliminary NO GROWTH AFTER 48 HOURS Resulted 04/27/16 16:00 Blood Blood Culture - Preliminary NO GROWTH AFTER 48 HOURS Resulted Laboratory Tests 04/30/16 06:00: White Blood Count 2.7L, Red Blood Count 2.94L, Hemoglobin 9.1L, Hematocrit 28.1L , Mean Corpuscular Volume 95, Mean Corpuscular Hemoglobin 30.8, Mean Corpuscular Hemoglobin Concent 32.3, Red Cell Distribution Width 15.2H, Platelet Count 231, Mean Platelet Volume 6.6, Neutrophils (%) (Auto) , Lymphocytes (%) (Auto) , Monocytes (%) (Auto) , Eosinophils (%) (Auto) , Basophils (%) (Auto) , Differential Total Cells Counted 100, Neutrophils % ( Manual) 59, Lymphocytes % (Manual) 36, Monocytes % (Manual) 5, Eosinophils % ( Manual) 0, Basophils % (Manual) 0, Band Neutrophils 0, Platelet Estimate Adequate, Platelet Morphology Normal, Anisocytosis 1+, Sodium Level 141, Potassium Level 3.4, Chloride Level 101, Carbon Dioxide Level 31H, Anion Gap 9, Blood Urea Nitrogen 4L, Creatinine 0.3L, Estimat Glomerular Filtration Rate > 60 , Glucose Level 161H, Calcium Level 8.1L Current Medications Medications (Trade) Dose Ordered Sig/Kimo Route PRN Reason Start Time Stop Time Status Last Admin Dose Admin Acetaminophen (Tylenol) 650 mg Q4H PRN ORAL T>100.5 04/28/16 19:00 05/28/16 18:59 Al Hydroxide/Mg Hydroxide (Mylanta II) 30 ml Q6H PRN GT dyspepsia 04/28/16 19:15 05/28/16 19:14 Albuterol/ Ipratropium (DuoNeb 0.5-3(2.5)mg/3ml) 3 ml Q4H PRN HHN Shortness of Breath 04/28/16 19:00 05/03/16 18:59 04/29/16 00:37 Dextrose (Dextrose 50%) STAT PRN IV Hypoglycemia 04/29/16 07:00 05/29/16 06:59 Divalproex Sodium (Depakote Sprinkles) 500 mg Q8HR GT 04/28/16 22:00 05/28/16 21:59 04/30/16 14:06 Heparin Sodium (Porcine) (Heparin 5000 units/ml) 5,000 units EVERY 12 HOURS SUBQ 04/28/16 21:00 05/28/16 20:59 04/30/16 09:10 Insulin Aspart (NovoLOG) EVERY 6 HOURS SUBQ 04/28/16 18:00 05/28/16 17:59 04/30/16 12:15 Levetiracetam (Keppra) 1,500 mg Q12HR GT 04/28/16 21:00 05/28/16 20:59 04/30/16 09:25 Meropenem 1 gm/ Sodium Chloride 110 ml @ 220 mls/hr Q12HR IVPB 04/28/16 21:00 05/03/16 20:59 04/30/16 09:07 Nitroglycerin (Ntg) 0.4 mg Q5M PRN SL Prn Chest Pain 04/28/16 16:20 05/28/16 16:19 Ondansetron HCl (Zofran) 4 mg Q6H PRN IVP Nausea & Vomiting 04/28/16 19:00 05/28/16 18:59 Pantoprazole (Protonix) 40 mg DAILY IVP 04/29/16 09:00 05/29/16 08:59 04/30/16 09:08 Polyethylene Glycol (Miralax) 17 gm DAILYPRN PRN ORAL Constipation 04/29/16 07:00 05/29/16 06:59 Sodium Chloride (Sodium Chloride 1000ml bag) 1,000 ml @ 75 mls/hr [id number] IV 04/29/16 15:00 05/29/16 14:59 04/30/16 04:20 Temazepam (Restoril) 15 mg HSPRN PRN ORAL Insomnia 04/28/16 21:00 05/05/16 20:59 Vancomycin HCl 1 ea 1 ea DAILY PRN MISC Per rx protocol 04/29/16 09:00 05/29/16 08:59 Vancomycin HCl/ Dextrose (Vancomycin/D5W) 275 ml @ 183.708 mls/hr Q12HR@0200,1400 IVPB 04/29/16 02:00 05/04/16 01:59 04/30/16 14:07 Susie Frias NP ([facility]) Apr 30, 2016 14:16
[2016-04-30 16:00] VITALS: BP 139/78
[2016-04-30 19:00] VITALS: BP 126/84
[2016-05-01] VITALS: BP 141/103
[2016-05-01] MEDS: NovoLOG Insulin Flexpen SUBQ SCH ×4 (00:24→17:21)
[2016-05-01] MEDS: Vancomycin 1 GM in D5W 275 ML IVPB SCH ×2 (02:23→14:00)
[2016-05-01] MEDS: DuoNeb 0.5-3(2.5)mg/3ml neb HHN PRN (03:57)
[2016-05-01 04:00] VITALS: BP 138/67
[2016-05-01] MEDS: Depakote 125mg Sprinkles GT SCH ×2 (05:41→13:59)
[2016-05-01 08:00] VITALS: BP 138/88
[2016-05-01] MEDS: Meropenem 1 GM in NS 110 ML IVPB SCH ×2 (08:56→21:10)
[2016-05-01] MEDS: Pantoprazole Inj IVP SCH (08:56)
[2016-05-01] MEDS: levETIRAcetam 500mg/5ml Liquid GT SCH ×2 (08:57→21:10)
[2016-05-01] MEDS: Heparin 5000 units/ml inj SUBQ SCH ×2 (08:58→21:16)
[2016-05-01 12:00] VITALS: BP 130/64
--- NOTE | 2016-05-01 15:30 | Infectious Diseases Prog Note ---
Assessment/Plan Assessment/Plan ASSESSMENT: 60 y/o female with: // Recurrent CONS bacteremia ?source - 04/27/16 BCx NGTD - 04/26/16 BCx CONS - 01/02/16 TTE(-) SBE - 12/29/15 BCx VSE.faecalis - 10/03/15 BCx CONS // Possible recurrent aspiration PNA - SCx uncollected, legionella UAg(-) - CXR 04/27: Decreasing right basilar atelectasis. Otherwise little change // Multiple decubiti POA, not grossly infected - surveillance WCx CONS, MRSA, P.mirabilis=colonizers // Recent MRSA UTI SP Rx // Severe sepsis SP - resolved lactic acidosis // Leukocytosis / bandemia - resolved // Low grade fever - resolved // Acute respiratory failure / BiPAP-->FM-->NC // Chronic left hip fx // Thrombocytosis // h/o CVA // Dysphagia SP PEG // Functional quadriplegia / bedbound // NKDA // DNR PLAN: - continue IV vancomycin, meropenem d# 6 / 10 - ok to complete at CT ( 04/30 SP flagyl d# 5 ) ( 04/26 SP cefepime d# 1 ) ( 04/14 SP IV vancomycin, cefepime d# 7 / 7 ) - f/u final cultures - monitor CBC, temperatures - monitor BMP - monitor CXR - wound care - aspiration precautions Subjective Allergies: Coded Allergies: NO KNOWN DRUG ALLERGIES (Unverified Allergy, Unknown, 06/01/14) Subjective fevers, leukocytosis resolved repeat BCx NGTD Objective Vital Signs Last 24 Hour Vital Signs Date Time Temp Pulse Resp B/P Pulse Ox O2 Delivery O2 Flow Rate FiO2 05/01/16 14:58 109 21 96 Venturi Mask 6.0 35 05/01/16 14:50 106 20 96 Venturi Mask 6.0 35 05/01/16 12:00 97.3 106 26 130/64 Venturi Mask 05/01/16 11:02 111 21 96 Venturi Mask 6.0 35 05/01/16 10:59 107 20 96 Venturi Mask 6.0 35 05/01/16 08:00 97.7 114 28 138/88 98 Venturi Mask 05/01/16 07:14 104 20 97 Venturi Mask 6.0 35 05/01/16 07:14 101 21 97 Venturi Mask 6.0 35 05/01/16 07:13 98 Venturi Mask 6.0 35 05/01/16 07:13 Venturi Mask 6.0 35 05/01/16 04:10 112 20 99 Venturi Mask 6.0 35 05/01/16 04:00 98.2 117 19 138/67 98 Room Air 05/01/16 03:57 110 24 98 Venturi Mask 6.0 35 05/01/16 02:29 98 22 97 Venturi Mask 6.0 35 05/01/16 02:29 101 20 97 Venturi Mask 6.0 35 05/01/16 00:00 97.0 116 18 141/103 96 Room Air 04/30/16 23:31 102 20 98 Venturi Mask 6.0 35 04/30/16 23:31 103 20 99 Venturi Mask 6.0 35 04/30/16 19:28 118 20 98 Venturi Mask 6.0 35 04/30/16 19:28 Venturi Mask 35 04/30/16 19:28 112 20 98 Venturi Mask 6.0 35 04/30/16 19:27 98 Venturi Mask 6.0 35 04/30/16 19:00 98.2 100 20 126/84 99 Venturi Mask 6.0 04/30/16 16:00 98.2 100 18 139/78 99 Venturi Mask 6.0 Height (Feet): 5 Height (Inches): 6.00 Weight (Pounds): 153 General Appearance: no acute distress Respiratory/Chest: no respiratory distress Cardiovascular: normal rate, regular rhythm Abdomen: normal bowel sounds, soft, non tender, non distended Current Medications Medications (Trade) Dose Ordered Sig/Kimo Route PRN Reason Start Time Stop Time Status Last Admin Dose Admin Acetaminophen (Tylenol) 650 mg Q4H PRN ORAL T>100.5 04/28/16 19:00 05/28/16 18:59 Al Hydroxide/Mg Hydroxide (Mylanta II) 30 ml Q6H PRN GT dyspepsia 04/28/16 19:15 05/28/16 19:14 Albuterol/ Ipratropium (DuoNeb 0.5-3(2.5)mg/3ml) 3 ml Q4H PRN HHN Shortness of Breath 04/28/16 19:00 05/03/16 18:59 05/01/16 03:57 Dextrose (Dextrose 50%) STAT PRN IV Hypoglycemia 04/29/16 07:00 05/29/16 06:59 Divalproex Sodium (Depakote Sprinkles) 500 mg Q8HR GT 04/28/16 22:00 05/28/16 21:59 05/01/16 13:59 Heparin Sodium (Porcine) (Heparin 5000 units/ml) 5,000 units EVERY 12 HOURS SUBQ 04/28/16 21:00 05/28/16 20:59 05/01/16 08:58 Insulin Aspart (NovoLOG) EVERY 6 HOURS SUBQ 04/28/16 18:00 05/28/16 17:59 05/01/16 12:23 Levetiracetam (Keppra) 1,500 mg Q12HR GT 04/28/16 21:00 05/28/16 20:59 05/01/16 08:57 Meropenem 1 gm/ Sodium Chloride 110 ml @ 220 mls/hr Q12HR IVPB 04/28/16 21:00 05/03/16 20:59 05/01/16 08:56 Nitroglycerin (Ntg) 0.4 mg Q5M PRN SL Prn Chest Pain 04/28/16 16:20 05/28/16 16:19 Ondansetron HCl (Zofran) 4 mg Q6H PRN IVP Nausea & Vomiting 04/28/16 19:00 05/28/16 18:59 Pantoprazole (Protonix) 40 mg DAILY IVP 04/29/16 09:00 05/29/16 08:59 05/01/16 08:56 Polyethylene Glycol (Miralax) 17 gm DAILYPRN PRN ORAL Constipation 04/29/16 07:00 05/29/16 06:59 Sodium Chloride (Sodium Chloride 1000ml bag) 1,000 ml @ 75 mls/hr [id number] IV 04/29/16 15:00 05/29/16 14:59 05/01/16 14:51 Temazepam (Restoril) 15 mg HSPRN PRN ORAL Insomnia 04/28/16 21:00 05/05/16 20:59 Vancomycin HCl 1 ea 1 ea DAILY PRN MISC Per rx protocol 04/29/16 09:00 05/29/16 08:59 Vancomycin HCl/ Dextrose (Vancomycin/D5W) 275 ml @ 183.708 mls/hr Q12HR@0200,1400 IVPB 04/29/16 02:00 05/04/16 01:59 05/01/16 14:00 AUGUSTO CASON May 01, 2016 15:30
[2016-05-01 16:00] VITALS: BP 127/74
[2016-05-01] MEDS ORDERED: VANCOMYCIN1 GM/2502 IVPB (16:42)
[2016-05-01] MEDS ORDERED: MEROPENEM1 GM IV (16:43)
--- NOTE | 2016-05-01 16:45 | Pulmonology Progress Note ---
Assessment/Plan Problems: (1) Acute respiratory failure (2) Severe sepsis (3) Aspiration pneumonia (4) G tube feedings (5) Cerebral vascular disease (6) Seizure disorder (7) Anemia Assessment/Plan improving continue antibiotics check cultures med/surg dc planning to sunray with Vanco and Meropenem Subjective ROS Limited/Unobtainable: Yes Allergies: Coded Allergies: NO KNOWN DRUG ALLERGIES (Unverified Allergy, Unknown, 06/01/14) Objective Last 24 Hour Vital Signs Date Time Temp Pulse Resp B/P Pulse Ox O2 Delivery O2 Flow Rate FiO2 05/01/16 16:00 98.1 111 24 127/74 98 Venturi Mask 6.0 05/01/16 14:58 109 21 96 Venturi Mask 6.0 35 05/01/16 14:50 106 20 96 Venturi Mask 6.0 35 05/01/16 12:00 97.3 106 26 130/64 Venturi Mask 05/01/16 11:02 111 21 96 Venturi Mask 6.0 35 05/01/16 10:59 107 20 96 Venturi Mask 6.0 35 05/01/16 08:00 97.7 114 28 138/88 98 Venturi Mask 05/01/16 07:14 104 20 97 Venturi Mask 6.0 35 05/01/16 07:14 101 21 97 Venturi Mask 6.0 35 05/01/16 07:13 98 Venturi Mask 6.0 35 05/01/16 07:13 Venturi Mask 6.0 35 05/01/16 04:10 112 20 99 Venturi Mask 6.0 35 05/01/16 04:00 98.2 117 19 138/67 98 Room Air 05/01/16 03:57 110 24 98 Venturi Mask 6.0 35 05/01/16 02:29 98 22 97 Venturi Mask 6.0 35 05/01/16 02:29 101 20 97 Venturi Mask 6.0 35 05/01/16 00:00 97.0 116 18 141/103 96 Room Air 04/30/16 23:31 102 20 98 Venturi Mask 6.0 35 04/30/16 23:31 103 20 99 Venturi Mask 6.0 35 04/30/16 19:28 118 20 98 Venturi Mask 6.0 35 04/30/16 19:28 Venturi Mask 35 04/30/16 19:28 112 20 98 Venturi Mask 6.0 35 04/30/16 19:27 98 Venturi Mask 6.0 35 04/30/16 19:00 98.2 100 20 126/84 99 Venturi Mask 6.0 Intake and Output 04/30/16 05/01/16 19:00 07:00 Intake Total 788.000 ml 1933.708 ml Output Total 400 ml 2200 ml Balance 388.000 ml -266.292 ml Free Water 200 ml IV Total 538.000 ml 1083.708 ml Tube Feeding 250 ml 650 ml Output Urine Total 400 ml 2200 ml # Bowel Movements 2 Objective on venturi mask General Appearance: WD/WN HEENT: normocephalic, atraumatic Respiratory/Chest: chest wall non-tender, lungs clear Cardiovascular: normal peripheral pulses, regular rhythm Abdomen: normal bowel sounds, non distended Extremities: no clubbing Skin: no rash Current Medications Medications (Trade) Dose Ordered Sig/Kimo Route PRN Reason Start Time Stop Time Status Last Admin Dose Admin Acetaminophen (Tylenol) 650 mg Q4H PRN ORAL T>100.5 04/28/16 19:00 05/28/16 18:59 Al Hydroxide/Mg Hydroxide (Mylanta II) 30 ml Q6H PRN GT dyspepsia 04/28/16 19:15 05/28/16 19:14 Albuterol/ Ipratropium (DuoNeb 0.5-3(2.5)mg/3ml) 3 ml Q4H PRN HHN Shortness of Breath 04/28/16 19:00 05/03/16 18:59 05/01/16 03:57 Dextrose (Dextrose 50%) STAT PRN IV Hypoglycemia 04/29/16 07:00 05/29/16 06:59 Heparin Sodium (Porcine) (Heparin 5000 units/ml) 5,000 units EVERY 12 HOURS SUBQ 04/28/16 21:00 05/28/16 20:59 05/01/16 08:58 Insulin Aspart (NovoLOG) EVERY 6 HOURS SUBQ 04/28/16 18:00 05/28/16 17:59 05/01/16 12:23 Levetiracetam (Keppra) 1,500 mg Q12HR GT 04/28/16 21:00 05/28/16 20:59 05/01/16 08:57 Meropenem 1 gm/ Sodium Chloride 110 ml @ 220 mls/hr Q12HR IVPB 04/28/16 21:00 05/03/16 20:59 05/01/16 08:56 Nitroglycerin (Ntg) 0.4 mg Q5M PRN SL Prn Chest Pain 04/28/16 16:20 05/28/16 16:19 Ondansetron HCl (Zofran) 4 mg Q6H PRN IVP Nausea & Vomiting 04/28/16 19:00 05/28/16 18:59 Pantoprazole (Protonix) 40 mg DAILY IVP 04/29/16 09:00 05/29/16 08:59 05/01/16 08:56 Polyethylene Glycol (Miralax) 17 gm DAILYPRN PRN ORAL Constipation 04/29/16 07:00 05/29/16 06:59 Sodium Chloride (Sodium Chloride 1000ml bag) 1,000 ml @ 75 mls/hr [id number] IV 04/29/16 15:00 05/29/16 14:59 05/01/16 14:51 Temazepam (Restoril) 15 mg HSPRN PRN ORAL Insomnia 04/28/16 21:00 05/05/16 20:59 Valproic Acid (Depakene) 250 mg Q8HR GT 05/01/16 22:00 05/31/16 21:59 Vancomycin HCl 1 ea 1 ea DAILY PRN MISC Per rx protocol 04/29/16 09:00 05/29/16 08:59 Vancomycin HCl/ Dextrose (Vancomycin/D5W) 275 ml @ 183.708 mls/hr Q12HR@0200,1400 IVPB 04/29/16 02:00 05/04/16 01:59 05/01/16 14:00 BISHOP PENA May 01, 2016 16:45
[2016-05-01] MEDS ORDERED: Tubing IV Secondary IV ONE (17:03)
[2016-05-01 20:00] VITALS: BP 122/75
[2016-05-01] MEDS: Valproic Acid 250mg/5ml Liquid GT SCH (21:09)
[2016-05-02] VITALS: BP 115/76
[2016-05-02] MEDS: NovoLOG Insulin Flexpen SUBQ SCH ×2 (01:01→05:28)
[2016-05-02] MEDS: Vancomycin 1 GM in D5W 275 ML IVPB SCH (02:07)
[2016-05-02 04:00] VITALS: BP 115/78
[2016-05-02] MEDS: Valproic Acid 250mg/5ml Liquid GT SCH (05:27)
[2016-05-02 05:59] VITALS: BP 136/89
[2016-05-02 07:50] VITALS: BP 153/68
[2016-05-02] MEDS: Meropenem 1 GM in NS 110 ML IVPB SCH (09:30)
[2016-05-02] MEDS: levETIRAcetam 500mg/5ml Liquid GT SCH (09:31)
[2016-05-02] MEDS: Pantoprazole Inj IVP SCH (09:31)
[2016-05-02] MEDS: Heparin 5000 units/ml inj SUBQ SCH (09:32)
[2016-05-02] MEDS: DuoNeb 0.5-3(2.5)mg/3ml neb HHN PRN (11:10)
[2016-05-02 11:33] VITALS: BP 124/79
--- NOTE | 2016-05-04 10:11 | Discharge Summary ---
Discharge Summary Hospital Course Date of Admission Apr 26, 2016 at 01:09 Date of Discharge May 02, 2016 at 13:09 Admitting Diagnosis respiratory distress HPI Joselyn Galaviz is a 60 year old female who was admitted on Apr 26, 2016 at 01:09 for Respiratory Distress Hospital Course [id number] Discharge Discharge Disposition Patient was discharged to SNF/Subacute Facility(03) Discharge Diagnoses: Vee Fernnades NP May 04, 2016 10:11
--- NOTE | 2016-05-05 01:58 | Discharge Summary 2 SIG ---
DATE OF ADMISSION: 04/26/2016 DATE OF DISCHARGE: 05/02/2016 QUALITY AND RELIABILITY ENGINEER: Zi Shelby M.D. BRIEF HOSPITAL COURSE: The patient is a 60-year-old female, who has history of CVA, bed bound, PEG, and fdc resident, was brought in by paramedics because of tachycardia. Oxygen saturations were low in the 80s and improved on Ambu bagging. On arrival to ED, she was placed on the BiPAP. Central line was placed to the right femoral area. Chest x-ray showed cardiomegaly. Laboratories showed significant leukocytosis. Troponins were negative. BNP was elevated. The patient is DNR and DNI and was admitted to [facility] for severe sepsis and encephalopathy. Dr. Shelby was consulted. The patient was pancultured and was started empirically on vancomycin and cefepime. 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 Wound care was rendered. The G-tube feeding was started with strict aspiration precaution. She was given seizure precautions and was continued on Depakote and Keppra. No seizure activity was noted while in the hospital. BiPAP was eventually tapered off to nasal cannula and the patient was cleared for discharge back to fdc to continue antibiotic treatment, IV vancomycin, and meropenem. FINAL DIAGNOSES: 1. Acute respiratory failure. 2. Severe sepsis with recurrent coagulase negative Staph bacteremia. 3. Possible recurrent aspiration pneumonia. 4. Multiple decubitus pressure ulcer, not grossly infected, present on admission. 5. Chronic left hip fracture. 6. Cerebrovascular accident with functional quadriplegia/bed-bound. 7. Dysphagia status post percutaneous endoscopic gastrostomy. 8. Diabetes mellitus. 9. Acute on chronic metabolic encephalopathy. 10. Anemia. 11. Seizure disorder. 12. DNR status. Aida Lopez M.D. I have been assigned to dictate discharge summary on this account and I was not involved in the patient's management. Vee Fernandes N.P. DR: SUAD JOB#: [id number] CC: NAYELI
== END 2016-05-02 13:09 | DRG 720 ==
LOC: EDBD 00:10 → EDUNIT# 00:10 → EMR 00:45 → 2W 01:09 → EDBEDREQ 01:20 → 4E 04-28 16:17
PROC: 06HM33Z Insertion of Infusion Device into Right Femoral Vein, Percutaneous Approach (ICD-10-PCS; 2016-04-26)
PROC: 5A09357 Assistance with Respiratory Ventilation, Less than 24 Consecutive Hours, Continuous Positive Airway Pressure (ICD-10-PCS; principal; 2016-04-27)
DX: A41.1 Sepsis due to other specified staphylococcus (principal); J96.00 Acute respiratory failure, unspecified whether with hypoxia or hypercapnia; J69.0 Pneumonitis due to inhalation of food and vomit; G93.41 Metabolic encephalopathy; L89.154 Pressure ulcer of sacral region, stage 4; L89.524 Pressure ulcer of left ankle, stage 4; L89.514 Pressure ulcer of right ankle, stage 4; L89.893 Pressure ulcer of other site, stage 3; R53.2 Functional quadriplegia; R13.10 Dysphagia, unspecified; I67.9 Cerebrovascular disease, unspecified; G40.909 Epilepsy, unspecified, not intractable, without status epilepticus; D64.9 Anemia, unspecified; Z66 Do not resuscitate; R65.20 Severe sepsis without septic shock; L89.90 Pressure ulcer of unspecified site, unspecified stage; S72.002D Fracture of unspecified part of neck of left femur, subsequent encounter for closed fracture with routine healing; I69.365 Other paralytic syndrome following cerebral infarction, bilateral; E11.9 Type 2 diabetes mellitus without complications; Z43.1 Encounter for attention to gastrostomy; D47.3 Essential (hemorrhagic) thrombocythemia
CPT/HCPCS: 36415; 36600; 71010; 80048; 80053; 80069; 80202; 80299; 81003; 82164; 82550; 82553; 82803; 82962; 83605; 83735; 83880; 84100; 84484; 85007; 85025; 85610; 85730; 87040; 87070; 87081; 87181; 87205; 93005; 94640; 94660; 94760; J1815; J7620

== ENCOUNTER 2016-05-13 19:42 | Emergency (ER) | payer OTHER ==
[~2016-05-13] VITALS: Ht 165.1 cm; Wt 72.6 kg
[~2016-05-13 19:42] MED LIST changes: +MEROPENEM1 GM IV
[2016-05-13 19:52] VITALS: BP 130/74
[2016-05-13 20:55] VITALS: BP 130/74
--- NOTE | 2016-05-13 23:27 | Emergency Room Report ---
History of Present Illness General Chief Complaint: Malfunctioning Gastric Tube Source: Patient, EMS Present Illness HPI Patient is a 60-year-old female sent in by detention for G-tube replacement. The patient had reportedly pulled at her G-tube. This had been replaced a Belle catheter. Patient denied getting IV antibiotics for recurrent infections. Patient had the been noted to have a DO NOT RESUSCITATE status. Allergies: Coded Allergies: NO KNOWN DRUG ALLERGIES (Unverified Allergy, Unknown, 06/01/14) Patient History Past Medical History: see triage record Reviewed Nursing Documentation: PMH: Agreed, PSxH: Agreed Nursing Documentation-PMH Past Medical History: No History, Except For Hx Hypertension: Yes Hx Pacemaker: No Hx COPD: Yes Hx Diabetes: Yes Hx Cancer: No Hx Dialysis: No Hx Neurological Problems: Yes - anoxic brain damage Hx Seizures: Yes Hx Epilepsy: Yes Hx Tremors: Yes Hx Aphasia: Yes Hx Dysphasia: Yes Hx Weakness: Yes Review of Systems All Other Systems: negative except mentioned in HPI Physical Exam Vital Signs Date Time Temp Pulse Resp B/P Pulse Ox O2 Delivery O2 Flow Rate FiO2 05/13/16 19:23 99.1 120 22 106/71 98 Nasal Cannula 3.0 General Appearance: well appearing, no apparent distress, alert, GCS 15 Head: normocephalic, atraumatic ENT: hearing grossly normal, normal voice Neck: full range of motion, supple Respiratory: no respiratory distress, speaking full sentences Cardiovascular #1: normal peripheral pulses, regular rate, rhythm, no edema Gastrointestinal: non tender Musculoskeletal: no calf tenderness Neurologic: normal gait, motor weakness, oriented Psychiatric: mood/affect normal Skin: other - erythema to gtube site. Medical Decision Making Diagnostic Impression: Primary Impression: Malfunction of gastrostomy tube ER Course Patient presented for G-tube replacement. Gastrostomy tube was replaced with sterile technique. Post procedure x-ray showed adequate gastrostomy tube placement. Patient tolerated well without complications. The patient was discharged back to [facility]. Patient was return for persistent vomiting, other concerns. Last Vital Signs Date Time Temp Pulse Resp B/P Pulse Ox O2 Delivery O2 Flow Rate FiO2 05/13/16 20:55 98.9 115 34 130/74 99 Nasal Cannula 3.0 Status: unchanged Disposition: [facility] Condition: Stable Referrals: BISHOP PENA (PCP) Patient Instructions: Gastrostomy Tube Home Guide, Adult Pool [place] May 13, 2016 23:27
--- NOTE | 2016-05-15 09:34 | Diagnostic Imaging Report ---
Indication: Gastrostomy tube placement Technique: Supine abdomen following injection of water-soluble contrast via the gastrostomy tube. Comparison: 04/12/16 Findings: There is opacification of the stomach confirming intraluminal positioning of the gastrostomy tube. There is no obvious extravasation. Hiatal hernia and gastroesophageal reflux are seen. There is a right femoral central line partially visualized. Impression: Gastrostomy tube within the stomach without obvious extravasation. Other findings as above.
== END 2016-05-13 20:58 ==
LOC: EDBD 19:42 → EMR 20:43
DX: K94.23 Gastrostomy malfunction (principal); Z66 Do not resuscitate; I10 Essential (primary) hypertension; J44.9 Chronic obstructive pulmonary disease, unspecified; E11.9 Type 2 diabetes mellitus without complications; G40.909 Epilepsy, unspecified, not intractable, without status epilepticus; G93.1 Anoxic brain damage, not elsewhere classified
CPT/HCPCS: 43760; 74000; 99284; Q9963

== ENCOUNTER 2016-05-20 12:35 | Inpatient (IN) | payer OTHER ==
[2016-05-20] VITALS (7 sets, daily range): BP systolic 90–167; BP diastolic 24–139
[~2016-05-20] VITALS: Ht 162.6 cm; Wt 63.0 kg
[2016-05-20] MEDS ORDERED: Piperacillin/Tazobactam 4.5 GM in NS 110 ML IV ONE (12:45)
[2016-05-20] MEDS ORDERED: Vancomycin 1 GM in NS 275 ML IV ONE (12:45)
[2016-05-20] MEDS ORDERED: Azithromycin 500 MG in NS 275 ML IV ONE (12:45)
[2016-05-20] MEDS ORDERED: Ipratropium 0.02% Inh Soln 2.5ml UD HHN ONE (12:45)
[2016-05-20] MEDS ORDERED: Albuterol ud Inhalation HHN ONE (12:45)
[2016-05-20] MEDS ORDERED: LORazepam Inj 2mg/ml 1ml IV PRN (13:15)
[2016-05-20] MEDS ORDERED: Morphine Sulfate 4mg/ml Inj IVP PRN (13:15)
[2016-05-20] MEDS ORDERED: Miralax 17gm pkt ORAL PRN (13:15)
[2016-05-20] MEDS ORDERED: DuoNeb 0.5-3(2.5)mg/3ml neb HHN PRN (13:15)
[2016-05-20 13:34] LABS: TROPONIN I < 0.30 ng/mL (<=0.30)
[2016-05-20 13:35] LABS: MEAN CORPUSCULAR HGB CONC 31.7 G/DL (32.0-36.0); MEAN CORPUSCULAR VOLUME 98 FL (80-99); MEAN PLATELET VOLUME 8.3 FL (6.5-10.1); PLATELET COUNT 874 K/UL (150-450); RED BLOOD COUNT 4.52 M/UL (4.20-5.40); RED CELL DISTRIBUTION WIDTH 15.7 % (11.6-14.8)
[2016-05-20 13:36] LABS: APPEARANCE,URINE SLIGHTLY CLOUDY; KETONES,URINE 1+ (NEGATIVE); LEUKOCYTE ESTERASE ,URINE 2+ (NEGATIVE); NITRITE,URINE NEGATIVE (NEGATIVE); PH,URINE 6 (4.5-8.0); PROTEIN,URINE 4+ (NEGATIVE); UROBILINOGEN,URINE NORMAL MG/DL (0.0-1.0)
[2016-05-20 13:37] LABS: ALANINE AMINOTRANSFERASE 25 U/L (3-33); ALBUMIN/GLOBULIN RATIO 0.6 (1.0-2.7); ANION GAP 33 (5-15); ASPARTATE AMINO TRANSFERASE 53 U/L (5-40); CALCIUM 10.1 mg/dL (8.6-10.2); CARBON DIOXIDE 12 mEQ/L (20-30); CHLORIDE 100 mEQ/L (98-107); CREATININE 1.8 mg/dL (0.5-0.9); GLOMERULAR FILTRATION RATE 28.6 mL/min (>60); HEMOLYSIS 0; SODIUM 145 mEQ/L (135-145); TOTAL PROTEIN 8.7 g/dL (6.6-8.7); WHITE BLOOD COUNT 23.4 K/UL (4.8-10.8)
[2016-05-20 13:39] LABS: REFLEX LACTIC ACID YES OR NO YES
[2016-05-20 13:45] LABS: BACTERIA,URINE FEW /HPF; SQUAMOUS EPITHELIAL CELL,UR FEW /LPF (NONE/OCC); WBC,URINE 15-20 /HPF (0 - 2); YEAST,URINE FEW /HPF
[2016-05-20] MEDS ORDERED: Depakote 125mg Sprinkles GT SCH (14:00)
[2016-05-20 14:06] LABS: ANISOCYTOSIS 1+; BAND NEUTROPHILS % (MANUAL) 19 % (0-8); BASOPHILS % (MANUAL) 0 % (0-2); EOSINOPHILS % (MANUAL) 0 % (0-3); LYMPHOCYTES % (MANUAL) 14 % (20-45); NEUTROPHILS % (MANUAL) 50 % (45-75); PLATELET ESTIMATE INCREASED; TOTAL CELLS COUNTED 100
[2016-05-20 14:08] LABS: MACROCYTES 1+
--- NOTE | 2016-05-20 14:15 | Emergency Room Report ---
History of Present Illness General Chief Complaint: Dyspnea/Respdistress Source: EMS Present Illness HPI Patient presents with severe resp distress and tachycardia - warm to touch. Patient = DNR/DNI. Patient unable to give hx. Prior strokes, IN, COPD, seizures, quadriplegia. Allergies: Coded Allergies: NO KNOWN DRUG ALLERGIES (Unverified Allergy, Unknown, 06/01/14) Patient History Past Medical History: see triage record, old chart reviewed Past Surgical History: other - g tube Social History Narrative DNR Reviewed Nursing Documentation: PMH: Agreed, PSxH: Agreed Nursing Documentation-PMH Hx Cardiac Problems: Yes Hx Hypertension: Yes Hx Pacemaker: No Hx COPD: Yes Hx Diabetes: Yes Hx Cancer: No Hx Gastrointestinal Problems: Yes Hx Dialysis: No Hx Neurological Problems: Yes - anoxic brain damage Hx Epilepsy: Yes Hx Tremors: Yes Hx Aphasia: Yes Hx Dysphasia: Yes Hx Weakness: Yes Review of Systems All Other Systems: limited Physical Exam Vital Signs Date Time Temp Pulse Resp B/P Pulse Ox O2 Delivery O2 Flow Rate FiO2 05/20/16 12:31 176 36 116/80 95 Non-Rebreather 15.0 05/20/16 12:47 50 Sp02 EP Interpretation: reviewed, abnormal - extremely low as interpreted by me based on FIO2 General Appearance: severe distress Eyes: bilateral eye PERRL, bilateral eye normal inspection ENT: dry mucus membranes Neck: supple Respiratory: respiratory distress, crackles, rales, rhonchi Cardiovascular #1: tachycardia Cardiovascular #2: 2+ femoral (R), 2+ femoral (L) Gastrointestinal: non-distended, no guarding, abnormal bowel sounds - abscent BS , other - G tube Musculoskeletal: other - contractures Neurologic: responsive, sensory deficit - not respond to pain, other - eyes open and blinking Psychiatric: other - stupor Reflexes: 0 knee (R), 0 knee (L) Skin: mottled, other - hot Procedures Critical Care Time Critical Care Time Total Critical Care Time: 45 min bedside evaluation and treatment excludes procedures (EKG, CVP). Reason for critical care: severe sepsis, respiratory distress, tachycardia, volume depletion, focal seizure Possible complications: hypotension, hypertension, IN, shock, arrhythmias, metabolic acidosis, end organ damage, respiratory failure. Interventions: CVP, BIPAP, fluid resuscitation, antibiotics Course: Patient presents in extremis with respiratory distress and tachycardia. Apparent pneumonia = source. Supported with BIPAP. Unable to find peripheral IV so CVP started. Aggressive fluid resuscitation and antibiotics started. Improved mentation but still ebullic. VS somewhat improved. Tylenol given for fever. Patient with focal seizure. Ativan given with improvement and extinguishing of seizure activity. Consultations: nursing staff, EMS, RT Performed by: Dr. Veliz Tolerated well condition = critical Central Line Central Line : Consent: Emergent Central Line Lumen: triple Maximal Sterile Barrier Tech: yes cap, yes mask, yes sterile gown, yes sterile gloves, yes large sterile sheet, yes hand hygiene, yes chlorhexidine prep Central Line Postion: femoral (L) Complications: none Central Line Post Position: sutured, good blood return Attempts: Other - 2 Patient Tolerated: Well Complications: None Progress Unable to find vein on R. L side used. Medical Decision Making Diagnostic Impression: Primary Impression: Severe sepsis Additional Impressions: Pneumonia Qualified Codes: J18.9 - Pneumonia, unspecified organism Volume depletion Focal seizure UTI (urinary tract infection) Qualified Codes: N30.00 - Acute cystitis without hematuria ER Course Patient presents with respiratory distress and fever. DDx: pneumonia, sepsis, UTI, AMI amongst others. She is in distress and emergent and aggressive measures will be initiated within the limits of her advanced directives. Labs, EKG, CXR. BIPAP initiated. Staff unable to start IV - CVP indicted for IV access and antibiotic administration. See critical care note. Improved on BIPAP. CVP begun as no peripheral IV sites. Lactate very high with improvement with hydration. Patient with focal seizure R UE. Ativan given. No more seizure activity. Admit Dr. Lopez (also discussed with Dr. Ansari). Laboratory Tests Test 05/20/16 12:50 05/20/16 15:55 05/20/16 16:10 White Blood Count 23.4 K/UL (4.8-10.8) *H Red Blood Count 4.52 M/UL (4.20-5.40) Hemoglobin 14.0 G/DL (12.0-16.0) Hematocrit 44.1 % (37.0-47.0) Mean Corpuscular Volume 98 FL (80-99) Mean Corpuscular Hemoglobin 31.0 PG (27.0-31.0) Mean Corpuscular Hemoglobin Concent 31.7 G/DL (32.0-36.0) L Red Cell Distribution Width 15.7 % (11.6-14.8) H Platelet Count 874 K/UL (150-450) H Mean Platelet Volume 8.3 FL (6.5-10.1) Neutrophils (%) (Auto) % (45.0-75.0) Lymphocytes (%) (Auto) % (20.0-45.0) Monocytes (%) (Auto) % (1.0-10.0) Eosinophils (%) (Auto) % (0.0-3.0) Basophils (%) (Auto) % (0.0-2.0) Differential Total Cells Counted 100 Neutrophils % (Manual) 50 % (45-75) Lymphocytes % (Manual) 14 % (20-45) L Monocytes % (Manual) 17 % (1-10) H Eosinophils % (Manual) 0 % (0-3) Basophils % (Manual) 0 % (0-2) Band Neutrophils 19 % (0-8) H Platelet Estimate Increased H Platelet Morphology Giant Platelets Rare Anisocytosis 1+ Macrocytosis 1+ Urine Color Pale yellow Urine Appearance Slightly cloudy Urine pH 6 (4.5-8.0) Urine Specific [place] 1.015 (1.005-1.035) Urine Protein 4+ (NEGATIVE) H Urine Glucose (UA) Negative (NEGATIVE) Urine Ketones 1+ (NEGATIVE) H Urine Occult Blood 2+ (NEGATIVE) H Urine Nitrite Negative (NEGATIVE) Urine Bilirubin Negative (NEGATIVE) Urine Urobilinogen Normal MG/DL (0.0-1.0) Urine Leukocyte Esterase 2+ (NEGATIVE) H Urine RBC 5-10 /HPF (0 - 2) H Urine WBC 15-20 /HPF (0 - 2) H Urine Squamous Epithelial Cells Few /LPF (NONE/OCC) Urine Bacteria Few /HPF (NONE) Urine Yeast Few /HPF (NONE) H Sodium Level 145 mEQ/L (135-145) Potassium Level 5.0 mEQ/L (3.4-4.9) H Chloride Level 100 mEQ/L (98-107) Carbon Dioxide Level 12 mEQ/L (20-30) L Anion Gap 33 (5-15) H Blood Urea Nitrogen 54 mg/dL (7-23) H Creatinine 1.8 mg/dL (0.5-0.9) H Estimate Glomerular Filtration Rate 28.6 mL/min (>60) Glucose Level 447 mg/dL (74-106) H Lactic Acid Level 11.00 mmol/L (0.66-2.22) H 7.40 mmol/L (0.66-2.22) H Calcium Level 10.1 mg/dL (8.6-10.2) Total Bilirubin 0.5 mg/dL (0.0-1.2) Aspartate Amino Transferase (AST) 53 U/L (5-40) H Alanine Aminotransferase (ALT) 25 U/L (3-33) Alkaline Phosphatase 76 U/L (35-104) Total Creatine Kinase 44 U/L (26-140) Troponin I < 0.30 ng/mL (<=0.30) Pro-B-Type Natriuretic Peptide 6296 pg/mL (0-125) H Total Protein 8.7 g/dL (6.6-8.7) Albumin 3.3 g/dL (3.5-5.2) L Globulin 5.4 g/dL Albumin/Globulin Ratio 0.6 (1.0-2.7) L Arterial Blood pH 7.310 (7.350-7.450) Arterial Blood Partial Pressure CO2 27.6 mmHg (35.0-45.0) L Arterial Blood Partial Pressure O2 147.2 mmHg (75.0-100.0) H Arterial Blood HCO3 13.7 mmol/L (22.0-26.0) L Arterial Blood Oxygen Saturation 98.3 % (92.0-98.0) H Arterial Blood Base Excess -11.0 Reji Test Positive Prothrombin Time 16.1 SEC (9.30-11.50) H Prothrombin Time INR 1.6 (0.9-1.1) H PTT 27 SEC (23-33) Microbiology Date/Time Source Procedure Growth Status 05/20/16 16:13 Nasal Nares Influenza Types A,B Antigen (RENA) - Final Complete EKG Diagnostic Results Rate: tachycardiac ST Segments: no acute changes Rhythm Strip Diag. Results EP Interpretation: yes Rhythm: no PVC's, no ectopy, other - SVT Chest X-Ray Diagnostic Results EP Interpretation: Yes Findings: no effusion, no pneumothorax, other - bilateral infiltrates Number of Views: 1 Last Vital Signs Date Time Temp Pulse Resp B/P Pulse Ox O2 Delivery O2 Flow Rate FiO2 05/20/16 12:56 175 55 99 Bi-pap 05/20/16 12:47 50 05/20/16 12:31 116/80 15.0 Status: improved Disposition: ADMITTED INPATIENT Condition: Critical Valeriano Veliz M.D. May 20, 2016 14:15
[2016-05-20] MEDS ORDERED: Zosyn 4.5gm inj ONE (14:17)
[2016-05-20] MEDS ORDERED: Acetaminophen 650 MG SUPP RECTAL ONE ×2 (14:26→14:30)
[2016-05-20] MEDS ORDERED: NS 1000ml 1,900 ML IVLG ONE (14:30)
[2016-05-20] MEDS ORDERED: LORazepam Inj 2mg/ml 1ml IV ONE (15:15)
[2016-05-20] MEDS ORDERED: Azithromycin Inj IV ONE (15:39)
[2016-05-20] MEDS ORDERED: FERROUS SULFAT325 MG GT (15:57)
[2016-05-20] MEDS ORDERED: NOVOLOG100 UNIT/3 SUBQ (15:57)
[2016-05-20] MEDS ORDERED: VALPROIC ACID250 MG PO (15:57)
[2016-05-20] MEDS ORDERED: MULTI VITAMIN1 EACH GT (15:57)
[2016-05-20] MEDS ORDERED: VALPROIC A250 MG/5 M GT (15:57)
[2016-05-20] MEDS ORDERED: ZOFRAN4 M1 GT (15:58)
[2016-05-20 16:01] LABS: ABG PCO2 27.6 mmHg (35.0-45.0)
[2016-05-20 16:02] LABS: ABG ALLEN TEST POSITIVE
[2016-05-20 16:47] LABS: INR 1.6 (0.9-1.1); PROTHROMBIN TIME 16.1 SEC (9.30-11.50)
[2016-05-20] MEDS ORDERED: Vancomycin 1gm inj IVPB ONE (16:54)
[2016-05-20] MEDS ORDERED: Cefepime HCl 1 GM in D5W 55 ML IVPB SCH (21:00)
[2016-05-20] MEDS: levETIRAcetam 500mg/5ml Liquid ORAL SCH (21:16)
[2016-05-20] MEDS: NovoLOG Insulin Flexpen SUBQ SCH (21:20)
[2016-05-20] MEDS: Heparin 5000 units/ml inj SUBQ SCH (21:21)
[2016-05-20] MEDS: Valproic Acid 250mg/5ml Liquid GT SCH (21:41)
[2016-05-20 23:03] LABS: REFLEX LACTIC ACID YES OR NO YES
--- NOTE | 2016-05-20 23:49 | History and Physical ---
History of Present Illness General Date patient seen: May 20, 2016 Reason for Hospitalization: Dyspnea/Respdistress Present Illness HPI 60 yo female with pmhx prior CVA, SC, COPD, seizures, quadriplegia presenting to [facility] ER in respiratory distress and tachycardic. Patient has been stabilized with aggressive IV fluid hydration and IV antibiotics to treat a suspected bilateral pnuemonia, the initial CXR revealed bilateral infiltrates. The patient is in moderate respiratory distress, has been given BiPAP with positive airway pressure and pressure support and appears to be much improved, oxygenation within acceptable physiologic limits and heart rate bhatt also decreased. Patient is disoriented and unable to provide any history. Allergies: Coded Allergies: NO KNOWN DRUG ALLERGIES (Unverified Allergy, Unknown, 06/01/14) Medication History Scheduled Acetaminophen (Acetaminophen), 650 MG PO Q4HR, (Reported) Carvedilol (Coreg), 25 MG GT EVERY 12 HOURS, (Reported) Collagenase Clostridium Hist. (Santyl), 1 APPLIC TP DAILY, (Reported) Divalproex Sodium (Depakote Sprinkle), 500 MG GT Q8HR, (Reported) Ferrous Sulfate* (Ferrous Sulfate*), 325 MG GT DAILY, (Reported) Heparin Sod (Porcine) (Heparin Sodium*), 5,000 UNITS SUBQ EVERY 12 HOURS, ( Reported) Insulin Aspart (Novolog), 100 UNIT SQ Q6HR, (Reported) Insulin Aspart* (Novolog*), 0 SUBQ sliding scale, (Reported) Levetiracetam (Keppra), 1,500 MG ORAL Q12HR, (Reported) Meropenem (Meropenem), 1 GM IV EVERY 12 HOURS Multivitamin (Multi Vitamin Daily), 1 TAB GT DAILY, (Reported) Valproate Sodium (Valproic Acid), 500 MG GT EVERY 8 HOURS, (Reported) Vancomycin Hcl/D5w (Vancomycin-D5w 1 G/250 Ml), 1 GM IVPB Q24H Zinc Sulfate (Zinc Sulfate), 220 MG GT DAILY, (Reported) Scheduled PRN Clonidine Hcl* (Catapres*), 0.1 MG GT EVERY 6 HOURS PRN for For High Blood Pressure, (Reported) Lorazepam* (Ativan*), 2 MG GT Q6HR PRN for seizure, (Reported) Ondansetron (Zofran), 4 MG GT Q6H PRN for Nausea & Vomiting, (Reported) Ondansetron* (Zofran*), 4 MG IV Q6H PRN for Nausea & Vomiting, (Reported) Polyethylene Glycol 3350* (Miralax*), 17 GM ORAL HS PRN for Constipation, ( Reported) Zolpidem Tartrate* (Ambien*), 5 MG ORAL BEDTIME PRN for Insomnia, (Reported) Miscellaneous Medications Unable to Obtain Medications (Unable To Obtain Meds), (Reported) Valproic Acid (Valproic Acid), 250 MG PO, (Reported) Patient History Healthcare decision maker Resuscitation status Do Not Resuscitate Advanced Directive on File Past Medical/Surgical History Past Medical/Surgical History: (1) Tremors of nervous system (2) Concussion syndrome (3) Pyelonephritis (4) Asthma exacerbation (5) Hyponatremia (6) Occasional tremors (7) r/o seizures (8) Postural tremor (9) Acute renal failure (ARF) (10) Clostridium difficile colitis (11) Weakness (12) Focal (motor) epilepsy (13) Respiratory distress syndrome (14) EVANGELINA (acute kidney injury) (15) Hypoxia (16) Dehydration (17) Dehydration (18) Seizure (19) Respiratory failure (20) Sepsis (21) Status epilepticus due to refractory complex partial seizures (22) Fever (23) Paraparesis (24) History of heart attack (25) Epileptic seizure, generalized (26) H/O: CVA (cerebrovascular accident) (27) Altered mental status (28) Non-healing ulcer of left foot (29) Bacteremia (30) chronic seizure disorder, exacerbation (31) HTN (hypertension) (32) Anoxic encephalopathy (33) Right hip pain (34) Septic shock (35) Sacral decubitus ulcer (36) Dysphagia (37) Pancytopenia (38) Decubitus ulcer of sacral area (39) Hypoalbuminemia (40) Acute encephalopathy (41) Anemia (42) Cerebral vascular disease (43) G tube feedings (44) Dyspnea (45) UTI (urinary tract infection) (46) Pneumonia (47) Severe sepsis (48) Diabetes mellitus out of control (49) Malfunction of gastrostomy tube (50) Acute respiratory failure (51) Seizure disorder (52) Aspiration pneumonia Review of Systems Constitutional: Reports: fever, malaise, sweats, weakness Respiratory: Reports: DONAHUE, cough, shortness of breath, sputum, stridor, wheezing Physical Exam General Appearance: moderate distress Lines, tubes and drains: peripheral HEENT: normocephalic, atraumatic, anicteric, PERRL Neck: non-tender, normal alignment, supple Respiratory/Chest: respiratory distress, decreased breath sounds, accessory muscle use, rhonchi - bilaterally, expiratory wheezing, inspiratory wheezing, pleural rub Breasts: no masses Cardiovascular/Chest: tachycardia Abdomen: normal bowel sounds, non tender, soft, no organomegaly, no mass Genitourinary/Rectal: normal genital exam, normal rectal exam Extremities: normal range of motion, non-tender, normal inspection Skin Exam: normal pigmentation, palled Neurologic: responsive, abnormal CN, motor weakness, disoriented, aphasia Last 24 Hour Vital Signs Date Time Temp Pulse Resp B/P Pulse Ox O2 Delivery O2 Flow Rate FiO2 05/20/16 23:02 121 24 100 Facial 50 05/20/16 22:00 50 05/20/16 21:04 125 26 100 Facial 50 05/20/16 20:00 98.1 123 24 127/80 100 Bi-pap 15.0 50 05/20/16 20:00 122 05/20/16 19:00 122 26 100 Facial 50 05/20/16 18:00 50 05/20/16 17:54 98.2 129 30 90/52 97 Bi-pap 50 05/20/16 17:13 130 34 102/69 100 Bi-pap 50 05/20/16 16:45 127 30 100 Facial 50 05/20/16 15:16 144 41 114/55 100 Bi-pap 50 05/20/16 15:12 98.7 05/20/16 15:01 148 45 98 Facial 50 05/20/16 14:30 103.5 155 36 132/100 98 Bi-pap 15.0 50 05/20/16 13:30 171 49 146/116 98 Bi-pap 50 05/20/16 12:56 175 55 99 Bi-pap 05/20/16 12:47 177 55 98 Facial 50 05/20/16 12:45 15.0 50 05/20/16 12:45 161 55 98 Bi-pap 05/20/16 12:45 175 44 167/139 98 Bi-pap 15.0 50 05/20/16 12:40 178 40 Non-Rebreather 15.0 05/20/16 12:40 178 40 128/24 95 Non-Rebreather 15.0 05/20/16 12:31 176 36 116/80 95 Non-Rebreather 15.0 Laboratory Tests Test 05/20/16 12:50 05/20/16 15:55 05/20/16 16:10 05/20/16 22:00 White Blood Count 23.4 K/UL (4.8-10.8) *H Red Blood Count 4.52 M/UL (4.20-5.40) Hemoglobin 14.0 G/DL (12.0-16.0) Hematocrit 44.1 % (37.0-47.0) Mean Corpuscular Volume 98 FL (80-99) Mean Corpuscular Hemoglobin 31.0 PG (27.0-31.0) Mean Corpuscular Hemoglobin Concent 31.7 G/DL (32.0-36.0) L Red Cell Distribution Width 15.7 % (11.6-14.8) H Platelet Count 874 K/UL (150-450) H Mean Platelet Volume 8.3 FL (6.5-10.1) Neutrophils (%) (Auto) % (45.0-75.0) Lymphocytes (%) (Auto) % (20.0-45.0) Monocytes (%) (Auto) % (1.0-10.0) Eosinophils (%) (Auto) % (0.0-3.0) Basophils (%) (Auto) % (0.0-2.0) Differential Total Cells Counted 100 Neutrophils % (Manual) 50 % (45-75) Lymphocytes % (Manual) 14 % (20-45) L Monocytes % (Manual) 17 % (1-10) H Eosinophils % (Manual) 0 % (0-3) Basophils % (Manual) 0 % (0-2) Band Neutrophils 19 % (0-8) H Platelet Estimate Increased H Platelet Morphology Giant Platelets Rare Anisocytosis 1+ Macrocytosis 1+ Urine Color Pale yellow Urine Appearance Slightly cloudy Urine pH 6 (4.5-8.0) Urine Specific [place] 1.015 (1.005-1.035) Urine Protein 4+ (NEGATIVE) H Urine Glucose (UA) Negative (NEGATIVE) Urine Ketones 1+ (NEGATIVE) H Urine Occult Blood 2+ (NEGATIVE) H Urine Nitrite Negative (NEGATIVE) Urine Bilirubin Negative (NEGATIVE) Urine Urobilinogen Normal MG/DL (0.0-1.0) Urine Leukocyte Esterase 2+ (NEGATIVE) H Urine RBC 5-10 /HPF (0 - 2) H Urine WBC 15-20 /HPF (0 - 2) H Urine Squamous Epithelial Cells Few /LPF (NONE/OCC) Urine Bacteria Few /HPF (NONE) Urine Yeast Few /HPF (NONE) H Sodium Level 145 mEQ/L (135-145) Potassium Level 5.0 mEQ/L (3.4-4.9) H Chloride Level 100 mEQ/L (98-107) Carbon Dioxide Level 12 mEQ/L (20-30) L Anion Gap 33 (5-15) H Blood Urea Nitrogen 54 mg/dL (7-23) H Creatinine 1.8 mg/dL (0.5-0.9) H Estimat Glomerular Filtration Rate 28.6 mL/min (>60) Glucose Level 447 mg/dL (74-106) H Lactic Acid Level 11.00 mmol/L (0.66-2.22) H 7.40 mmol/L (0.66-2.22) H 4.70 mmol/L (0.66-2.22) H Calcium Level 10.1 mg/dL (8.6-10.2) Total Bilirubin 0.5 mg/dL (0.0-1.2) Aspartate Amino Transf (AST/SGOT) 53 U/L (5-40) H Alanine Aminotransferase (ALT/SGPT) 25 U/L (3-33) Alkaline Phosphatase 76 U/L (35-104) Total Creatine Kinase 44 U/L (26-140) Troponin I < 0.30 ng/mL (<=0.30) Pro-B-Type Natriuretic Peptide 6296 pg/mL (0-125) H Total Protein 8.7 g/dL (6.6-8.7) Albumin 3.3 g/dL (3.5-5.2) L Globulin 5.4 g/dL Albumin/Globulin Ratio 0.6 (1.0-2.7) L Arterial Blood pH 7.310 (7.350-7.450) Arterial Blood Partial Pressure CO2 27.6 mmHg (35.0-45.0) L Arterial Blood Partial Pressure O2 147.2 mmHg (75.0-100.0) H Arterial Blood HCO3 13.7 mmol/L (22.0-26.0) L Arterial Blood Oxygen Saturation 98.3 % (92.0-98.0) H Arterial Blood Base Excess -11.0 Reji Test Positive Prothrombin Time 16.1 SEC (9.30-11.50) H Prothromb Time International Ratio 1.6 (0.9-1.1) H Activated Partial Thromboplast Time 27 SEC (23-33) Microbiology Date/Time Source Procedure Growth Status 05/20/16 16:13 Nasal Nares Influenza Types A,B Antigen (RENA) - Final Complete Height (Feet): 5 Height (Inches): 4.00 Weight (Pounds): 139 Medications Current Medications Medications (Trade) Dose Ordered Sig/Kimo Route PRN Reason Start Time Stop Time Status Last Admin Dose Admin Acetaminophen (Tylenol) 650 mg Q4H PRN ORAL FEVER 05/20/16 13:15 06/19/16 13:14 Albuterol/ Ipratropium 3 ml 3 ml EVERY 4 HOURS PRN HHN Shortness of Breath 05/20/16 13:15 05/25/16 13:14 Cefepime HCl 1 gm/ Dextrose 55 ml @ 110 mls/hr Q24H IVPB 05/20/16 21:00 05/27/16 20:59 05/20/16 21:16 Dextrose (Dextrose 50%) STAT PRN IV Hypoglycemia 05/20/16 13:15 06/19/16 13:14 Heparin Sodium (Porcine) (Heparin 5000 units/ml) 5,000 units EVERY 12 HOURS SUBQ 05/20/16 21:00 06/19/16 20:59 05/20/16 21:21 Insulin Aspart (NovoLOG) EVERY 6 HOURS SUBQ 05/20/16 21:00 06/19/16 20:59 05/20/16 21:20 Levetiracetam 1500 mg 1,500 mg Q12HR ORAL 05/20/16 21:00 06/19/16 20:59 05/20/16 21:16 Lorazepam (Ativan 2mg/ml 1ml) 2 mg EVERY 2 HOURS PRN IV For Anxiety 05/20/16 13:15 05/27/16 13:14 Morphine Sulfate (Morphine Sulfate) 4 mg EVERY 4 HOURS PRN IVP Severe Pain (Pain Scale 7-10) 05/20/16 13:15 05/27/16 13:14 Ondansetron HCl (Zofran) 4 mg Q6H PRN IVP Nausea & Vomiting 05/20/16 13:15 06/19/16 13:14 Polyethylene Glycol (Miralax) 17 gm DAILYPRN PRN ORAL Constipation 05/20/16 13:15 06/19/16 13:14 Sodium Chloride (0.45% NS 1000ml) 1,000 ml @ 50 mls/hr Q20H IV 05/20/16 17:00 06/19/16 16:59 05/20/16 17:00 Valproic Acid (Depakene) 500 mg Q8HR GT 05/20/16 18:56 06/19/16 13:59 05/20/16 21:41 Vancomycin HCl (Vanco rx to dose) 1 ea DAILY PRN MISC . 05/20/16 19:30 06/19/16 19:29 Vancomycin HCl/ Dextrose (Vancomycin/D5W) 110 ml @ 110 mls/hr Q24H IV 05/21/16 17:00 05/26/16 16:59 Assessment/Plan Status: stable, progressing Assessment/Plan Assessment Acute Dyspnea Bilateral Pneumonia Possible aspiration event Quadriplegia Severe debility Hx CVA Plan Empiric Antbx Agressive rescucitation efforts with IVF BiPAP positive airway pressure and pressure support Titrate Fi02 up maintain O2 sat above 92 % Aspiration precautions Breathing Tx as needed for SOB BISHOP PENA May 20, 2016 23:49
[2016-05-21] VITALS: BP 120/77
[2016-05-21] MEDS: NovoLOG Insulin Flexpen SUBQ SCH ×4 (01:54→17:49)
[2016-05-21 04:00] VITALS: BP 109/70
[2016-05-21] MEDS: Valproic Acid 250mg/5ml Liquid GT SCH ×3 (05:41→22:16)
[2016-05-21 06:08] LABS: LYMPHOCYTES % (AUTO) 12.2 % (20.0-45.0); MEAN CORPUSCULAR HEMOGLOBIN 30.9 PG (27.0-31.0); MEAN CORPUSCULAR HGB CONC 31.9 G/DL (32.0-36.0); MEAN CORPUSCULAR VOLUME 97 FL (80-99); NEUTROPHILS % (AUTO) 77.8 % (45.0-75.0); PLATELET COUNT 248 K/UL (150-450); RED BLOOD COUNT 3.14 M/UL (4.20-5.40); RED CELL DISTRIBUTION WIDTH 15.6 % (11.6-14.8); WHITE BLOOD COUNT 11.5 K/UL (4.8-10.8)
[2016-05-21 07:23] LABS: ANION GAP 14 (5-15); CALCIUM 8.2 mg/dL (8.6-10.2); CARBON DIOXIDE 23 mEQ/L (20-30); CHLORIDE 114 mEQ/L (98-107); CREATININE 0.8 mg/dL (0.5-0.9); GLOMERULAR FILTRATION RATE > 60 mL/min (>60); HEMOLYSIS 4; PHOSPHORUS 3.9 mg/dL (2.5-4.8); POTASSIUM 3.4 mEQ/L (3.4-4.9); SODIUM 151 mEQ/L (135-145)
[2016-05-21 08:00] VITALS: BP 94/68
[2016-05-21] MEDS: levETIRAcetam 500mg/5ml Liquid ORAL SCH ×2 (09:24→20:59)
[2016-05-21] MEDS: Heparin 5000 units/ml inj SUBQ SCH ×2 (09:30→20:59)
[2016-05-21] MEDS ORDERED: NS 275ml ONE (10:01)
[2016-05-21] MEDS ORDERED: 1/2 NS 1000ml IV ONE (10:01)
[2016-05-21] MEDS ORDERED: Tubing IV Secondary IV ONE (10:01)
--- NOTE | 2016-05-21 10:12 | Diagnostic Imaging Report ---
Indication: COUGH Technique: XRAY CHEST 1 V Comparison:04/27/2016 Findings: Linear density is noted in the bases bilaterally. The heart is normal in size. The bones are osteopenic. No pleural fluid. Poor inspiration. Impression: Bibasilar atelectasis. Osteopenia. Otherwise negative.
[2016-05-21] MEDS ORDERED: Digoxin 0.5mg/2ml Inj IVP ONE (10:45)
[2016-05-21] MEDS ORDERED: KCl 10% 20 mEq/15ml liquid NG ONE (11:00)
--- NOTE | 2016-05-21 11:48 | Infectious Diseases Prog Note ---
Assessment/Plan Assessment/Plan ID consult dictated # [id number] Subjective Allergies: Coded Allergies: NO KNOWN DRUG ALLERGIES (Unverified Allergy, Unknown, 06/01/14) Objective Vital Signs Last 24 Hour Vital Signs Date Time Temp Pulse Resp B/P Pulse Ox O2 Delivery O2 Flow Rate FiO2 05/21/16 11:22 131 21 95 Facial 35 05/21/16 10:45 131 05/21/16 09:10 134 24 96 Facial 35 05/21/16 08:00 35 05/21/16 08:00 132 05/21/16 08:00 99.0 135 24 94/68 98 Bi-pap 35 05/21/16 07:18 136 26 96 Facial 35 05/21/16 05:06 133 26 98 Facial 35 05/21/16 04:00 98.6 129 22 109/70 96 Mechanical Ventilator 35 05/21/16 04:00 50 05/21/16 04:00 131 05/21/16 03:01 127 21 99 Facial 35 05/21/16 00:54 125 21 100 Facial 50 05/21/16 00:00 121 05/21/16 00:00 98.2 119 19 120/77 100 Bi-pap 50 05/20/16 23:02 121 24 100 Facial 50 05/20/16 22:00 50 05/20/16 21:04 125 26 100 Facial 50 05/20/16 20:00 98.1 123 24 127/80 100 Bi-pap 15.0 50 05/20/16 20:00 122 05/20/16 19:00 122 26 100 Facial 50 05/20/16 18:00 50 05/20/16 17:54 98.2 129 30 90/52 97 Bi-pap 50 05/20/16 17:13 130 34 102/69 100 Bi-pap 50 05/20/16 16:45 127 30 100 Facial 50 05/20/16 15:16 144 41 114/55 100 Bi-pap 50 05/20/16 15:12 98.7 05/20/16 15:01 148 45 98 Facial 50 05/20/16 14:30 103.5 155 36 132/100 98 Bi-pap 15.0 50 05/20/16 13:30 171 49 146/116 98 Bi-pap 50 05/20/16 12:56 175 55 99 Bi-pap 05/20/16 12:47 177 55 98 Facial 50 3/11/17 12:45 15.0 50 05/20/16 12:45 161 55 98 Bi-pap 05/20/16 12:45 175 44 167/139 98 Bi-pap 15.0 50 05/20/16 12:40 178 40 Non-Rebreather 15.0 05/20/16 12:40 178 40 128/24 95 Non-Rebreather 15.0 05/20/16 12:31 176 36 116/80 95 Non-Rebreather 15.0 Height (Feet): 5 Height (Inches): 4.00 Weight (Pounds): 139 Microbiology Date/Time Source Procedure Growth Status 05/20/16 16:13 Nasal Nares Influenza Types A,B Antigen (RENA) - Final Complete 05/20/16 12:50 Urine,Clean Catch Urine Culture - Preliminary Resulted Laboratory Tests Test 05/20/16 12:50 05/20/16 15:55 05/20/16 16:10 05/20/16 22:00 White Blood Count 23.4 K/UL (4.8-10.8) *H Red Blood Count 4.52 M/UL (4.20-5.40) Hemoglobin 14.0 G/DL (12.0-16.0) Hematocrit 44.1 % (37.0-47.0) Mean Corpuscular Volume 98 FL (80-99) Mean Corpuscular Hemoglobin 31.0 PG (27.0-31.0) Mean Corpuscular Hemoglobin Concent 31.7 G/DL (32.0-36.0) L Red Cell Distribution Width 15.7 % (11.6-14.8) H Platelet Count 874 K/UL (150-450) H Mean Platelet Volume 8.3 FL (6.5-10.1) Neutrophils (%) (Auto) % (45.0-75.0) Lymphocytes (%) (Auto) % (20.0-45.0) Monocytes (%) (Auto) % (1.0-10.0) Eosinophils (%) (Auto) % (0.0-3.0) Basophils (%) (Auto) % (0.0-2.0) Differential Total Cells Counted 100 Neutrophils % (Manual) 50 % (45-75) Lymphocytes % (Manual) 14 % (20-45) L Monocytes % (Manual) 17 % (1-10) H Eosinophils % (Manual) 0 % (0-3) Basophils % (Manual) 0 % (0-2) Band Neutrophils 19 % (0-8) H Platelet Estimate Increased H Platelet Morphology Giant Platelets Rare Anisocytosis 1+ Macrocytosis 1+ Urine Color Pale yellow Urine Appearance Slightly cloudy Urine pH 6 (4.5-8.0) Urine Specific [place] 1.015 (1.005-1.035) Urine Protein 4+ (NEGATIVE) H Urine Glucose (UA) Negative (NEGATIVE) Urine Ketones 1+ (NEGATIVE) H Urine Occult Blood 2+ (NEGATIVE) H Urine Nitrite Negative (NEGATIVE) Urine Bilirubin Negative (NEGATIVE) Urine Urobilinogen Normal MG/DL (0.0-1.0) Urine Leukocyte Esterase 2+ (NEGATIVE) H Urine RBC 5-10 /HPF (0 - 2) H Urine WBC 15-20 /HPF (0 - 2) H Urine Squamous Epithelial Cells Few /LPF (NONE/OCC) Urine Bacteria Few /HPF (NONE) Urine Yeast Few /HPF (NONE) H Sodium Level 145 mEQ/L (135-145) Potassium Level 5.0 mEQ/L (3.4-4.9) H Chloride Level 100 mEQ/L (98-107) Carbon Dioxide Level 12 mEQ/L (20-30) L Anion Gap 33 (5-15) H Blood Urea Nitrogen 54 mg/dL (7-23) H Creatinine 1.8 mg/dL (0.5-0.9) H Estimat Glomerular Filtration Rate 28.6 mL/min (>60) Glucose Level 447 mg/dL (74-106) H Lactic Acid Level 11.00 mmol/L (0.66-2.22) H 7.40 mmol/L (0.66-2.22) H 4.70 mmol/L (0.66-2.22) H Calcium Level 10.1 mg/dL (8.6-10.2) Total Bilirubin 0.5 mg/dL (0.0-1.2) Aspartate Amino Transf (AST/SGOT) 53 U/L (5-40) H Alanine Aminotransferase (ALT/SGPT) 25 U/L (3-33) Alkaline Phosphatase 76 U/L (35-104) Total Creatine Kinase 44 U/L (26-140) Troponin I < 0.30 ng/mL (<=0.30) Pro-B-Type Natriuretic Peptide 6296 pg/mL (0-125) H Total Protein 8.7 g/dL (6.6-8.7) Albumin 3.3 g/dL (3.5-5.2) L Globulin 5.4 g/dL Albumin/Globulin Ratio 0.6 (1.0-2.7) L Arterial Blood pH 7.310 (7.350-7.450) Arterial Blood Partial Pressure CO2 27.6 mmHg (35.0-45.0) L Arterial Blood Partial Pressure O2 147.2 mmHg (75.0-100.0) H Arterial Blood HCO3 13.7 mmol/L (22.0-26.0) L Arterial Blood Oxygen Saturation 98.3 % (92.0-98.0) H Arterial Blood Base Excess -11.0 Reji Test Positive Prothrombin Time 16.1 SEC (9.30-11.50) H Prothromb Time International Ratio 1.6 (0.9-1.1) H Activated Partial Thromboplast Time 27 SEC (23-33) Test 05/20/16 23:03 05/21/16 05:10 Lactic Acid Level 4.00 mmol/L (0.66-2.22) H White Blood Count 11.5 K/UL (4.8-10.8) #H Red Blood Count 3.14 M/UL (4.20-5.40) L Hemoglobin 9.7 G/DL (12.0-16.0) #L Hematocrit 30.5 % (37.0-47.0) #L Mean Corpuscular Volume 97 FL (80-99) Mean Corpuscular Hemoglobin 30.9 PG (27.0-31.0) Mean Corpuscular Hemoglobin Concent 31.9 G/DL (32.0-36.0) L Red Cell Distribution Width 15.6 % (11.6-14.8) H Platelet Count 248 K/UL (150-450) # Mean Platelet Volume 8.0 FL (6.5-10.1) Neutrophils (%) (Auto) 77.8 % (45.0-75.0) H Lymphocytes (%) (Auto) 12.2 % (20.0-45.0) L Monocytes (%) (Auto) 9.0 % (1.0-10.0) Eosinophils (%) (Auto) 0.0 % (0.0-3.0) Basophils (%) (Auto) 1.0 % (0.0-2.0) Sodium Level 151 mEQ/L (135-145) H Potassium Level 3.4 mEQ/L (3.4-4.9) Chloride Level 114 mEQ/L (98-107) H Carbon Dioxide Level 23 mEQ/L (20-30) Anion Gap 14 (5-15) Blood Urea Nitrogen 42 mg/dL (7-23) H Creatinine 0.8 mg/dL (0.5-0.9) # Estimat Glomerular Filtration Rate > 60 mL/min (>60) Glucose Level 125 mg/dL (74-106) #H Calcium Level 8.2 mg/dL (8.6-10.2) L Phosphorus Level 3.9 mg/dL (2.5-4.8) Albumin 2.5 g/dL (3.5-5.2) L Current Medications Medications (Trade) Dose Ordered Sig/Kimo Route PRN Reason Start Time Stop Time Status Last Admin Dose Admin Acetaminophen (Tylenol) 650 mg Q4H PRN ORAL FEVER 05/20/16 13:15 06/19/16 13:14 Albuterol/ Ipratropium 3 ml 3 ml EVERY 4 HOURS PRN HHN Shortness of Breath 05/20/16 13:15 05/25/16 13:14 Cefepime HCl 1 gm/ Dextrose 55 ml @ 110 mls/hr Q24H IVPB 05/20/16 21:00 05/27/16 20:59 05/20/16 21:16 Dextrose (Dextrose 50%) STAT PRN IV Hypoglycemia 05/20/16 13:15 06/19/16 13:14 Digoxin (Lanoxin) 0.25 mg DAILY ORAL 05/22/16 09:00 06/21/16 08:59 Heparin Sodium (Porcine) (Heparin 5000 units/ml) 5,000 units EVERY 12 HOURS SUBQ 05/20/16 21:00 06/19/16 20:59 05/21/16 09:30 Insulin Aspart EVERY 6 HOURS SUBQ 05/20/16 21:00 06/19/16 20:59 05/21/16 05:42 Levetiracetam (Keppra) 1,500 mg Q12HR ORAL 05/20/16 21:00 06/19/16 20:59 05/21/16 09:24 Lorazepam (Ativan 2mg/ml 1ml) 2 mg EVERY 2 HOURS PRN IV For Anxiety 05/20/16 13:15 05/27/16 13:14 Morphine Sulfate (Morphine Sulfate) 4 mg EVERY 4 HOURS PRN IVP Severe Pain (Pain Scale 7-10) 05/20/16 13:15 05/27/16 13:14 Ondansetron HCl (Zofran) 4 mg Q6H PRN IVP Nausea & Vomiting 05/20/16 13:15 06/19/16 13:14 Polyethylene Glycol (Miralax) 17 gm DAILYPRN PRN ORAL Constipation 05/20/16 13:15 06/19/16 13:14 Sodium Chloride (0.45% NS 1000ml) 1,000 ml @ 100 mls/hr Q10H IV 05/21/16 11:00 06/20/16 10:59 05/21/16 11:15 Valproic Acid (Depakene) 500 mg Q8HR GT 05/20/16 18:56 06/19/16 13:59 05/21/16 05:41 Vancomycin HCl (Vanco rx to dose) 1 ea DAILY PRN MISC . 05/20/16 19:30 06/19/16 19:29 Vancomycin HCl/ Dextrose (Vancomycin/D5W) 110 ml @ 110 mls/hr Q24H IV 05/21/16 17:00 05/26/16 16:59 RIDDHI RIOS May 21, 2016 11:48
[2016-05-21 12:00] VITALS: BP 119/72
[2016-05-21 16:00] VITALS: BP 106/78
[2016-05-21] MEDS: Vancomycin 500 MG in D5W 110 ML IV SCH (16:53)
--- NOTE | 2016-05-21 17:08 | Wound Care Consultation ---
Wound Assessment Wound Assessment #1: Wound Present on Admission: Yes New Wound: No Status Change of Wound: No Wound Location Body Site Modif: mid Wound Location Body Site: sacral Wound Type: pressure ulcer Angelo Test: Does not Angelo Pressure Ulcer Stage: IV/unstageable Wound Thickness: Full Thickness Wound Length: 1.0 Wound Width: 1.0 Wound Depth: 1.0 Percent of Wound [place]/Red: 100 Wound Drainage Description: Serosanguineous Wound Drainage Amount: Moderate Wound Drainage Odor: None/Absent Tissue Surrounding Wound: Macerated Wound General Appearance: Reddened, Draining Wound Assessment #2: Wound Number: #2 Wound Present on Admission: Yes New Wound: No Status Change of Wound: No Wound Location Body Site Modif: right Wound Location Body Site: malleolus/ankle Wound Type: pressure ulcer Angelo Test: Does not Angelo Pressure Ulcer Stage: IV/unstageable Wound Thickness: Full Thickness Wound Length: 3.5 Wound Width: 3.0 Wound Depth: utd Percent of Wound [place]/Red: 50 Percent of Wound Bed Yellow/Wh: 50 Wound Drainage Description: Serosanguineous Wound Drainage Amount: Moderate Wound Drainage Odor: None/Absent Tissue Surrounding Wound: Macerated Wound General Appearance: Reddened, Draining Wound Assessment #3: Wound Number: #3 Wound Present on Admission: Yes New Wound: No Status Change of Wound: No Wound Location Body Site Modif: right Wound Location Body Site: metatarsal head - between 2nd nd 3rd metatarsal head Wound Type: pressure ulcer Angelo Test: Does not Angelo Pressure Ulcer Stage: IV/unstageable Wound Thickness: Full Thickness Wound Length: 3.5 Wound Width: 2.5 Wound Depth: utd Percent of Wound Black/Brown: 100 Wound Drainage Amount: None Wound Drainage Odor: None/Absent Tissue Surrounding Wound: Indurated Wound General Appearance: Blackened Wound Assessment #4: Wound Number: #4 Wound Present on Admission: Yes New Wound: No Status Change of Wound: No Wound Location Body Site Modif: left Wound Location Body Site: malleolus/ankle Wound Type: pressure ulcer Angelo Test: Does not Angelo Pressure Ulcer Stage: IV/unstageable Wound Thickness: Full Thickness Wound Length: 2.5 Wound Width: 2.5 Wound Depth: utd Percent of Wound Bed Yellow/Wh: 20 Percent of Wound Black/Brown: 80 Wound Drainage Description: Serosanguineous Wound Drainage Amount: Scant Wound Drainage Odor: None/Absent Tissue Surrounding Wound: Macerated Wound General Appearance: Blackened Wound Assessment #5: Wound Number: #5 Wound Present on Admission: Yes New Wound: No Status Change of Wound: No Wound Location Body Site Modif: left Wound Location Body Site: metatarsal head - 1st Wound Type: pressure ulcer Angelo Test: Does not Angelo Pressure Ulcer Stage: IV/unstageable Wound Thickness: Full Thickness Wound Length: 4.0 Wound Width: 3.0 Wound Depth: utd Percent of Wound Bed Yellow/Wh: 100 Wound Drainage Description: Serosanguineous Wound Drainage Amount: Moderate Tissue Surrounding Wound: Macerated Wound General Appearance: Blackened Wound Assessment #6: Wound Number: #6 Wound Present on Admission: Yes New Wound: No Status Change of Wound: No Wound Location Body Site Modif: right Wound Location Body Site: metatarsal head - 1st Wound Type: pressure ulcer Angelo Test: Does not Angelo Pressure Ulcer Stage: IV/unstageable Wound Thickness: Full Thickness Wound Length: 3.0 Wound Width: 3.0 Wound Depth: utd Percent of Wound [place]/Red: 30 Percent of Wound Bed Yellow/Wh: 20 Percent of Wound Black/Brown: 50 Wound Drainage Description: Serosanguineous Wound Drainage Amount: Moderate Wound Drainage Odor: None/Absent Tissue Surrounding Wound: Macerated Wound General Appearance: Draining Wound Assessment #7: Wound Number: #7 Wound Present on Admission: Yes New Wound: No Status Change of Wound: No Wound Location Body Site Modif: left Wound Location Body Site: metatarsal head - 1st Wound Type: pressure ulcer Angelo Test: Does not Angelo Pressure Ulcer Stage: IV/unstageable Wound Thickness: Full Thickness Wound Length: 2.5 Wound Width: 3.0 Wound Depth: utd Percent of Wound Black/Brown: 100 Wound Drainage Amount: None Wound Drainage Odor: None/Absent Tissue Surrounding Wound: Indurated Wound General Appearance: Reddened Wound Assessment #8: Wound Number: #8 Wound Present on Admission: Yes New Wound: No Status Change of Wound: No Wound Location Body Site Modif: left Wound Location Body Site: toe - big toe Wound Type: pressure ulcer Angelo Test: Does not Angelo Pressure Ulcer Stage: deep tissue injury Wound Thickness: Full Thickness Wound Length: 2.0 Wound Width: 0.5 Wound Depth: utd Percent of Wound Purple/Maroon: 100 Wound Drainage Amount: None Wound Drainage Odor: None/Absent Tissue Surrounding Wound: Intact Wound General Appearance: Blackened Wound Assessment #9: Wound Number: #9 Wound Present on Admission: Yes New Wound: No Status Change of Wound: No Wound Location Body Site: perineal area Wound Type: chemical burn Angelo Test: Does not Angelo Percent of Wound [place]/Red: 100 Tissue Surrounding Wound: Erythemic Wound General Appearance: Reddened Wound Assessment #10: Wound Number: #10 Wound Present on Admission: Yes New Wound: No Status Change of Wound: No Wound Location Body Site Modif: left, lower, anterior Wound Location Body Site: leg Wound Type: scab Angelo Test: Does not Angelo Wound Thickness: Full Thickness Wound Length: 2.0 Wound Width: 1.5 Percent of Wound [place]/Red: 100 Wound Drainage Amount: None Wound Drainage Odor: None/Absent Tissue Surrounding Wound: Intact Wound Assessment #11: Wound Number: #11 Wound Present on Admission: Yes New Wound: No Status Change of Wound: No Wound Location Body Site Modif: left Wound Location Body Site: ischial tuberosity Wound Type: pressure ulcer Angelo Test: Does not Angelo Pressure Ulcer Stage: deep tissue injury Wound Thickness: Full Thickness Wound Length: 3.0 Wound Width: 4.0 Wound Depth: utd Percent of Wound Purple/Maroon: 100 Wound Drainage Amount: None Wound Drainage Odor: None/Absent Tissue Surrounding Wound: Erythemic Wound General Appearance: Reddened Wound Assessment #12: Wound Number: #12 Wound Present on Admission: Yes New Wound: No Status Change of Wound: No Wound Location Body Site Modif: right Wound Location Body Site: ischial tuberosity Wound Type: pressure ulcer Angelo Test: Does not Angelo Pressure Ulcer Stage: deep tissue injury Wound Thickness: Full Thickness Wound Length: 3.0 Wound Width: 4.0 Wound Depth: utd Percent of Wound Purple/Maroon: 100 Wound Drainage Amount: None Wound Drainage Odor: None/Absent Tissue Surrounding Wound: Erythemic Wound General Appearance: Reddened Wound Comment #1 Sacral area stage IV/unstageable pressure ulcer #2 Right 1st metatarsal head IV/unstageable pressure ulcer #3 Right malleolus IV/unstageable pressure ulcer #4 Right between 2nd and 3rd metatarsal head pressure ulcer #5 Left malleolus IV/unstageable pressure ulcer #6 Left 5th metatarsal head stage IV/unstageable pressure ulcer #7 Left ischial tuberosity SDTI pressure ulcer #8 Right ischial tuberosity SDTI pressure ulcer #9 Left Big posterior big toe stage DTI pressure ulcer #10 Left 1st metatarsal head IV/unstageable pressure ulcer #11 Left anterior lower leg with scab #12 Chemical burn on perineal area Recommendation -Sacral pressure ulcer Cleanse with saline pat dry apply Triad cream cover with bordered gauze daily and PRN soiled/dislodged -Right between 2nd and 3rd metatarsal head, left 1st metatarsal head and left posterior big toe DTI Cleanse with saline pat dry paint with Betadine cover with bordered gauze daily and PRN soiled/dislodged -Right malleolus, Right 1st metatarsal head, Left malleolus and right 5th metatarsal head Cleanse with saline pat dry apply hydrogel apply calcium alginate cover with bordered gauze daily and PRN soiled/dislodged -Chemical burn perineal, Left and right ischial tuberosity Cleanse with saline pat dry apply Triad cream and leave area open to air -Turn and reposition -Keep clean and dry -Optimize nutrition -Offload both heels -Low air loss overlay mattress -Assess and f/u accordingly for any changes CARMELITA DE SOUZA RN May 21, 2016 17:08
[2016-05-21 20:00] VITALS: BP 119/74
[2016-05-21] MEDS: Cefepime HCl 2 GM in D5W 55 ML IV SCH (20:51)
--- NOTE | 2016-05-21 22:09 | History and Physical Report ---
DATE OF ADMISSION: 05/20/2016 REASON FOR ADMISSION: Possible sepsis. HISTORY OF PRESENT ILLNESS: The patient is a 60-year-old unfortunate female, who has had multiple admissions to the [facility]. The patient presents with respiratory distress, tachycardia, and the patient is admitted with possible sepsis. The patient has had multiple admissions here to the [facility]. PAST MEDICAL HISTORY: Notable for diabetes, COPD, hypertension, cardiac disease, anoxic brain damage, seizure disorder, and aphasia. MEDICATIONS: Reviewed. ALLERGIES: Reviewed. SOCIAL HISTORY: Noted and reviewed. The patient is a [facility] patient. PHYSICAL EXAMINATION: GENERAL: A well-developed female, chronically ill. VITAL SIGNS: Heart rate 134, respiratory rate 24, saturation 96%, and blood pressure 94/68, the patient is on BiPAP. HEENT: Fairly negative. NECK: Supple. LUNGS: Coarse breath sounds. CARDIAC: S1 and S2. Tachycardic. ABDOMEN: Soft and nontender. EXTREMITIES: Noted. LABORATORY DATA: Laboratory data is reviewed. IMPRESSION: 1. Tachyarrhythmias. 2. Hypotension. 3. Sepsis. 4. Respiratory failure. 5. Seizure disorder. RECOMMENDATIONS: We will obtain arterial blood gases to assess the worsening metabolic acidosis. The patient was in respiratory distress but appears to have resolved. BiPAP as needed. Monitor clinically. IV antibiotics empirically and need to control heart rate. At present, the patient will be monitor for respiratory deterioration, respiratory distress. Yimi Ansari M.D. DR: DEAN JOB#: [id number] CC: NAYELI
[2016-05-22] VITALS: BP 104/61
[2016-05-22] MEDS: NovoLOG Insulin Flexpen SUBQ SCH ×4 (00:07→18:27)
--- NOTE | 2016-05-22 00:39 | Consultation ---
DATE OF CONSULTATION: 05/21/2016 INFECTIOUS DISEASE CONSULTATION This consult is for coverage of Dr. Lee. PRIMARY ATTENDING PHYSICIAN: Aida Lopez M.D. REASON FOR CONSULTATION: Sepsis. HISTORY OF PRESENT ILLNESS: The patient is a 60-year-old female, who is a half-way resident admitted yesterday because of respiratory distress, tachycardia, high fever of 103.5 in hospital, heart rate was 176. The patient has significant leukocytosis of 20.4. Has respiratory failure, on BiPAP. PAST MEDICAL HISTORY: Significant for diabetes mellitus, status post CVA, status post G-tube placement, quadriplegia, MRSA colonization, anemia, functional quadriplegia. ALLERGIES: No known drug allergies. MEDICATIONS: Zosyn, vancomycin, Keppra, cefepime, insulin, clonidine, Tylenol, Zofran, lorazepam, and valproic acid. SOCIAL HISTORY: senior care resident. No other history obtainable. PHYSICAL EXAMINATION: GENERAL APPEARANCE: Awake, alert, and in no acute distress. VITAL SIGNS: Temperature 99, pulse is 131, blood pressure is 94/68. HEAD AND NECK: On BiPAP. HEART: Tachycardiac. LUNGS: Decreased sounds at the bases. ABDOMEN: Soft. G-tube in place. EXTREMITIES: No edema. SKIN: Positive scabs and warmth in the lower extremities. LABORATORY AND DIAGNOSTIC DATA: WBC today is 11.5, hemoglobin 9.7, hematocrit 30.5, platelets 248,000. Sodium 151, potassium 3.4, chloride 114, bicarbonate is 23, BUN 14, creatinine 0.8. Glucose 125, lactic acid which was 11 decreased to 4. Albumin is 2.5. Chest x-ray shows lower lobe atelectasis. IMPRESSION: 1. Severe sepsis with lactic acidosis. 2. Tachycardia. 3. Leukocytosis. 4. Urinary tract infection. The patient has mild pyuria. 5. Atelectasis in both lungs and early pneumonia. 6. The patient has respiratory failure, multiple pressure ulcers, lactic acidosis. 7. The patient has quadriplegia and anemia. RECOMMENDATION: We will continue with vancomycin and cefepime. At the end of my exam, I thanked Dr. Lopez for involving me in the care of this patient. Jordy Pimentel M.D. DR: JYOTI JOB#: [id number] CC: NAYELI
[2016-05-22 04:00] VITALS: BP 101/72
[2016-05-22 06:01] LABS: MEAN CORPUSCULAR HEMOGLOBIN 31.2 PG (27.0-31.0); MEAN CORPUSCULAR HGB CONC 31.9 G/DL (32.0-36.0); MEAN CORPUSCULAR VOLUME 98 FL (80-99); MEAN PLATELET VOLUME 8.5 FL (6.5-10.1); PLATELET COUNT 224 K/UL (150-450); RED BLOOD COUNT 2.63 M/UL (4.20-5.40); RED CELL DISTRIBUTION WIDTH 14.9 % (11.6-14.8); WHITE BLOOD COUNT 9.7 K/UL (4.8-10.8)
[2016-05-22 06:23] LABS: ANION GAP 12 (5-15); CALCIUM 8.3 mg/dL (8.6-10.2); CARBON DIOXIDE 23 mEQ/L (20-30); CHLORIDE 114 mEQ/L (98-107); CREATININE 0.5 mg/dL (0.5-0.9); GLOMERULAR FILTRATION RATE > 60 mL/min (>60); HEMOLYSIS 7; POTASSIUM 3.5 mEQ/L (3.4-4.9); SODIUM 149 mEQ/L (135-145)
[2016-05-22] MEDS: Valproic Acid 250mg/5ml Liquid GT SCH ×3 (06:32→22:17)
[2016-05-22 08:00] VITALS: BP 123/73
[2016-05-22] MEDS: Cefepime HCl 2 GM in D5W 55 ML IV SCH ×2 (09:00→22:11)
[2016-05-22] MEDS: levETIRAcetam 500mg/5ml Liquid ORAL SCH ×2 (09:01→22:45)
[2016-05-22] MEDS: Heparin 5000 units/ml inj SUBQ SCH ×2 (09:04→22:16)
[2016-05-22 09:58] LABS: BAND NEUTROPHILS % (MANUAL) 8 % (0-8); BASOPHILS % (MANUAL) 0 % (0-2); EOSINOPHILS % (MANUAL) 0 % (0-3); LYMPHOCYTES % (MANUAL) 7 % (20-45); NEUTROPHILS % (MANUAL) 81 % (45-75); PLATELET ESTIMATE ADEQUATE; PLATELET MORPHOLOGY NORMAL; TOTAL CELLS COUNTED 100
[2016-05-22 09:59] LABS: HYPOCHROMASIA 1+
[2016-05-22 10:00] LABS: ANISOCYTOSIS 1+; MACROCYTES 1+
--- NOTE | 2016-05-22 10:59 | Infectious Diseases Prog Note ---
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 Recent MRSA UTI SP Rx // Acute respiratory failure // Chronic left hip fx // Thrombocytosis // h/o CVA // Dysphagia SP PEG // Functional quadriplegia / bedbound // NKDA // DNR PLAN: - continue IV vancomycin and cefepime d# 1 ( 04/30 SP flagyl d# 5 ) ( 04/26 SP cefepime d# 1 ) ( 04/14 SP IV vancomycin, cefepime d# 7 / ) - f/u final cultures - monitor CBC, temperatures - monitor BMP - monitor CXR - wound care - aspiration precautions Subjective Constitutional: Denies: anorexia, chills, drenching sweats, fatigue, fever, no symptoms, other Allergies: Coded Allergies: NO KNOWN DRUG ALLERGIES (Unverified Allergy, Unknown, 06/01/14) Objective Vital Signs Last 24 Hour Vital Signs Date Time Temp Pulse Resp B/P Pulse Ox O2 Delivery O2 Flow Rate FiO2 05/22/16 09:14 99 16 100 Full Face 35 05/22/16 09:02 98 05/22/16 08:00 98.1 96 21 123/73 100 Bi-pap 35 05/22/16 08:00 100 05/22/16 08:00 35 05/22/16 07:09 109 17 100 Full Face 35 05/22/16 05:43 111 20 99 Full Face 35 05/22/16 04:00 35 05/22/16 04:00 105 05/22/16 04:00 97.4 105 22 101/72 99 Mechanical Ventilator 35 05/22/16 03:22 116 18 99 Full Face 35 05/22/16 01:12 109 20 99 Full Face 35 05/22/16 00:00 97.7 114 25 104/61 100 Bi-pap 35 05/22/16 00:00 35 05/21/16 23:10 119 23 100 Full Face 35 05/21/16 21:37 121 17 100 Full Face 35 05/21/16 20:00 35 05/21/16 20:00 118 05/21/16 20:00 98.1 108 18 119/74 98 Bi-pap 35 05/21/16 19:28 117 19 100 Full Face 35 05/21/16 17:30 125 23 99 Full Face 35 05/21/16 16:00 35 05/21/16 16:00 121 05/21/16 16:00 97.7 125 20 106/78 98 Bi-pap 35 05/21/16 15:21 121 23 98 Facial 35 05/21/16 12:54 130 27 96 Facial 35 05/21/16 12:00 97.9 133 19 119/72 98 Bi-pap 35 05/21/16 12:00 35 05/21/16 11:22 131 21 95 Facial 35 05/21/16 10:45 131 Height (Feet): 5 Height (Inches): 4.00 Weight (Pounds): 139 HEENT: anicteric Respiratory/Chest: no respiratory distress Abdomen: no organomegaly Microbiology Date/Time Source Procedure Growth Status 05/20/16 12:50 Blood Blood Culture - Preliminary NO GROWTH AFTER 24 HOURS Resulted 05/20/16 12:50 Blood Blood Culture - Preliminary NO GROWTH AFTER 24 HOURS Resulted 05/20/16 16:13 Nasal Nares Influenza Types A,B Antigen (RENA) - Final Complete 05/20/16 12:50 Urine,Clean Catch Urine Culture - Preliminary YEAST Resulted Laboratory Tests Test 05/22/16 04:50 White Blood Count 9.7 K/UL (4.8-10.8) Red Blood Count 2.63 M/UL (4.20-5.40) L Hemoglobin 8.2 G/DL (12.0-16.0) L Hematocrit 25.8 % (37.0-47.0) L Mean Corpuscular Volume 98 FL (80-99) Mean Corpuscular Hemoglobin 31.2 PG (27.0-31.0) H Mean Corpuscular Hemoglobin Concent 31.9 G/DL (32.0-36.0) L Red Cell Distribution Width 14.9 % (11.6-14.8) H Platelet Count 224 K/UL (150-450) Mean Platelet Volume 8.5 FL (6.5-10.1) Neutrophils (%) (Auto) % (45.0-75.0) Lymphocytes (%) (Auto) % (20.0-45.0) Monocytes (%) (Auto) % (1.0-10.0) Eosinophils (%) (Auto) % (0.0-3.0) Basophils (%) (Auto) % (0.0-2.0) Differential Total Cells Counted 100 Neutrophils % (Manual) 81 % (45-75) H Lymphocytes % (Manual) 7 % (20-45) L Monocytes % (Manual) 4 % (1-10) Eosinophils % (Manual) 0 % (0-3) Basophils % (Manual) 0 % (0-2) Band Neutrophils 8 % (0-8) Platelet Estimate Adequate Platelet Morphology Normal Hypochromasia 1+ Anisocytosis 1+ Macrocytosis 1+ Sodium Level 149 mEQ/L (135-145) H Potassium Level 3.5 mEQ/L (3.4-4.9) Chloride Level 114 mEQ/L (98-107) H Carbon Dioxide Level 23 mEQ/L (20-30) Anion Gap 12 (5-15) Blood Urea Nitrogen 26 mg/dL (7-23) H Creatinine 0.5 mg/dL (0.5-0.9) Estimat Glomerular Filtration Rate > 60 mL/min (>60) Glucose Level 118 mg/dL (74-106) H Calcium Level 8.3 mg/dL (8.6-10.2) L Current Medications Medications (Trade) Dose Ordered Sig/Kimo Route PRN Reason Start Time Stop Time Status Last Admin Dose Admin Acetaminophen (Tylenol) 650 mg Q4H PRN ORAL FEVER 05/20/16 13:15 06/19/16 13:14 Albuterol/ Ipratropium 3 ml 3 ml EVERY 4 HOURS PRN HHN Shortness of Breath 05/20/16 13:15 05/25/16 13:14 Cefepime HCl/ Dextrose (Maxipime/D5W) 55 ml @ 110 mls/hr Q12HR@0900,2100 IV 05/21/16 21:00 05/28/16 20:59 05/22/16 09:00 Dextrose (Dextrose 50%) STAT PRN IV Hypoglycemia 05/20/16 13:15 06/19/16 13:14 Digoxin 0.25 mg 0.25 mg DAILY ORAL 05/22/16 09:00 06/21/16 08:59 05/22/16 09:02 Heparin Sodium (Porcine) (Heparin 5000 units/ml) 5,000 units EVERY 12 HOURS SUBQ 05/20/16 21:00 06/19/16 20:59 05/22/16 09:04 Insulin Aspart EVERY 6 HOURS SUBQ 05/20/16 21:00 06/19/16 20:59 05/22/16 06:28 Levetiracetam (Keppra) 1,500 mg Q12HR ORAL 05/20/16 21:00 06/19/16 20:59 05/22/16 09:01 Lorazepam (Ativan 2mg/ml 1ml) 2 mg EVERY 2 HOURS PRN IV For Anxiety 05/20/16 13:15 05/27/16 13:14 Morphine Sulfate (Morphine Sulfate) 4 mg EVERY 4 HOURS PRN IVP Severe Pain (Pain Scale 7-10) 05/20/16 13:15 05/27/16 13:14 Ondansetron HCl (Zofran) 4 mg Q6H PRN IVP Nausea & Vomiting 05/20/16 13:15 06/19/16 13:14 Polyethylene Glycol (Miralax) 17 gm DAILYPRN PRN ORAL Constipation 05/20/16 13:15 06/19/16 13:14 Sodium Chloride (0.45% NS 1000ml) 1,000 ml @ 100 mls/hr Q10H IV 05/21/16 11:00 06/20/16 10:59 05/22/16 06:33 Valproic Acid (Depakene) 500 mg Q8HR GT 05/20/16 18:56 06/19/16 13:59 05/22/16 06:32 Vancomycin HCl (Vanco rx to dose) 1 ea DAILY PRN MISC . 05/20/16 19:30 06/19/16 19:29 Vancomycin HCl/ Dextrose (Vancomycin/D5W) 110 ml @ 110 mls/hr Q24H IV 05/21/16 17:00 05/26/16 16:59 05/21/16 16:53 DEIDRA RAMOS M.D. May 22, 2016 10:59
--- NOTE | 2016-05-22 11:11 | General Progress Note ---
Assessment/Plan Assessment/Plan respiratory failure tachyarrythmias sepsis anemia GT ALOC PLAN respiratory care antibiotics dc BIPAP if stable, dc to SNF on IV antibiotics Subjective Allergies: Coded Allergies: NO KNOWN DRUG ALLERGIES (Unverified Allergy, Unknown, 06/01/14) Subjective hemodynamics better on BIPAP without distress Objective Last 24 Hour Vital Signs Date Time Temp Pulse Resp B/P Pulse Ox O2 Delivery O2 Flow Rate FiO2 05/22/16 11:02 99 16 100 Full Face 35 05/22/16 09:14 99 16 100 Full Face 35 05/22/16 09:02 98 05/22/16 08:00 98.1 96 21 123/73 100 Bi-pap 35 05/22/16 08:00 100 05/22/16 08:00 35 05/22/16 07:09 109 17 100 Full Face 35 05/22/16 05:43 111 20 99 Full Face 35 05/22/16 04:00 35 05/22/16 04:00 105 05/22/16 04:00 97.4 105 22 101/72 99 Mechanical Ventilator 35 05/22/16 03:22 116 18 99 Full Face 35 05/22/16 01:12 109 20 99 Full Face 35 05/22/16 00:00 97.7 114 25 104/61 100 Bi-pap 35 05/22/16 00:00 35 05/21/16 23:10 119 23 100 Full Face 35 05/21/16 21:37 121 17 100 Full Face 35 05/21/16 20:00 35 05/21/16 20:00 118 05/21/16 20:00 98.1 108 18 119/74 98 Bi-pap 35 05/21/16 19:28 117 19 100 Full Face 35 05/21/16 17:30 125 23 99 Full Face 35 05/21/16 16:00 35 05/21/16 16:00 121 05/21/16 16:00 97.7 125 20 106/78 98 Bi-pap 35 05/21/16 15:21 121 23 98 Facial 35 05/21/16 12:54 130 27 96 Facial 35 05/21/16 12:00 97.9 133 19 119/72 98 Bi-pap 35 05/21/16 12:00 35 05/21/16 11:22 131 21 95 Facial 35 Intake and Output 05/21/16 05/22/16 19:00 07:00 Intake Total 1880 ml 1768 ml Output Total 450 ml 530 ml Balance 1430 ml 1238 ml Intake Free Water 250 ml 200 ml IV Total 1610 ml 1098 ml Tube Feeding 20 ml 470 ml Output Urine Total 450 ml 530 ml # Bowel Movements 1 1 Laboratory Tests 05/22/16 04:50: White Blood Count 9.7, Red Blood Count 2.63L, Hemoglobin 8.2L, Hematocrit 25.8L , Mean Corpuscular Volume 98, Mean Corpuscular Hemoglobin 31.2H, Mean Corpuscular Hemoglobin Concent 31.9L, Red Cell Distribution Width 14.9H, Platelet Count 224, Mean Platelet Volume 8.5, Neutrophils (%) (Auto) , Lymphocytes (%) (Auto) , Monocytes (%) (Auto) , Eosinophils (%) (Auto) , Basophils (%) (Auto) , Differential Total Cells Counted 100, Neutrophils % ( Manual) 81H, Lymphocytes % (Manual) 7L, Monocytes % (Manual) 4, Eosinophils % ( Manual) 0, Basophils % (Manual) 0, Band Neutrophils 8, Platelet Estimate Adequate, Platelet Morphology Normal, Hypochromasia 1+, Anisocytosis 1+, Macrocytosis 1+, Sodium Level 149H, Potassium Level 3.5, Chloride Level 114H, Carbon Dioxide Level 23, Anion Gap 12, Blood Urea Nitrogen 26H, Creatinine 0.5, Estimat Glomerular Filtration Rate > 60, Glucose Level 118H, Calcium Level 8.3L Height (Feet): 5 Height (Inches): 4.00 Weight (Pounds): 139 Objective WDWN NAD clear breath sounds bilaterally without rhonchi or wheeze [id number] without MRG NABS nontender no HSM; GT no CCE on BIPAP RICKEY MAS May 22, 2016 11:11
[2016-05-22 12:00] VITALS: BP 119/73
--- NOTE | 2016-05-22 15:04 | Cardiology Report ---
APPROVED REPORT EKG Measurement Heart [id number] Sinus tachycardia Nonspecific ST and T wave abnormality Abnormal ECG
[2016-05-22 15:05] LABS: ABG ALLEN TEST POSITIVE; ABG BASE EXCESS 0.9
[2016-05-22 16:00] VITALS: BP 110/69
[2016-05-22] MEDS: Vancomycin 500 MG in D5W 110 ML IV SCH (18:26)
[2016-05-22 20:00] VITALS: BP 90/60
[2016-05-23] VITALS: BP 97/66
[2016-05-23] MEDS: NovoLOG Insulin Flexpen SUBQ SCH ×3 (00:11→12:31)
[2016-05-23 04:00] VITALS: BP 100/66
[2016-05-23] MEDS: Valproic Acid 250mg/5ml Liquid GT SCH ×2 (06:49→14:00)
--- NOTE | 2016-05-23 07:38 | General Progress Note ---
Assessment/Plan Assessment/Plan respiratory failure tachyarrythmias sepsis anemia GT ALOC PLAN respiratory care antibiotics off BIPAP dc to SNF on IV antibiotics Subjective Allergies: Coded Allergies: NO KNOWN DRUG ALLERGIES (Unverified Allergy, Unknown, 06/01/14) Subjective hemodynamics better off BIPAP without distress Objective Last 24 Hour Vital Signs Date Time Temp Pulse Resp B/P Pulse Ox O2 Delivery O2 Flow Rate FiO2 05/23/16 04:00 97.7 94 24 100/66 99 Nasal Cannula 3.0 05/23/16 03:54 93 05/23/16 00:18 94 05/23/16 00:02 100 Nasal Cannula 3.0 32 05/23/16 00:00 97.7 91 24 97/66 100 Nasal Cannula 3.0 05/22/16 20:08 97 05/22/16 20:00 96.5 95 18 90/60 100 Nasal Cannula 3.0 05/22/16 19:00 100 Nasal Cannula 3.0 32 05/22/16 19:00 Nasal Cannula 3.0 32 05/22/16 18:00 104 05/22/16 16:00 3.0 05/22/16 16:00 104 05/22/16 16:00 98.3 104 22 110/69 100 Nasal Cannula 3.0 05/22/16 16:00 104 05/22/16 12:26 106 22 99 3.0 32 05/22/16 12:00 97.9 97 19 119/73 100 Mechanical Ventilator 35 05/22/16 12:00 3.0 05/22/16 11:02 99 16 100 Full Face 35 05/22/16 09:14 99 16 100 Full Face 35 05/22/16 09:02 98 05/22/16 08:00 98.1 96 21 123/73 100 Bi-pap 35 05/22/16 08:00 100 05/22/16 08:00 35 Intake and Output 05/22/16 05/23/16 19:00 07:00 Intake Total 1735 ml 1260 ml Output Total 625 ml Balance 1735 ml 635 ml Intake Free Water 155 ml IV Total 1100 ml 900 ml Tube Feeding 480 ml 360 ml Output Urine Total 625 ml Laboratory Tests 05/22/16 14:48: Arterial Blood pH 7.429, Arterial Blood Partial Pressure CO2 39.0, Arterial Blood Partial Pressure O2 98.0, Arterial Blood HCO3 25.2, Arterial Blood Oxygen Saturation 97.0, Arterial Blood Base Excess 0.9, Reji Test Positive Height (Feet): 5 Height (Inches): 4.00 Weight (Pounds): 139 Objective WDWN NAD clear breath sounds bilaterally without rhonchi or wheeze [id number] without MRG NABS nontender no HSM; GT no CCE off BIPAP RICKEY MAS May 23, 2016 07:38
[2016-05-23 08:00] VITALS: BP 107/68
[2016-05-23] MEDS: Cefepime HCl 2 GM in D5W 55 ML IV SCH (09:12)
[2016-05-23] MEDS: levETIRAcetam 500mg/5ml Liquid ORAL SCH (09:13)
[2016-05-23] MEDS: Heparin 5000 units/ml inj SUBQ SCH (09:15)
[2016-05-23 12:00] VITALS: BP 150/102
--- NOTE | 2016-05-23 12:36 | Infectious Diseases Prog Note ---
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 Recent MRSA UTI SP Rx // Acute respiratory failure // Chronic left hip fx // Thrombocytosis // h/o CVA // Dysphagia SP PEG // Functional quadriplegia / bedbound // NKDA // DNR PLAN: - continue IV vancomycin and cefepime d# 3 / ( 04/30 SP flagyl d# 5 ) ( 04/26 SP cefepime d# 1 ) ( 04/14 SP IV vancomycin, cefepime d# / ) - f/u final cultures - monitor CBC, temperatures - monitor BMP - monitor CXR - wound care - aspiration precautions Subjective Constitutional: Denies: anorexia, chills, drenching sweats, fatigue, fever, no symptoms, other Allergies: Coded Allergies: NO KNOWN DRUG ALLERGIES (Unverified Allergy, Unknown, 06/01/14) Objective Vital Signs Last 24 Hour Vital Signs Date Time Temp Pulse Resp B/P Pulse Ox O2 Delivery O2 Flow Rate FiO2 05/23/16 09:12 96 05/23/16 08:00 88 05/23/16 08:00 100 Nasal Cannula 3.0 32 05/23/16 08:00 Nasal Cannula 3.0 32 05/23/16 04:00 97.7 94 24 100/66 99 Nasal Cannula 3.0 05/23/16 03:54 93 05/23/16 00:18 94 05/23/16 00:02 100 Nasal Cannula 3.0 32 05/23/16 00:00 97.7 91 24 97/66 100 Nasal Cannula 3.0 05/22/16 20:08 97 05/22/16 20:00 96.5 95 18 90/60 100 Nasal Cannula 3.0 05/22/16 19:00 100 Nasal Cannula 3.0 32 05/22/16 19:00 Nasal Cannula 3.0 32 05/22/16 18:00 104 05/22/16 16:00 3.0 05/22/16 16:00 104 05/22/16 16:00 98.3 104 22 110/69 100 Nasal Cannula 3.0 05/22/16 16:00 104 Height (Feet): 5 Height (Inches): 4.00 Weight (Pounds): 139 HEENT: atraumatic Respiratory/Chest: normal breath sounds Cardiovascular: regular rhythm Abdomen: soft, non tender Microbiology Date/Time Source Procedure Growth Status 05/20/16 12:50 Blood Blood Culture - Preliminary NO GROWTH AFTER 48 HOURS Resulted 05/20/16 12:50 Blood Blood Culture - Preliminary NO GROWTH AFTER 48 HOURS Resulted 05/20/16 16:13 Nasal Nares Influenza Types A,B Antigen (RENA) - Final Complete 05/20/16 12:50 Urine,Clean Catch Urine Culture - Final Jessica Tropicalis Complete Laboratory Tests Test 05/22/16 14:48 Arterial Blood pH 7.429 (7.350-7.450) Arterial Blood Partial Pressure CO2 39.0 mmHg (35.0-45.0) Arterial Blood Partial Pressure O2 98.0 mmHg (75.0-100.0) Arterial Blood HCO3 25.2 mmol/L (22.0-26.0) Arterial Blood Oxygen Saturation 97.0 % (92.0-98.0) Arterial Blood Base Excess 0.9 Reji Test Positive Current Medications Medications (Trade) Dose Ordered Sig/Kimo Route PRN Reason Start Time Stop Time Status Last Admin Dose Admin Acetaminophen (Tylenol) 650 mg Q4H PRN ORAL FEVER 05/20/16 13:15 06/19/16 13:14 Albuterol/ Ipratropium 3 ml 3 ml EVERY 4 HOURS PRN HHN Shortness of Breath 05/20/16 13:15 05/25/16 13:14 Cefepime HCl/ Dextrose (Maxipime/D5W) 55 ml @ 110 mls/hr Q12HR@0900,2100 IV 05/21/16 21:00 05/28/16 20:59 05/23/16 09:12 Dextrose (Dextrose 50%) STAT PRN IV Hypoglycemia 05/20/16 13:15 06/19/16 13:14 Digoxin 0.25 mg 0.25 mg DAILY ORAL 05/22/16 09:00 06/21/16 08:59 05/23/16 09:12 Heparin Sodium (Porcine) (Heparin 5000 units/ml) 5,000 units EVERY 12 HOURS SUBQ 05/20/16 21:00 06/19/16 20:59 05/23/16 09:15 Insulin Aspart EVERY 6 HOURS SUBQ 05/20/16 21:00 06/19/16 20:59 05/23/16 00:11 Levetiracetam (Keppra) 1,500 mg Q12HR ORAL 05/20/16 21:00 06/19/16 20:59 05/23/16 09:13 Lorazepam (Ativan 2mg/ml 1ml) 2 mg EVERY 2 HOURS PRN IV For Anxiety 05/20/16 13:15 05/27/16 13:14 Morphine Sulfate (Morphine Sulfate) 4 mg EVERY 4 HOURS PRN IVP Severe Pain (Pain Scale 7-10) 05/20/16 13:15 05/27/16 13:14 Ondansetron HCl (Zofran) 4 mg Q6H PRN IVP Nausea & Vomiting 05/20/16 13:15 06/19/16 13:14 Polyethylene Glycol (Miralax) 17 gm DAILYPRN PRN ORAL Constipation 05/20/16 13:15 06/19/16 13:14 Sodium Chloride (0.45% NS 1000ml) 1,000 ml @ 100 mls/hr Q10H IV 05/21/16 11:00 06/20/16 10:59 05/23/16 06:49 Valproic Acid (Depakene) 500 mg Q8HR GT 05/20/16 18:56 06/19/16 13:59 05/23/16 06:49 Vancomycin HCl (Vanco rx to dose) 1 ea DAILY PRN MISC . 05/20/16 19:30 06/19/16 19:29 Vancomycin HCl/ Dextrose (Vancomycin/D5W) 110 ml @ 110 mls/hr Q24H IV 05/21/16 17:00 05/26/16 16:59 05/22/16 18:26 DEIDRA RAMOS M.D. May 23, 2016 12:36
[2016-05-23 16:00] VITALS: BP 127/87
[2016-05-23] MEDS ORDERED: Vancomycin 750mg/D5W 275ml IVPB SCH ×2 (17:00)
[2016-05-23] MEDS ORDERED: 1/2 NS 1000ml IV ONE ×2 (17:19)
[2016-05-23] MEDS ORDERED: Sterile Water Irrig 1000ml IRRIG ONE (17:19)
[2016-05-23] MEDS ORDERED: NS 275ml ONE (17:19)
--- NOTE | 2016-05-24 22:51 | Diagnostic Imaging Report ---
APPROVED REPORT CPT Code: 65667 Present Symptoms Lower Extremity Pain: Bilateral Shortness of breath Comments: Technically difficult study (bilateral contractures of the hip and knee). BILATERAL: Imaging reveals a patent deep venous system bilaterally. There is no evidence of thrombus within the femoral, popliteal or tibial segments. The greater saphenous veins are also within normal limits. Doppler indicates normal spontaneous flow within these segments.
--- NOTE | 2016-05-25 12:13 | Discharge Summary ---
Discharge Summary Hospital Course Date of Admission May 20, 2016 at 13:01 Date of Discharge May 23, 2016 at 17:20 Admitting Diagnosis Respiratory Failure HPI Joselyn Galaviz is a 60 year old female who was admitted on May 20, 2016 at 13:01 for Respiratory Failure Hospital Course [id number] Discharge Discharge Disposition Patient was discharged to SNF/Subacute Facility(03) Discharge Diagnoses: Vee Fernandes NP May 25, 2016 12:13
--- NOTE | 2016-05-25 22:38 | Discharge Summary 2 SIG ---
DATE OF ADMISSION: 05/20/2016 DATE OF DISCHARGE: 05/23/2016 [employer] INSULATOR: Jonatan Lee M.D. BRIEF HOSPITAL COURSE: The patient is an unfortunate 60-year-old female from senior care. She was brought into emergency room for complaints of dyspnea. On evaluation at ED, was found to be in acute respiratory failure. Chest x-ray showed bilateral infiltrates. She came in with leukocytosis. WBC was 23. Lactic acid of 11. She was placed on BiPAP at ED and had a central line placed in on the left femoral vein and had an episode of focal seizure at the right upper extremity. Ativan was given. She was seen by Infectious Disease specialist for severe sepsis, fever and leukocytosis. She was pancultured and was started on empiric IV antibiotics. Influenza screening was negative. Blood culture did not isolate any growth. Urine showed growth of Jessica. She was eventually taken off BiPAP. She came in with multiple decubitus pressure ulcer. Wound care nurse was consulted and daily wound care was done. Venous duplex of lower extremity was negative for DVT. A blood smear was done showing reactive thrombocytosis. She was eventually discharged back to nursing facility to continue 7 more days of antibiotic. FINAL DIAGNOSES: 1. Acute respiratory failure requiring BiPAP, resolved. 2. Tachyarrhythmia. 3. Sepsis. 4. Anemia. 5. Dysphagia on G-tube. 6. Altered level of consciousness/acute on chronic metabolic encephalopathy. 7. Multiple decubiti present on admission, not grossly infected. 8. Functional quadriplegia/bedbound. 9. Thrombocytosis. 10. Chronic left hip fracture. 11. Do not resuscitate. Yimi Ansari M.D. I have been assigned to dictate discharge summary on this account and I was not involved in the patient's management. Vee Fernandes N.P. DR: ALDEN JOB#: [id number] CC:
== END 2016-05-23 17:20 | DRG 720 ==
LOC: EDBD 12:35 → EMR 12:53 → EDBEDREQ 12:57 → 2W 13:01 → EDBEDREQ 15:40
PROC: 06HN33Z Insertion of Infusion Device into Left Femoral Vein, Percutaneous Approach (ICD-10-PCS; principal; 2016-05-20)
DX: A41.9 Sepsis, unspecified organism (principal); J96.00 Acute respiratory failure, unspecified whether with hypoxia or hypercapnia; G93.1 Anoxic brain damage, not elsewhere classified; L89.524 Pressure ulcer of left ankle, stage 4; L89.514 Pressure ulcer of right ankle, stage 4; L89.154 Pressure ulcer of sacral region, stage 4; J18.9 Pneumonia, unspecified organism; L89.894 Pressure ulcer of other site, stage 4; R65.20 Severe sepsis without septic shock; R53.2 Functional quadriplegia; R13.10 Dysphagia, unspecified; Z93.1 Gastrostomy status; G40.909 Epilepsy, unspecified, not intractable, without status epilepticus; E11.9 Type 2 diabetes mellitus without complications; J44.0 Chronic obstructive pulmonary disease with (acute) lower respiratory infection; I10 Essential (primary) hypertension; Z66 Do not resuscitate; N39.0 Urinary tract infection, site not specified; J98.11 Atelectasis; D64.9 Anemia, unspecified; D47.3 Essential (hemorrhagic) thrombocythemia
CPT/HCPCS: 36415; 36600; 71010; 80048; 80053; 80069; 81003; 82550; 82803; 82962; 83605; 83880; 84484; 85007; 85025; 85610; 85730; 86710; 87040; 87086; 93005; 93970; 94640; 94660; 94760; J1815